=== PATIENT | female | born 2000 | race Caucasian/White ===

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

== ENCOUNTER 2019-01-04 12:44 | Outpatient (CLI) | payer OTHER, SELFPAY ==
[2019-01-07 12:48] LABS: HBs Antibody, Quant 6.9 mIU/mL; Hepatitis B Surface Ab Negative
[2019-01-07 13:07] LABS: Rubella IgG Ab (UVM) Positive; Varicella IgG Antibody Positive
[2019-01-07 13:16] LABS: Measles IgG Antibody Positive; Mumps Antibody IgG Positive (Negative)
[2019-01-07 13:45] LABS: TB Interpretation Negative (NEGAT)
== END 2019-01-04 13:04 ==
PROVIDERS: Nurse Practitioner Family; PCP Pediatrics; Visit Provider Pediatrics
DX: Z11.1 Encounter for screening for respiratory tuberculosis (principal); Z01.84 Encounter for antibody response examination
CPT/HCPCS: 36415; 86706; 86787; 86480; 86735; 86762; 86765

== ENCOUNTER 2020-03-13 11:09 | Outpatient (CLI) | payer OTHER, SELFPAY ==
[2020-03-13 12:13] LABS: HCG Quant, Pregnancy 548 mIU/mL (1-3)
== END 2020-03-13 11:29 ==
PROVIDERS: PCP Nurse Practitioner Family; Visit Provider Advanced Practice Midwife
DX: N91.2 Amenorrhea, unspecified (principal)
CPT/HCPCS: 36415; 84702

== ENCOUNTER 2020-03-16 02:37 | Outpatient (CLI) | payer OTHER, SELFPAY ==
[2020-03-16 14:01] LABS: HCG Quant, Pregnancy 1991 mIU/mL (1-3)
== END 2020-03-16 02:57 ==
PROVIDERS: PCP Nurse Practitioner Family; Visit Provider Advanced Practice Midwife
DX: N92.5 Other specified irregular menstruation (principal)
CPT/HCPCS: 36415; 84702

== ENCOUNTER 2020-11-11 16:02 | Outpatient (REF) | payer OTHER, SELFPAY ==
--- NOTE | 2020-11-11 11:45 | PAPFT_PTH ---
PATIENT: Stacy Hardy LOC: [facility]#:[id number] AGE/SX: 20/F ROOM: RE11/11/[address]: Whit Avelar : 2000 BED: DIS: 11/11/2020 SPEC #: [id number] RECD: 11/12/20 13:09 STATUS: RENEE RELara #: [id number] ASHLEY: 11/11/20 11:[address]: Whit Avelar DEPT: [facility] Cytology RECD BY: Luz Vasques Tissues: 1 - CX/ENDOCX FOR PAP SMEARS Procedures: PAP THIN PREP/UVM Screening Comments: [id number] (CHLAMYDIA/GC)
[2020-11-13 15:19] LABS: Chlamydia Result Negative (Negative); GC Result Negative (Negative)
== END 2020-11-11 16:03 | disposition home or self-care (01) ==
LOC: NCHCN 16:02
PROVIDERS: PCP Nurse Practitioner Family; Visit Provider Nurse Practitioner Family
DX: Z00.00 Encounter for general adult medical examination without abnormal findings (principal); Z11.3 Encounter for screening for infections with a predominantly sexual mode of transmission; Z12.4 Encounter for screening for malignant neoplasm of cervix; Z01.419 Encounter for gynecological examination (general) (routine) without abnormal findings
CPT/HCPCS: 87491; 87591; 88142

== ENCOUNTER 2020-12-04 13:44 | Outpatient (REF) | payer OTHER, SELFPAY ==
[2020-12-07 14:11] LABS: Chlamydia Result Negative (Negative); GC Result Negative (Negative)
== END 2020-12-04 13:45 | disposition home or self-care (01) ==
LOC: LBN 13:44
PROVIDERS: PCP Nurse Practitioner Family; Visit Provider Physician Assistant Medical
DX: N89.8 Other specified noninflammatory disorders of vagina (principal)
CPT/HCPCS: 87491; 87591; 87480; 87510; 87660

== ENCOUNTER 2021-04-21 09:25 | Outpatient (REF) | payer OTHER, SELFPAY ==
[2021-04-21 14:48] LABS: HCT 41.7 % (36.0-46.0); HGB 13.3 g/dL (11.2-15.7); MCH 27.9 pg (27.0-33.0); MCHC 31.9 % (32.0-36.0); MCV 87.6 fL (80-95); MPV 9.8 fL (8.0-11.0); Platelet Count 376 10^3/uL (130-400); RBC 4.76 10^6/uL (3.93-5.22); RDW 12.5 % (11.7-14.6); RDW-SD 40.3 fL; WBC 6.32 10^3/uL (4.4-10.8)
[2021-04-21 15:32] LABS: Anion Gap 9.9 mmol/L (3-11); BUN 9 mg/dL (7-18); CO2 26.1 mmol/L (21.0-32.0); CREATININE 0.6 mg/dL (0.55-1.02); Calcium 9.2 mg/dL (8.5-10.1); Chloride 103 mmol/L (98-107); Glucose 78 mg/dL (74-106); Potassium 4.1 mmol/L (3.5-5.1); Sodium 139 mmol/L (136-145)
[2021-04-21 15:34] LABS: Iron 113 ug/dL (50-170); Total Iron Binding Capacity 337 ug/dL (250-450); Transferrin Sat 34 % (15-50)
[2021-04-22 00:44] LABS: Vitamin D 25 Total 34.7 ng/mL (30-100)
== END 2021-04-21 09:26 | disposition home or self-care (01) ==
LOC: NCHCN 09:25
PROVIDERS: PCP Nurse Practitioner Family; Visit Provider Nurse Practitioner Family
DX: R53.83 Other fatigue (principal)
CPT/HCPCS: 80048; 82306; 85027; 83540; 83550; 84443

== ENCOUNTER 2021-08-30 18:18 | Outpatient (CLI) | payer OTHER, SELFPAY ==
[2021-08-30 14:06] LABS: Ferritin 87 ng/mL (8-252)
== END 2021-08-30 18:19 | disposition home or self-care (01) ==
LOC: LBO 18:19
PROVIDERS: PCP Nurse Practitioner Family; Visit Provider Nurse Practitioner
DX: G47.61 Periodic limb movement disorder (principal); M25.50 Pain in unspecified joint; M79.641 Pain in right hand; M79.642 Pain in left hand
CPT/HCPCS: 36415; 82728

== ENCOUNTER 2022-04-05 18:56 | Outpatient (REF) | payer OTHER, SELFPAY ==
[2022-04-05 15:34] LABS: Ferritin 204 ng/mL (8-252)
== END 2022-04-05 18:57 | disposition home or self-care (01) ==
LOC: NCHCN 18:56
PROVIDERS: PCP Nurse Practitioner Family; Visit Provider Nurse Practitioner Family
DX: R53.83 Other fatigue (principal); R40.0 Somnolence; L08.89 Other specified local infections of the skin and subcutaneous tissue
CPT/HCPCS: 82728

== ENCOUNTER 2024-02-09 01:47 | Outpatient (CLI) | payer OTHER, SELFPAY ==
--- OUTSIDE RECORDS SUMMARY | 2024-02-09 01:49 | XMS_ITS | Clinical Summary ---
Author Organization [facility] Address [address] [place] [id number] Care Team Providers Care Assistant Paralegal Name Role Phone Whit Avelar KARY Primary Care Provider [phone] Social History Tobacco Use Types Packs/Day Years Used Date Smoking Tobacco: Never Assessed Comments Unknown Sex and Gender Information Value Date Recorded Sex Assigned at Not on file Legal Sex Female 13:07 EDT Gender Identity Not on file Sexual Orientation Not on file Plan of Treatment Health Maintenance Due Date Last Done Comments Hepatitis C Screen 2000 Hepatitis B Vaccine (1 of 3 - 19+ 3-dose series) 04/11 COVID-19 Vaccine (2023- season) 2023 Insurance Care Teams Assistant Paralegal Relationship Specialty Start Date End Date Whit Avelar FNP [address] [place] [id number] PCP - General 05/25/22
--- OUTSIDE RECORDS SUMMARY | 2024-02-09 01:49 | XMS_ITS | Clinical Summary ---
Author Organization [facility] [place] [address] Care Team Providers Care Operations Label Clerk Name Role Phone Unknown Primary Care Provider Unavailabl e Allergies No known active allergies Medications No known medications Social History Tobacco Use Types Packs/Day Years Used Date Smoking Tobacco: Never Smokeless Tobacco: Never Sex and Gender Information Value Date Recorded Sex Assigned at Not on file Gender Identity Not on file Sexual Orientation Not on file Plan of Treatment Health Maintenance Due Date Last Done Comments Chlamydia Screening 2014 HPV vaccine (1 - 3-dose series) 2014 HIV screen 2017 Hepatitis C Screening 2017 Hepatitis B vaccine (0-59 yrs) (1) 2018 Tetanus/Diphtheria/Pertussis Vaccines (1 - Tdap) 04/11 PAP Smear 2020 Covid-19 Vaccine ( season) 2023 Influenza (Flu) vaccine (1 o f 1 - Influenza standard series) 11/26/2023 Advance Directives Documents on File Type Date Recorded Patient Corporate Counselor Expl anation Personal Corporate Counselor 01/15/2018 3:11 PM Linda Hardy Care Teams Operations Label Clerk Relationship Specialty Start Date End Date Unknown None PCP - General 08/10/21
--- OUTSIDE RECORDS SUMMARY | 2024-02-09 01:49 | XMS_ITS | Continuity of Care Document ---
Author Organization [facility] Address [address] [place] [id number] Care Team Providers Care Plasma Table Operator Name Role Phone MIQUEL SLIVERMAN Primary Care Physician Encounter LTTL_ME FIN NBR [id number] Date(s): 06/06/22 - 06/07/22 [facility] [address] [place] [address]- [place] Encounter Diagnosis Acute appendicitis(Discharge Diagnosis) - 06/07/22 Discharge Disposition: Home f/u Internal Provider Attending Physician: Gil Celestin MD Admitting Physician: Gil Celestin MD Allergies, Adverse Reactions, Alerts No Known Allergies Assessment and Plan Diagnostic Tests Pending * Pathology Request 06/07/22 Functional Status 06/07/22 Breakfast Percent 0 06/07/22 Living Environment No Living Environmen t Information Available Lives In Multilevel home Living Situation Home independently Home Barriers None 06/07/22 Anti-Embolism Device Activity: Patient r efused Family Member Travel History No recent t lamarel Recent Travel History No recent travel Other exposure to Infectious Disease Non e Medications oxyCODONE 5 mg oral tablet 5 mg = 1 tab, Oral, every 6 hr, PRN pain, breakthrough, X 3 days, # 5 tab, 0 Refill(s), 06/10/22 13:20:00 EDT, Pharmacy: [facility], [id number], cm, 06/07/22 4:14:00 EDT, Height/Length Dosing, 92.7, kg, 06/07/22 4:14:00 EDT, Weight Dosing Start Date: 06/07/22 Stop Date: 06/10/22 Status: Ordered Mental Status 06/07/22 Eye Opening Response Caroline Spontaneous ly Best Verbal Response Caroline Oriented Best Motor Response Bard Obeys comman ds Bard Coma Score 15 Problem List No Known Problems Procedures Procedure Date Related Diagnosis Body Site Status Appendectomy Laparoscopy 1 06/07/22 Completed 1auto-populated from documented surgical case Results Laboratory List Name Date SARS-CoV-2 (COVID-19)/Flu/RSV (GeneXpert ) 06/07/22 Urinalysis with Micro if Indicated and C ulture if Indicated 06/07/22 Automated Diff 06/07/22 CBC w/ Diff 06/07/22 Comprehensive Metabolic Panel (CMP) 06/07 Test Serum Qual 06/07/22 Most recent to oldest [Reference Range]: 1 WBC [4.8-10.8 K/mcL] 19.2 K/mcL *HI* (06/07/22 12:01 AM) RBC [4.20-5.40 Million/mcL] 4.81 Million /mcL (06/07/22 12:01 AM) Neutro Auto [42.2-75.2 %] 84.5 % *HI* (06/07/22 12:01 AM) Lymph Auto [20.5-51.1 %] 8.0 % *LOW* (06/07/22 12:01 AM) Foster Auto [1.7-9.3 %] 6.7 % (06/07/22 12:01 AM) Basophil Auto [0.0-0.8 %] 0.3 % (06/07/22 12:01 AM) BUN [8-26 mg/dL] 13 mg/dL (06/07/22 12:01 AM) UA Color [Yellow] Yellow (06/07/22 12:25 AM) Glucose Level [74-106 mg/dL] 132 mg/dL *HI* (06/07/22 12:01 AM) Potassium Level [3.5-5.1 mmol/L] 4.0 mmo l/L (06/07/22 12:01 AM) Baso Absolute [0.0-0.2 K/mcL] 0.1 K/mcL (06/07/22 12:01 AM) MCV [81.0-99.0 fL] 87.1 fL (06/07/22 12:01 AM) UA Urobilinogen [0.2] 0.2 (06/07/22 12:25 AM) UA Bili [Negative] Negative (06/07/22 12:25 AM) UA Ketones >=80 mg/dL *NA* (06/07/22 AM) AST [15-41 IntlUnit/L] 21 IntlUnit/L (06/07/22 12 AM) ALT [14-54 IntlUnit/L] 23 IntlUnit/L (06/07/22 AM) MCHC [32.0-36.0 g/dL] 32.7 g/dL (06/07/22 AM) Osmolality [275-295 mOsm/kg] 276 mOsm/kg (06/07/22 AM) Sodium Level [134-143 mmol/L] 137 mmol/L (06/07/22 AM) UA Leuk Est [Negative] Negative (06/07/22 AM) Lymph Absolute [1.2-3.4 K/mcL] 1.5 K/mcL (06/07/22 AM) UA Nitrite [Negative] Negative (06/07/22 AM) UA Glucose [Negative] Negative (06/07/22) Hct [37.0-47.0 %] 41.9 % (06/07/22 AM) Calcium Level [8.9-10.3 mg/dL] 9.3 mg/dL (06/07/22 AM) Foster Absolute [0.1-0.6 K/mcL] 1.3 K/mcL *HI* (06/07/22 AM) Albumin Level [3.5-5.0 g/dL] 4.4 g/dL (06/07/22 AM) Protein Total [6.5-8.1 g/dL] 7.3 g/dL (06/07/22 AM) UA Protein [Negative] Negative (06/07/22 AM) MCH [27.0-31.0 pg] 28.5 pg (06/07/22 AM) Neutro Absolute [1.4-6.5 K/mcL] 16.2 K/m cL *HI* (06/07/22 AM) Bilirubin Total [0.2-1.2 mg/dL] 0.8 mg/d L (06/07/22 AM) Hgb [12.0-16.0 g/dL] 13.7 g/dL (06/07/22 12: AM) Alk Phos [38-130 IntlUnit/L] 65 IntlUnit /L (06/07/22 12: AM) UA Blood [Negative] Negative (06/07/22 12: AM) MPV [7.4-10.4 fL] 9.5 fL (06/07/22 12: AM) UA Spec Grav 1.020 *NA* (06/07/22 AM) Platelets [130-400 K/mcL] 376 K/mcL (06/07/22 AM) CO2 [22-32 mmol/L] 23 mmol/L (06/07/22 AM) Eos Absolute [0.0-0.2 K/mcL] 0.0 K/mcL (06/07/22: AM) UA pH 7.00 *NA* (06/07/22 AM) UA Appear [Clear] Slightly Cloudy *ABN* (06/07/22: AM) Chloride Level [98-111 mmol/L] 104 mmol/ L (06/07/22 12: AM) RDW-CV [11.5-14.5 %] 12.4 % (06/07/22 12: AM) A/G Ratio 1.5 *NA* (06/07/22 12: AM) BUN/Creat Ratio [8.0-20.0] 23.6 *HI* (06/07/22 12: AM) Globulin 2.9 *NA* (06/07/22: AM) hCG Qual Serum [Negative] Negative (06/07/22 12: AM) Imm Gran Absolute 0.08 *NA* (06/07/22 12: AM) Imm Gran Auto [0.0-0.5 %] 0.4 % (06/07/22 12: AM) Urine Srce Clean Catch (06/07/22 12:25 AM) Creatinine Level [0.44-1.00 mg/dL] 0.55 mg/dL (06/07/22 12:01 AM) Employed in healthcare? No *NA* (06/07/22 2:10 AM) Symptomatic as defined by CDC? No *NA* (06/07/22 2:10 AM) Hospitalized due to COVID-19? No *NA* (06/07/22 2:10 AM) In ICU? No *NA* (06/07/22 2:10 AM) Group care resident? No *NA* (06/07/22 2:10 AM) status? Not *NA* (06/07/22 2:10 AM) SARS-CoV-2(Covid19)PCR(GXpert COVFLURSV) [Negative] Negative (06/07/22 2:10 AM) Flu A (GXpert COVFLURSV) [Negative] Nega tive (06/07/22 2:10 AM) RSV (GXpert COVFLURSV) [Negative] Negati ve (06/07/22 2:10 AM) Flu B (GXpert COVFLURSV) [Negative] Nega tive (06/07/22 2:10 AM) Anion Gap [3.0-12.0] 10.0 (06/07/22 12:01 AM) Eos, Auto [0.00-3.00 %] 0.10 % (06/07/22 12:01 AM) eGFR CKD-EPI [>=60 mL/min/1.73 m2] 132 m L/min/1.73 m2 (06/07/22 12:01 AM) Radiology Reports * Exam Date Time Procedure Performing Provider Status 06/07/22 12:[address] Abdomen and Pelvis w/ Contrast Dm James; Modified Notes: (CT Abdomen and Pelvis w/ Contrast) Reason For Exam: rlq pain CT Abdomen and Pelvis w/ Contrast ADDENDUM THIS REPORT CONTAINS FINDINGS THAT MAY BE CRITICAL TO PATIENT CARE. The findings were verbally communicated via telephone conference with Summer Jefferson at 1:52 AM EDT on 06/07/2022. The findings were acknowledged and understood. THIS DOCUMENT HAS BEEN ELECTRONICALLY SIGNED BY DM MCCORMACK MD on 06/07/2022 01:52 AM Final Signed by: Dm Mccormack MD Signed (Electronic Signature): 06/07/2022 1:[address] Abdomen and Pelvis w/ Contrast PROCEDURE INFORMATION: Exam: CT Abdomen And Pelvis With Contrast Exam date and time: 06/07/2022 12:48 AM Age: 22 years old Clinical indication: RLQ abdominal pain TECHNIQUE: Imaging protocol: Computed tomography of the abdomen and pelvis with contrast. Radiation optimization: All CT scans at this facility use at least one of these dose optimization techniques: automated exposure control; mA and/or kV adjustment per patient size (includes targeted exams where dose is matched to clinical indication); or iterative reconstruction. Contrast material: ISOVUE 300; Contrast volume: 100 ml; Contrast route: INTRAVENOUS (IV); REPORTING DATA: Count of CT and Cardiac NM exams in prior 12 months: This patient has received 0 known CTs and 0 known cardiac nuclear medicine studies in the 12 months prior to the current study. COMPARISON: No relevant prior studies available. FINDINGS: Lungs: No acute infiltrate in either lung base. Liver: Normal. No mass. Gallbladder and bile ducts: Normal. No calcified stones. No ductal dilation. Pancreas: Normal. No ductal dilation. Spleen: Normal. No splenomegaly. Adrenal glands: Normal. No mass. Kidneys and ureters: No hydronephrosis. No calcified renal or ureteral stones. No perinephric stranding or perinephric fluid. Stomach and bowel: Unremarkable. No obstruction. No mucosal thickening. Appendix: Fluid-filled dilated appendix measuring up to 9-10 mm in caliber with multiple small internal appendicoliths or debris. Trace periappendiceal stranding. No associated perforation or abscess. Intraperitoneal space: No intraperitoneal free air. Small amount of free fluid in the dependent portion of the pelvis. Vasculature: Unremarkable. No abdominal aortic aneurysm. Lymph nodes: No enlarged lymph nodes. Urinary bladder: Unremarkable as visualized. Reproductive: Unremarkable as visualized. Bones/joints: Unremarkable. No acute fracture. Soft tissues: Small fat-containing umbilical hernia. IMPRESSION: EARLY ACUTE APPENDICITIS: Fluid-filled dilated appendix measuring up to 9-10 mm in caliber with multiple small internal appendicoliths or debris. Trace periappendiceal stranding. No associated perforation or abscess. THIS DOCUMENT HAS BEEN ELECTRONICALLY SIGNED BY DM MCCORMACK MD on 06/07/2022 01:49 AM Final Signed by: Dm Mccormack MD Signed (Electronic Signature): 06/07/2022 1:49 am Vital Signs Most recent to oldest [Reference Range]: 1 2 3 Temperature Temporal Artery [36-38 Deg C] 36.5 Deg C (06/07/22 3:07 PM) 38.0 Deg C (06/07/22 2:41 PM) 37.8 Deg C (06/07/22 12:24 PM) Temperature Temporal Artery (DegF) [97.3-100 Deg F] 100.04 Deg F *HI* (06/07/22 12:24 PM) Peripheral Pulse Rate [60-100 bpm] 72 bpm (06/07/22 2:18 PM) 74 bpm (06/07/22 1:45 PM) 76 bpm (06/07/22 1:16 PM) Heart Rate Monitored [60-100 bpm] 88 bpm (06/07/22 5:38 PM) 84 bpm (06/07/22 4:00 PM) 80 bpm (06/07/22 3:30 PM) Respiratory Rate [12-24 br/min] 15 br/min (06/07/22 12:50 PM) 9 br/min *LOW* (06/07/22 12:33 PM) 18 br/min (06/07/22 7:28 AM) Blood Pressure [90-140/60-90 mmHg] 132/84mmHg (06/07/22 5:38 PM) 124/89mmHg (06/07/22 4:00 PM) 132/86mmHg (06/07/22 3:30 PM) Mean Arterial Pressure, Cuff [65-140 mmHg] 96 mmHg (06/07/22 12:50 PM) 97 mmHg (06/07/22 12:33 PM) 91 mmHg (06/07/22 12:24 PM) Mean Arterial Pressure Cuff 94 mmHg (06/07/22 12:50 PM) 95 mmHg (06/07/22 12:33 PM) 90 mmHg (06/07/22 12:24 PM) Blood Pressure Location Right arm (06/07/22 4:09 AM) Patient Position BP Supine (06/07/22 4:09 AM) Weight 92.700 kg (06/07/22 4:09 AM) 92.700 kg (06/07/22 4:08 AM) 91.63 kg (06/06/22 11:48 PM) Weight Dosing 92.700 kg (06/07/22 4:09 AM) 92.700 kg (06/07/22 4:08 AM) 91.63 kg (06/06/22 11:57 PM) Height 167.640 cm (06/07/22 4:09 AM) 167.640 cm (06/07/22 4:08 AM) 167.640 cm (06/06/22 11:48 PM) Height/Length Dosing 167.640 cm (06/07/22 4:09 AM) 167.640 cm (06/07/22 4:08 AM) 167.640 cm (06/06/22 11:57 PM) Body Mass Index 32.990 kg/m2 (06/07/22 4:09 AM) 32.990 kg/m2 (06/07/22 4:08 AM) 33.000 kg/m2 (06/06/22 11:48 PM) Social History Social History Type Response Tobacco Never tobacco user T obacco Use:. Sex Hospital Discharge Instructions Patient Education 06/07/2022 12:19:34 Laparoscopic Appendectomy, Adult, Care After Laparoscopic Appendectomy, Adult, Care After This sheet gives you information about how to care for yourself after your procedure. Your health care provider may also give you more specific instructions. If you have problems or questions, contact your health care provider. What can I expect after the procedure? After the procedure, it is common to have: ??? Little energy for normal activities. ??? Mild pain in the area where the incisions were made. ??? Difficulty passing stool (constipation). This can be caused by: ??? Pain medicine. ??? A decrease in your activity. Follow these instructions at home: Medicines ??? Take gzke-zpl-dlctyol and prescription medicines only as told by your health care provider. ??? If you were prescribed an antibiotic medicine, take it as told by your health care provider. Donot stop taking the antibiotic even if you start to feel better. ??? Do not drive or use heavy machinery while taking prescription pain medicine. ??? Ask your health care provider if the medicine prescribed to you can cause constipation. You mayneed to take steps to prevent or treat constipation, such as: ??? Drink enough fluid to keep your urine pale yellow. ??? Take spwr-imu-ewqpvuh or prescription medicines. ??? Eat foods that are high in fiber, such as beans, whole grains, and fresh fruits and vegetables. ??? Limit foods that are high in fat and processed sugars, such as fried or sweet foods. Incision care ??? Follow instructions from your health care provider about how to take care of your incisions. Make sure you: ??? Wash your hands with soap and water before and after you change your bandage (dressing). If soap and water are not available, use hand accounting support specialist. ??? Change your dressing as told by your health care provider. ??? Leave stitches (sutures), skin glue, or adhesive strips in place. These skin closures may need to stay in place for 2 weeks or longer. If adhesive strip edges start to loosen and curl up, you maytrim the loose edges. Do not remove adhesive strips completely unless your health care provider tells you to do that. ??? Check your incision areas every day for signs of infection. Check for: ??? Redness, swelling, or pain. ??? Fluid or blood. ??? Warmth. ??? Pus or a bad smell. Bathing ??? Keep your incisions clean and dry. Clean them as often as told by your health care provider. Todo this: 1. Gently wash the incisions with soap and water. 2. Rinse the incisions with water to remove all soap. 3. Pat the incisions dry with a clean towel. Do not rub the incisions. ??? Do not take baths, swim, or use a hot tub for 2 weeks, or until your health care provider approves. You may take showers after 48 hours. Activity ??? Do not drive for 24 hours if you were given a sedative during your procedure. ??? Rest after the procedure. Return to your normal activities as told by your health care provider. Ask your health care provider what activities are safe for you. ??? For 3 weeks, or for as long as told by your health care provider: ??? Do not lift anything that is heavier than 10 lb (4.5 kg), or the limit that you are told. ??? Do not play contact sports. General instructions ??? If you were sent home with a drain, follow instructions from your health care provider about how to care for it. ??? Take deep breaths. This helps to prevent your lungs from developing an infection (pneumonia). ??? Keep all follow-up visits as told by your health care provider. This is important. Contact a health care provider if: ??? You have redness, swelling, or pain around an incision. ??? You have fluid or blood coming from an incision. ??? Your incision feels warm to the touch. ??? You have pus or a bad smell coming from an incision or dressing. ??? Your incision edges break open after your sutures have been removed. ??? You have increasing pain in your shoulders. ??? You feel dizzy or you faint. ??? You develop shortness of breath. ??? You keep feeling nauseous or you are vomiting. ??? You have diarrhea or you cannot control your bowel functions. ??? You lose your appetite. ??? You develop swelling or pain in your legs. ??? You develop a rash. Get help right away if you have: ??? A fever. ??? Difficulty breathing. ??? Sharp pains in your chest. Summary ??? After a laparoscopic appendectomy, it is common to have little energy for normal activities, mild pain in the area of the incisions, and constipation. ??? Infection is the most common complication after this procedure. Follow your health care provider's instructions about caring for yourself after the procedure. ??? Rest after the procedure. Return to your normal activities as told by your health care provider. ??? Contact your health care provider if you notice signs of infection around your incisions or youdevelop shortness of breath. Get help right away if you have a fever, chest pain, or difficulty breathing. This information is not intended to replace advice given to you by your health care provider. Make sure you discuss any questions you have with your health care provider. Document Revised: 09/13/2018 Document Reviewed: 09/13/2018 [facility] [facility] Patient Education ?? 2021 [employer]. Follow Up Care 06/06/2022 23:48:18 With:Gil Celestin MD Address: [facility] [address] [address]- When:07/04/2022 08:00:00 Discharge instructions * [place]: PERFORM Event Display: Discharge Instructions Authored Date: [id number] STACY HUNTER :2000 Age:22 years Sex:Female Visit Date:06/06/2022 Primary Care Physician: MIQUEL SILVERMAN Hospital Discharge Instructions We would like to thank you for allowing us to assist you with your healthcare needs. The following includes patient education materials and information regarding your injury/illness. After you leave the hospital, you may get your health information including your test results, physician notes and discharge information by accessing your Patient Portal. Your Next Steps Instructions From Your Care Team Plan to rest and relax today after your procedure/operation. Even after minor surgery you may feel drowsy or tired for several hours. You may also have a sore throat and muscle aches.??DO NOT??drink alcohol after anesthesia or while taking pain medications. You should not drive any vehicle or operate machinery until your doctor says it???s safe.??DO NOT??make any major decisions, sign contracts, etc. for 24 hours. ?? Activity: ?Rest today, tomorrow resume your usual activity. ?Lift no more than 10 pounds until your follow up appointment. Diet: ?Advance to a regular diet. Medications: ?Continue your regular medications ?Prescription given to patient:??oxycodone 5 mg every 6 hours as needed for pain not controlled with Tylenol and ibuprofen ?Last dose of pain ??medication given at hospital: ?Over the counter medications: Tylenol and/or Ibuprofen every 6 hours when needed for pain ?Last dose of over the counter medication given at the hospital: Dressing: ?Your incisions are closed with glue (derma whitten) DO NOT pick or scrub at it. ?Apply ice pack over dressing site for 20 mins on/20 mins off for the first several days. Special Instructions: ?You may take a shower after 48 hours. ?No bathing, soaking or swimming for 2 weeks. ?You may drive after ALL pain medications are stopped. ?? YOU SHOULD CALL YOUR DOCTOR??AT ??FOR ANY OF THE FOLLOWING ?Fever of 101 or higher. ?Pain that does not lessen with the pain medication prescribed. ?Cloudy or foul smelling drainage from the incision. ?Redness, warmth and firmness around the incision. ?Increased numbness or tingling. ?Bleeding or continuous oozing that saturates the bandage and does not stop after applying pressure to incision for 20 minutes. ?Increased swelling of fingers or toes, or severe tightness of bandage not relieved with elevation of limb above the level of your heart. ?Pale blue or cold fingers/toes or nail beds as compared with the opposite side. ?? IF UNABLE TO REACH YOUR DOCTOR GO TO YOUR NEAREST EMERGENCY ROOM ?? Recommended Treatments for Opioid Induced Constipation ?? Dosage Schedule Drug Brand Names Dose Daily Senna-docusate 8.5-5mg per tablet Senokot 2 tablets by mouth 2 times per day (Hold for loose stool) As Needed Magnesium Hydroxide Milk of Magnesia 30mL by mouth 2 times per day as needed As Needed Polyethylene Glycol Miralax 17 grams dissolved in 8 ounces of water, juice or tea once daily as needed As Needed Bisacodyl?? Dulcolax 10mg by mouth once a day as needed for constipation As Needed Phosphate enema Fleet enema 120mL rectally once a day as needed for constipation As Needed Magnesium citrate ?? 150 to 300 mL (1.745g/30mL solution) by mouth once a day as needed for constipation ? Patient/Responsible libertarian signature:? Date/Time: ? RN signature: ? Date/Time: ?? This document was electronically generated via computerized provider telephone order clerk room service (CPOE) by the ordering physician,??Gil Celestin MD Discharge Orders Discharge Disposition, 06/07/22 13:20:00 EDT, Home Independently Follow Up Appointments Follow Up with??Gil Celestin MD When:??07/04/2022 09:00 AM EDT Where: [facility] [address] [place] [address]- Medications What How Much When Instructions Next Dose New oxyCODONE (oxyCODONE 5 mg oral tablet) 1 tab Oral (given by mouth) Every 6 hours as needed for pain, breakthrough Duration: 3 Days Pickup at [facility] Pharmacy Information [facility]: [address], [place] [phone] Your Summary Your Care Team Admitting Physician - Gil Celestin MD Attending Physician - Gil Celestin MD Primary Care Physician - MIQUEL SILVERMAN Your Diagnosis Acute appendicitis Procedures History ???Appendectomy Laparoscopy (06/07/2022) Tests Performed/Pending Automated Diff CBC w/ Diff CMP Pathology Request?-- Results Pending -- Test Serum Qual SARS-CoV-2 (COVID-19)/Flu/RSV (GeneXpert) Urinalysis with Micro if Indicated and Culture if Indicated CT Abdomen and Pelvis w/ Contrast Discharge Vitals Temperature??(Temporal Artery) 97.7 ??F (36.5 ??C) Heart Rate??(Monitored) 84 Respiratory Rate?? 15 Blood Pressure?? 127/81?? Height?? 66.00 in (167.640 cm) Weight?? 204.40 lb (92.700 kg) BMI?? 32.990 Allergies No Known Allergies Education Materials Laparoscopic Appendectomy, Adult, Care After This sheet gives you information about how to care for yourself after your procedure. Your health care provider may also give you more specific instructions. If you have problems or questions, contact your health care provider. What can I expect after the procedure? After the procedure, it is common to have: ? Little energy for normal activities. ? Mild pain in the area where the incisions were made. ? Difficulty passing stool (constipation). This can be caused by: ? Pain medicine. ? A decrease in your activity. Follow these instructions at home: Medicines ? Take eadz-gsn-snjwost and prescription medicines only as told by your health care provider. ? If you were prescribed an antibiotic medicine, take it as told by your health care provider. Do notstop taking the antibiotic even if you start to feel better. ? Do not drive or use heavy machinery while taking prescription pain medicine. ? Ask your health care provider if the medicine prescribed to you can cause constipation. You may need to take steps to prevent or treat constipation, such as: ? Drink enough fluid to keep your urine pale yellow. ? Take fnec-yqo-rcutsbh or prescription medicines. ? Eat foods that are high in fiber, such as beans, whole grains, and fresh fruits and vegetables. ? Limit foods that are high in fat and processed sugars, such as fried or sweet foods. Incision care ? Follow instructions from your health care provider about how to take care of your incisions. Make sure you: ? Wash your hands with soap and water before and after you change your bandage (dressing). If soap and water are not available, use hand accounting support specialist. ? Change your dressing as told by your health care provider. ? Leave stitches (sutures), skin glue, or adhesive strips in place. These skin closures may need to stay in place for 2 weeks or longer. If adhesive strip edges start to loosen and curl up, you may trim the loose edges. Do not remove adhesive strips completely unless your health care provider tells you to do that. ? Check your incision areas every day for signs of infection. Check for: ? Redness, swelling, or pain. ? Fluid or blood. ? Warmth. ? Pus or a bad smell. Bathing ? Keep your incisions clean and dry. Clean them as often as told by your health care provider. To do this: 1.?? Gently wash the incisions with soap and water. 2.?? Rinse the incisions with water to remove all soap. 3.?? Pat the incisions dry with a clean towel. Do not rub the incisions. ? Do not take baths, swim, or use a hot tub for 2 weeks, or until your health care provider approves.You may take showers after 48 hours. Activity ? Do not drive for 24 hours if you were given a sedative during your procedure. ? Rest after the procedure. Return to your normal activities as told by your health care provider. Ask your health care provider what activities are safe for you. ? For 3 weeks, or for as long as told by your health care provider: ? Do not lift anything that is heavier than 10 lb (4.5 kg), or the limit that you are told. ? Do not play contact sports. General instructions ? If you were sent home with a drain, follow instructions from your health care provider about how tocare for it. ? Take deep breaths. This helps to prevent your lungs from developing an infection (pneumonia). ? Keep all follow-up visits as told by your health care provider. This is important. Contact a health care provider if: ? You have redness, swelling, or pain around an incision. ? You have fluid or blood coming from an incision. ? Your incision feels warm to the touch. ? You have pus or a bad smell coming from an incision or dressing. ? Your incision edges break open after your sutures have been removed. ? You have increasing pain in your shoulders. ? You feel dizzy or you faint. ? You develop shortness of breath. ? You keep feeling nauseous or you are vomiting. ? You have diarrhea or you cannot control your bowel functions. ? You lose your appetite. ? You develop swelling or pain in your legs. ? You develop a rash. Get help right away if you have: ? A fever. ? Difficulty breathing. ? Sharp pains in your chest. Summary ? After a laparoscopic appendectomy, it is common to have little energy for normal activities, mild pain in the area of the incisions, and constipation. ? Infection is the most common complication after this procedure. Follow your health care provider's instructions about caring for yourself after the procedure. ? Rest after the procedure. Return to your normal activities as told by your health care provider. ? Contact your health care provider if you notice signs of infection around your incisions or you develop shortness of breath. Get help right away if you have a fever, chest pain, or difficulty breathing. This information is not intended to replace advice given to you by your health care provider. Make sure you discuss any questions you have with your health care provider. Document Revised: 09/13/2018 Document Reviewed: 09/13/2018 [employer] Patient Education ?? 2021 [employer] Patient Name:STACY HUNTER I have received this information and my questions have been answered. Patient/Brush Clearing Laborer Name: Patient/Brush Clearing Laborer Signature: Relationship to Patient: Witness Name/Signature: Date: Electronically Signed on: 06/07/2022 15:54 EDTSigned by:SRIRAM Celestin MD: PERFORM Event Display: Discharge Instructions Authored Date: [id number] DALE STACY :2000 Age:22 years Sex:Female Visit Date:06/06/2022 Primary Care Physician: MIQUEL SILVERMAN Hospital Discharge Instructions We would like to thank you for allowing us to assist you with your healthcare needs. The following includes patient education materials and information regarding your injury/illness. After you leave the hospital, you may get your health information including your test results, physician notes and discharge information by accessing your Patient Portal. Your Next Steps Instructions From Your Care Team Plan to rest and relax today after your procedure/operation. Even after minor surgery you may feel drowsy or tired for several hours. You may also have a sore throat and muscle aches.??DO NOT??drink alcohol after anesthesia or while taking pain medications. You should not drive any vehicle or operate machinery until your doctor says it???s safe.??DO NOT??make any major decisions, sign contracts, etc. for 24 hours. ?? Activity: ?Rest today, tomorrow resume your usual activity. ?Lift no more than 10 pounds until your follow up appointment. Diet: ?Advance to a regular diet. Medications: ?Continue your regular medications ?Prescription given to patient:??oxycodone 5 mg every 6 hours as needed for pain not controlled with Tylenol and ibuprofen ?Last dose of pain ??medication given at hospital: ?Over the counter medications: Tylenol and/or Ibuprofen every 6 hours when needed for pain ?Last dose of over the counter medication given at the hospital: Dressing: ?Your incisions are closed with glue (derma whitten) DO NOT pick or scrub at it. ?Apply ice pack over dressing site for 20 mins on/20 mins off for the first several days. Special Instructions: ?You may take a shower after 48 hours. ?No bathing, soaking or swimming for 2 weeks. ?You may drive after ALL pain medications are stopped. ?? YOU SHOULD CALL YOUR DOCTOR??AT ??FOR ANY OF THE FOLLOWING ?Fever of 101 or higher. ?Pain that does not lessen with the pain medication prescribed. ?Cloudy or foul smelling drainage from the incision. ?Redness, warmth and firmness around the incision. ?Increased numbness or tingling. ?Bleeding or continuous oozing that saturates the bandage and does not stop after applying pressure to incision for 20 minutes. ?Increased swelling of fingers or toes, or severe tightness of bandage not relieved with elevation of limb above the level of your heart. ?Pale blue or cold fingers/toes or nail beds as compared with the opposite side. ?? IF UNABLE TO REACH YOUR DOCTOR GO TO YOUR NEAREST EMERGENCY ROOM ?? Recommended Treatments for Opioid Induced Constipation ?? Dosage Schedule Drug Brand Names Dose Daily Senna-docusate 8.5-5mg per tablet Senokot 2 tablets by mouth 2 times per day (Hold for loose stool) As Needed Magnesium Hydroxide Milk of Magnesia 30mL by mouth 2 times per day as needed As Needed Polyethylene Glycol Miralax 17 grams dissolved in 8 ounces of water, juice or tea once daily as needed As Needed Bisacodyl?? Dulcolax 10mg by mouth once a day as needed for constipation As Needed Phosphate enema Fleet enema 120mL rectally once a day as needed for constipation As Needed Magnesium citrate ?? 150 to 300 mL (1.745g/30mL solution) by mouth once a day as needed for constipation ? Patient/Responsible libertarian signature:? Date/Time: ? RN signature: ? Date/Time: ?? This document was electronically generated via computerized provider telephone order clerk room service (CPOE) by the ordering physician,??Gil Celestin MD Discharge Orders Discharge Disposition, 06/07/22 13:20:00 EDT, Home Independently Discharge Patient Instructions, Lift restrictions of 10 pounds until follow-up appointment Discharge Patient Instructions, No bathing, soaking, or swimming for 10 days Discharge Patient Instructions, Apply ice pack for 20 minutes on and 20 minutes off for first several days Follow Up Appointments Follow Up with??Gil Celestin MD When:??07/04/2022 09:00 AM EDT Where: [facility] [address] [place] [id number]- Medications What How Much When Instructions Next Dose New oxyCODONE (oxyCODONE 5 mg oral tablet) 1 tab Oral (given by mouth) Every 6 hours as needed for pain, breakthrough Duration: 3 Days Pickup at [facility] Pharmacy Information [facility]: [address] [facility] [place] [phone] Your Summary Your Care Team Admitting Physician - Gil Celestin MD Attending Physician - Gil Celestin MD Primary Care Physician - MIQUEL SILVERMAN Your Diagnosis Acute appendicitis Procedures History ???Appendectomy Laparoscopy (06/07/2022) Tests Performed/Pending Automated Diff CBC w/ Diff CMP Test Serum Qual SARS-CoV-2 (COVID-19)/Flu/RSV (GeneXpert) Urinalysis with Micro if Indicated and Culture if Indicated CT Abdomen and Pelvis w/ Contrast Discharge Vitals Temperature??(Temporal Artery) 100.0 ??F (37.8 ??C) Heart Rate??(Peripheral) 76 Respiratory Rate?? 15 Blood Pressure?? 124/77?? Height?? 66.00 in (167.640 cm) Weight?? 204.40 lb (92.700 kg) BMI?? 32.990 Allergies No Known Allergies Education Materials Laparoscopic Appendectomy, Adult, Care After This sheet gives you information about how to care for yourself after your procedure. Your health care provider may also give you more specific instructions. If you have problems or questions, contact your health care provider. What can I expect after the procedure? After the procedure, it is common to have: ? Little energy for normal activities. ? Mild pain in the area where the incisions were made. ? Difficulty passing stool (constipation). This can be caused by: ? Pain medicine. ? A decrease in your activity. Follow these instructions at home: Medicines ? Take kuzy-kon-fsqhhel and prescription medicines only as told by your health care provider. ? If you were prescribed an antibiotic medicine, take it as told by your health care provider. Do notstop taking the antibiotic even if you start to feel better. ? Do not drive or use heavy machinery while taking prescription pain medicine. ? Ask your health care provider if the medicine prescribed to you can cause constipation. You may need to take steps to prevent or treat constipation, such as: ? Drink enough fluid to keep your urine pale yellow. ? Take rzgd-cbm-wrdgxoi or prescription medicines. ? Eat foods that are high in fiber, such as beans, whole grains, and fresh fruits and vegetables. ? Limit foods that are high in fat and processed sugars, such as fried or sweet foods. Incision care ? Follow instructions from your health care provider about how to take care of your incisions. Make sure you: ? Wash your hands with soap and water before and after you change your bandage (dressing). If soap and water are not available, use hand accounting support specialist. ? Change your dressing as told by your health care provider. ? Leave stitches (sutures), skin glue, or adhesive strips in place. These skin closures may need to stay in place for 2 weeks or longer. If adhesive strip edges start to loosen and curl up, you may trim the loose edges. Do not remove adhesive strips completely unless your health care provider tells you to do that. ? Check your incision areas every day for signs of infection. Check for: ? Redness, swelling, or pain. ? Fluid or blood. ? Warmth. ? Pus or a bad smell. Bathing ? Keep your incisions clean and dry. Clean them as often as told by your health care provider. To do this: 1.?? Gently wash the incisions with soap and water. 2.?? Rinse the incisions with water to remove all soap. 3.?? Pat the incisions dry with a clean towel. Do not rub the incisions. ? Do not take baths, swim, or use a hot tub for 2 weeks, or until your health care provider approves.You may take showers after 48 hours. Activity ? Do not drive for 24 hours if you were given a sedative during your procedure. ? Rest after the procedure. Return to your normal activities as told by your health care provider. Ask your health care provider what activities are safe for you. ? For 3 weeks, or for as long as told by your health care provider: ? Do not lift anything that is heavier than 10 lb (4.5 kg), or the limit that you are told. ? Do not play contact sports. General instructions ? If you were sent home with a drain, follow instructions from your health care provider about how tocare for it. ? Take deep breaths. This helps to prevent your lungs from developing an infection (pneumonia). ? Keep all follow-up visits as told by your health care provider. This is important. Contact a health care provider if: ? You have redness, swelling, or pain around an incision. ? You have fluid or blood coming from an incision. ? Your incision feels warm to the touch. ? You have pus or a bad smell coming from an incision or dressing. ? Your incision edges break open after your sutures have been removed. ? You have increasing pain in your shoulders. ? You feel dizzy or you faint. ? You develop shortness of breath. ? You keep feeling nauseous or you are vomiting. ? You have diarrhea or you cannot control your bowel functions. ? You lose your appetite. ? You develop swelling or pain in your legs. ? You develop a rash. Get help right away if you have: ? A fever. ? Difficulty breathing. ? Sharp pains in your chest. Summary ? After a laparoscopic appendectomy, it is common to have little energy for normal activities, mild pain in the area of the incisions, and constipation. ? Infection is the most common complication after this procedure. Follow your health care provider's instructions about caring for yourself after the procedure. ? Rest after the procedure. Return to your normal activities as told by your health care provider. ? Contact your health care provider if you notice signs of infection around your incisions or you develop shortness of breath. Get help right away if you have a fever, chest pain, or difficulty breathing. This information is not intended to replace advice given to you by your health care provider. Make sure you discuss any questions you have with your health care provider. Document Revised: 09/13/2018 Document Reviewed: 09/13/2018 [employer] Patient Education ?? 2021 [employer] Patient Name:STACY HUNTER I have received this information and my questions have been answered. Patient/Brush Clearing Laborer Name: Patient/Brush Clearing Laborer Signature: Relationship to Patient: Witness Name/Signature: Date: Electronically Signed on: 06/07/2022 13:26 EDTSigned by:U Physician Emergency department Note * Summer Jefferson MD: PERFORM Event Display: ED Note Physician Authored Date: [id number] STACY HUNTER :2000 Age:22 years Sex:Female Visit Date:06/06/2022 Primary Care Physician: MIQUEL SILVERMAN Basic Information Time Seen: Summer Jefferson MD / 06/06/2022 23:50 Chief Complaint RLQ pain, abd cramping x 1 day History Of Present Illness: This patient is a 22-year-old female presents today for evaluation of right lower quadrant pain.?? She states the pain started around noon today.?? She did have breakfast and lunch but only had a small snack after this.?? She states that she has not had any fever but has had some nausea vomiting.??No diarrhea.?? The patient has not had any fevers or chills associated with this.?? She describes it as being a cramping type pain which is primarily in the right lower quadrant but also somewhat diffuse over the abdomen.?? Her last menstrual period was May 22. Review of Systems: CONSTITUTIONAL:??No fevers or chills. EYES:??No change in vision. ENT:??No sore throat. ??No headache. ??No neck pain. CARDIOVASCULAR:??No chest pain, palpitations or passing out episodes. RESPIRATORY:??No cough, shortness of breath or hemoptysis. GI:??+abdominal pain. + nausea,+ vomiting no diarrhea. :??No change in urination. SKIN:??No rash. NEUROLOGIC:??No numbness or weakness. MUSCULOSKELETAL:??No swelling or pain. PSYCHIATRIC:??No depression. LYMPH:??No swelling. Review of systems otherwise as stated in HPI Physical Exam Vitals & Measurements T:??36.5?C ??(Temporal Artery)?? HR:??74??(Peripheral)?? RR:??17?? BP:??137/81?? SpO2:??100%?? HT:??167.640??cm?? WT:??91.63??kg?? BMI:??33.000?? Pain Score:??6?? O2 Therapy:??Room air?? General: ??AAOx3. ??GCS15. ??No acute distress, answering questions appropriately. Head: ??Atraumatic; Normocephalic Eye: ??PERRLA; EOMI; no scleral icterus / pallor ENT: moist mucous membranes; no epistaxis. No stridor. Neck: ??Active ROM intact; Trachea Midline. ??No JVD. ??No meningismus appreciated. Skin: Warm, dry Chest: ??Equal BS bilaterally. ??Clear to auscultation bilaterally. Heart: RRR; no murmur, rub, or gallop Abdomen: ??Soft, right lower quadrant tenderness to palpation with guarding, non-distended, no?? rebound, or rigidity. No Hepatosplenomegaly Musculoskeletal: ??ROM intact of all extremities/joints without discomfort. ??Sensation grossly intact throughout. ??No obvious deformity. ??Strength Intact 5/5 throughout. ?? Neuro: Alert and oriented. Answering questions appropriately with clear speech. Motor and sensory grossly normal in all extremities.?? Medical Decision Making: Patient is a 22-year-old female presents today for evaluation of right lower quadrant pain. ??On dam she is tender in the right lower quadrant with some guarding present.?? She arrived afebrile??withnormal vital signs.?? Patient had??lab work which showed an elevated white blood cell count 19 but the rest the CBC was unremarkable.?? CMP was unremarkable.?? test was negative and urinalysis shows no infection.?? CT scan shows early acute appendicitis.?? Patient received morphine for pain control.?? I then spoke with Dr Celestin??who??admit the patient for further management. Procedure No Qualifying Data Assessment/Plan 1.??Acute appendicitis??K35.80 Problem List/Past Medical History Ongoing No qualifying data Historical No qualifying data Medication Administration Given Sodium Chloride 0.9%, 1000 mL, Hydration Bolus morphine, 4 mg, IV Push morphine, 4 mg, IV Push ondansetron, 4 mg, IV Push Allergies No Known Allergies Social History Alcohol Current, Beer, Wine, Liquor, 1-2 times per month Electronic Cigarette/Vaping Electronic Cigarette Use: Never. Tobacco Never tobacco user Tobacco Use:. Diagnostic Results CT Abdomen and Pelvis w/ Contrast 06/07/2022 01:[address] Abdomen and Pelvis w/ Contrast ?? 06/07/22 00:48:07 PROCEDURE INFORMATION: Exam: CT Abdomen And Pelvis With Contrast Exam date and time: 06/07/2022 12:48 AM Age: 22 years old Clinical indication: RLQ abdominal pain ?? TECHNIQUE: Imaging protocol: Computed tomography of the abdomen and pelvis with contrast. Radiation optimization: All CT scans at this facility use at least one of these dose optimization techniques: automated exposure control; mA and/or kV adjustment per patient size (includes targeted exams where dose is matched to clinical indication); or iterative reconstruction. Contrast material: ISOVUE 300; Contrast volume: 100 ml; Contrast route: INTRAVENOUS (IV); ?? REPORTING DATA: Count of CT and Cardiac NM exams in prior 12 months: This patient has received 0 known CTs and 0 known cardiac nuclear medicine studies in the 12 months prior to the current study. ?? COMPARISON: No relevant prior studies available. ?? FINDINGS: Lungs: No acute infiltrate in either lung base. ?? Liver: Normal. No mass. Gallbladder and bile ducts: Normal. No calcified stones. No ductal dilation. Pancreas: Normal. No ductal dilation. Spleen: Normal. No splenomegaly. Adrenal glands: Normal. No mass. Kidneys and ureters: No hydronephrosis. No calcified renal or ureteral stones. No perinephric stranding or perinephric fluid. Stomach and bowel: Unremarkable. No obstruction. No mucosal thickening. Appendix: Fluid-filled dilated appendix measuring up to 9-10 mm in caliber with multiple small internal appendicoliths or debris. Trace periappendiceal stranding. No associated perforation or abscess. Intraperitoneal space: No intraperitoneal free air. Small amount of free fluid in the dependent portion of the pelvis. Vasculature: Unremarkable. No abdominal aortic aneurysm. Lymph nodes: No enlarged lymph nodes. Urinary bladder: Unremarkable as visualized. Reproductive: Unremarkable as visualized. Bones/joints: Unremarkable. No acute fracture. Soft tissues: Small fat-containing umbilical hernia. ?? IMPRESSION: EARLY ACUTE APPENDICITIS: Fluid-filled dilated appendix measuring up to 9-10 mm in caliber with multiple small internal appendicoliths or debris. Trace periappendiceal stranding. No associated perforation or abscess. ? THIS DOCUMENT HAS BEEN ELECTRONICALLY SIGNED BY DM MCCORMACK MD on 06/07/2022 01:49 AM ?? Signed By: Dm Mccormack MD ?? 06/07/22 00:48:07 ADDENDUM THIS REPORT CONTAINS FINDINGS THAT MAY BE CRITICAL TO PATIENT CARE. The findings were verbally communicated via telephone conference with Summer Jefferson at 1:52 AM EDT on 06/07/2022. The findings were acknowledged and understood. ? THIS DOCUMENT HAS BEEN ELECTRONICALLY SIGNED BY DM MCCORMACK MD on 06/07/2022 01:52 AM ?? Signed By: Dm Mccormack MD Lab Results CBC and Differential?? LATEST RESULTS?? WBC?? 06/07/22 00:01?? 19.2 ??High?? RBC?? 06/07/22 00:01?? 4.81?? Hgb?? 06/07/22 00:01?? 13.7?? Hct?? 06/07/22 00:01?? 41.9?? MCV?? 06/07/22 00:01?? 87.1?? MCH?? 06/07/22 00:01?? 28.5?? MCHC?? 06/07/22 00:01?? 32.7?? RDW-CV?? 06/07/22 00:01?? 12.4?? Platelets?? 06/07/22 00:01?? 376?? MPV?? 06/07/22 00:01?? 9.5?? Neutro Auto?? 06/07/22 00:01?? 84.5 ??High?? Lymph Auto?? 06/07/22 00:01?? 8.0 ??Low?? Foster Auto?? 06/07/22 00:01?? 6.7?? Eos, Auto?? 06/07/22 00:01?? 0.10?? Basophil Auto?? 06/07/22 00:01?? 0.3?? Imm Gran Auto?? 06/07/22 00:01?? 0.4?? Neutro Absolute?? 06/07/22 00:01?? 16.2 ??High?? Lymph Absolute?? 06/07/22 00:01?? 1.5?? Foster Absolute?? 06/07/22 00:01?? 1.3 ??High?? Eos Absolute?? 06/07/22 00:01?? 0.0?? Baso Absolute?? 06/07/22 00:01?? 0.1?? Imm Gran Absolute?? 06/07/22 00:01?? 0.08? Routine Chemistry?? LATEST RESULTS?? Sodium Level?? 06/07/22 00:01?? 137?? Potassium Level?? 06/07/22 00:01?? 4.0?? Chloride Level?? 06/07/22 00:01?? 104?? CO2?? 06/07/22 00:01?? 23?? Alk Phos?? 06/07/22 00:01?? 65?? AST?? 06/07/22 00:01?? 21?? ALT?? 06/07/22 00:01?? 23?? BUN?? 06/07/22 00:01?? 13?? Glucose Level?? 06/07/22 00:01?? 132 ??High?? Creatinine Level?? 06/07/22 00:01?? 0.55?? BUN/Creat Ratio?? 06/07/22 00:01?? 23.6 ??High?? Calcium Level?? 06/07/22 00:01?? 9.3?? Protein Total?? 06/07/22 00:01?? 7.3?? Albumin Level?? 06/07/22 00:01?? 4.4?? Globulin?? 06/07/22 00:01?? 2.9?? A/G Ratio?? 06/07/22 00:01?? 1.5?? Bilirubin Total?? 06/07/22 00:01?? 0.8?? Anion Gap?? 06/07/22 00:01?? 10.0?? Osmolality?? 06/07/22 00:01?? 276?? eGFR CKD-EPI?? 06/07/22 00:01?? 132? Testing?? LATEST RESULTS?? hCG Qual Serum?? 06/07/22 00:01?? Negative? UA Macroscopic?? LATEST RESULTS?? Urine Srce?? 06/07/22 00:25?? Clean Catch?? UA Color?? 06/07/22 00:25?? Yellow?? UA Appear?? 06/07/22 00:25?? Slightly Cloudy Abnormal?? UA Glucose?? 06/07/22 00:25?? Negative?? UA Bili?? 06/07/22 00:25?? Negative?? UA Ketones?? 06/07/22 00:25?? >=80?? UA Spec Grav?? 06/07/22 00:25?? 1.020?? UA Blood?? 06/07/22 00:25?? Negative?? UA pH?? 06/07/22 00:25?? 7.00?? UA Protein?? 06/07/22 00:25?? Negative?? UA Urobilinogen?? 06/07/22 00:25?? 0.2?? UA Nitrite?? 06/07/22 00:25?? Negative?? UA Leuk Est?? 06/07/22 00:25?? Negative? Electronically Signed on 06/07/22 08:30 AM Summer Jefferson MD History and physical note * Gil Celestin MD: PERFORM Event Display: History and Physical Authored Date: [id number] STACY HUNTER :2000 Age:22 years Sex:Female Visit Date:06/06/2022 Primary Care Physician: MIQUEL SILVERMAN Chief Complaint RLQ abd'l pain History of Present Illness Stacy Hunter is a 22-year-old woman who presented to the emergency department overnight with??right lower quadrant abdominal pain, nausea, and vomiting.?? Stacy reports that she was in her usual state of health prior to the onset of right lower quadrant abdominal pain??yesterday??around noon.?? She had associated nausea and vomiting. ??Her pain progressed over the course of the day. ??She presented to the emergency department that evening. ??She had??no fevers or chills. ??She denies constipation or diarrhea.?? She has not had pain like this before.?? In the ED, she was evaluated??and found to have leukocytosis and CT evidence of acute appendicitis ?? As described below. ??General surgery was consulted. ??She was admitted and started on antibiotics. ??This a.m., she reports??persistent7 out of 10 right lower quadrant abdominal pain. ??She denies nausea??or fevers.?? She has no personal or family history of inflammatory bowel disease.?? Her only prior??surgical intervention was wisdom teeth removal. ??She denies bleeding or anesthesia complications at the time of that operation. Review of Systems A 10 point review of systems was completed. ??Notable findings are documented above. Physical Exam Vitals & Measurements T:??37.0?C ??(Temporal Artery)?? TMIN:??36.5?C ??(Temporal Artery)?? TMAX:??37.0?C ??(Temporal Artery)?? HR:??102??(Peripheral)?? RR:??18?? BP:??122/73?? SpO2:??95%?? HT:??167.640??cm?? WT:??92.700??kg?? BMI:??32.990?? Pain Score:??3?? O2 Therapy:??Room air?? General: No acute distress, pleasant, conversant CV: RRR Pulmonary: Regular breathing rate and effort Abdomen: Soft, nondistended,??tender to palpation of the right lower quadrant??without rebound painor involuntary guarding Neuro: Grossly intact Skin: Warm, well-perfused,??no rash Extremities: No edema Assessment/Plan 1.??Acute appendicitis??K35.80 Stacy Hunter is a 22-year-old woman??who presents with ~1 day of??right lower quadrant abdominal pain, nausea, and vomiting. ??She has??leukocytosis and CT evidence of acute appendicitis. ??The nature of appendicitis??and the options for management including nonoperative and laparoscopic appendectomy??were reviewed. ??Recommend laparoscopic appendectomy. ??The risk, benefits, and alternatives tothis operation were discussed in detail. ??The expected postoperative recovery including activity restrictions, return to work, postoperative pain control were outlined.?? Stacy demonstrated good un derstanding and agreement. ??He also will be admitted for observation. ??Timing of??appendectomy will depend on or availability. ??We will treat her with antibiotics, pain control, bowel rest, and fluid resuscitation in the interim. Ordered: [facility]SO Place in Observation, Observation, Observation, Gil Celestin MD, 06/07/22 2:02:00 EDT, 06/07/22 2:02:00 EDT, 06/07/22 2:02:00 EDT, 1 midnight or less ?? Orders: acetaminophen, 1,000 mg = 100 mL, IV Piggyback, Injection, every 6 hr (mesha), PRN pain, mild, Administer over: 0.3 hr, First Dose: 06/07/22 2:07:00 EDT, Routine, 333.33 mL/hr HYDROmorphone, 0.5 mg = 0.25 mL, IV Push, Injection, every 2 hr, PRN pain, severe, First Dose: 06/07/22 2:07:00 EDT, Routine ketorolac, 15 mg = 1 mL, IV Push, Vial, every 6 hr, PRN other (see comment), First Dose: 06/07/22 2:07:00 EDT, Routine Lactated Ringers Injection 1,000 mL, Total Volume (mL): 1,000, 1,000 mL, Soln- IV, IV, 100 mL/hr, Start Date: 06/07/22 2:07:00 EDT, 91.63 kg, Populate Charting Weight From Order, 2.07, m2 naloxone, 0.1 mg = 0.25 mL, IV Push, Injection, every 5 min, PRN other (see comment), First Dose: 06/07/22 2:07:00 EDT, Routine ondansetron, 4 mg = 2 mL, IV Push, Vial, every 6 hr, PRN nausea/vomiting, First Dose: 06/07/22 2:07:00 EDT, Routine ondansetron, 4 mg = 1 tab, Oral, Tab-Dis, every 6 hr, PRN nausea/vomiting, First Dose: 06/07/22 2:07:00 EDT, Routine piperacillin-tazobactam, 3.375 g = 1 vials, IV Piggyback, Injection, every 6 hr, Antibiotic Indication Intraabdominal, Administer over: 30 minutes, First Dose: 06/07/22 3:00:00 EDT, Routine, 200 mL/hr prochlorperazine, 10 mg = 2 tab, Oral, Tab, every 6 hr, PRN nausea/vomiting, First Dose: 06/07/22 2:07:00 EDT, Routine prochlorperazine, 5 mg = 1 mL, IV Push, Vial, every 4 hr, PRN nausea/vomiting, First Dose: :07:00 EDT, Routine prochlorperazine, 25 mg = 1 supp, MI, Supp, every 12 hr, PRN nausea/vomiting, First Dose: 06/07/22 2:07:00 EDT, Routine Diet Order, 06/07/22 2:07:00 EDT, NPO Incentive Spirometry Nursing, 06/07/22 2:07:00 EDT Patient Condition, 06/07/22 2:07:00 EDT, Condition Good/ Stable Resuscitation Status, 06/07/22 2:07:00 EDT, Full Code Sequential Compression Devices (SCD's), 06/07/22 2:07:00 EDT, Constant Order Up ad Jimena, 06/07/22 2:07:00 EDT, Constant Order, at nurse's discretion Vital Signs, 06/07/22 2:07:00 EDT, every 4 hr (mesha) Problem List/Past Medical History Ongoing No qualifying data Historical No qualifying data Medications Inpatient acetaminophen, 1000 mg= 100 mL, IV Piggyback, every 6 hr (mesha), PRN HYDROmorphone, 0.5 mg= 0.25 mL, IV Push, every 2 hr, PRN ketorolac, 15 mg= 1 mL, IV Push, every 6 hr, PRN Lactated Ringers Injection 1,000 mL, 1000 mL, IV naloxone, 0.1 mg= 0.25 mL, IV Push, every 5 min, PRN ondansetron, 4 mg= 2 mL, IV Push, every 6 hr, PRN ondansetron, 4 mg= 1 tab, Oral, every 6 hr, PRN piperacillin-tazobactam prochlorperazine, 5 mg= 1 mL, IV Push, every 4 hr, PRN prochlorperazine, 10 mg= 2 tab, Oral, every 6 hr, PRN prochlorperazine, 25 mg= 1 supp, MI, every 12 hr, PRN Home No active home medications Allergies No Known Allergies Social History Alcohol Current, Beer, Wine, Liquor, 1-2 times per month Electronic Cigarette/Vaping Electronic Cigarette Use: Never. Tobacco Never tobacco user Tobacco Use:. Lab Results Last 24 Hours?? Chemistry ? Event Name?? Event Result?? Date/Time?? Sodium Level 137 mmol/L 06/07/22 00:01:00 Potassium Level 4 mmol/L 06/07/22 00:01:00 Chloride Level 104 mmol/L 06/07/22 00:01:00 CO2 23 mmol/L 06/07/22 00:01:00 Alk Phos 65 IntlUnit/L 06/07/22 00:01:00 AST 21 IntlUnit/L 06/07/22 00:01:00 ALT 23 IntlUnit/L 06/07/22 00:01:00 BUN 13 mg/dL 06/07/22 00:01:00 Glucose Level 132 mg/dL??High 06/07/22 00:01:00 Creatinine Level 0.55 mg/dL 06/07/22 00:01:00 BUN/Creat Ratio 23.6??High 06/07/22 00:01:00 Calcium Level 9.3 mg/dL 06/07/22 00:01:00 Protein Total 7.3 g/dL 06/07/22 00:01:00 Albumin Level 4.4 g/dL 06/07/22 00:01:00 Globulin 2.9 06/07/22 00:01:00 A/G Ratio 1.5 06/07/22 00:01:00 Bilirubin Total 0.8 mg/dL 06/07/22 00:01:00 Anion Gap 10 06/07/22 00:01:00 Osmolality 276 mOsm/kg 06/07/22 00:01:00 eGFR CKD-EPI 132 mL/min/1.73 m2 06/07/22 00:01:00 hCG Qual Serum Negative 06/07/22 00:01:00 ? Hematology ? Event Name?? Event Result?? Date/Time?? WBC 19.2 K/mcL??High 06/07/22 00:01:00 RBC 4.81 Million/mcL 06/07/22 00:01:00 Hgb 13.7 g/dL 06/07/22 00:01:00 Hct 41.9 % 06/07/22 00:01:00 MCV 87.1 fL 06/07/22 00:01:00 MCH 28.5 pg 06/07/22 00:01:00 MCHC 32.7 g/dL 06/07/22 00:01:00 RDW-CV 12.4 % 06/07/22 00:01:00 Platelets 376 K/mcL 06/07/22 00:01:00 MPV 9.5 fL 06/07/22 00:01:00 Neutro Auto 84.5 %??High 06/07/22 00:01:00 Lymph Auto 8 %??Low 06/07/22 00:01:00 Foster Auto 6.7 % 06/07/22 00:01:00 Eos, Auto 0.1 % 06/07/22 00:01:00 Basophil Auto 0.3 % 06/07/22 00:01:00 Imm Gran Auto 0.4 % 06/07/22 00:01:00 Neutro Absolute 16.2 K/mcL??High 06/07/22 00:01:00 Lymph Absolute 1.5 K/mcL 06/07/22 00:01:00 Foster Absolute 1.3 K/mcL??High 06/07/22 00:01:00 Eos Absolute 0 K/mcL 06/07/22 00:01:00 Baso Absolute 0.1 K/mcL 06/07/22 00:01:00 Imm Gran Absolute 0.08 06/07/22 00:01:00 ? Urinalysis ? Event Name?? Event Result?? Date/Time?? Urine Srce Clean Catch 06/07/22 00:25:00 UA Color YELLOW. 06/07/22 00:25:00 UA Appear SL CLOUDY Abnormal 06/07/22 00:25:00 UA Glucose NEGATIVE 06/07/22 00:25:00 UA Bili NEGATIVE 06/07/22 00:25:00 UA Ketones >=80 06/07/22 00:25:00 UA Spec Grav 1.02 06/07/22 00:25:00 UA Blood NEGATIVE 06/07/22 00:25:00 UA pH 7 06/07/22 00:25:00 UA Protein NEGATIVE 06/07/22 00:25:00 UA Urobilinogen 0.2 06/07/22 00:25:00 UA Nitrite NEGATIVE 06/07/22 00:25:00 UA Leuk Est NEGATIVE 06/07/22 00:25:00 ? All Other Results ? Event Name?? Event Result?? Date/Time?? Employed in healthcare? No 06/07/22 02:10:00 Symptomatic as defined by CDC? No 06/07/22 02:10:00 Hospitalized due to COVID-19? No 06/07/22 02:10:00 In ICU? No 06/07/22 02:10:00 Group care resident? No 06/07/22 02:10:00 status? Not 06/07/22 02:10:00 SARS-CoV-2(Covid19)PCR(GXpert COVFLURSV) Neg-GeneXPert 06/07/22 02:10:00 Flu A (GXpert COVFLURSV) Neg-GeneXPert 06/07/22 02:10:00 Flu B (GXpert COVFLURSV) Neg-GeneXPert 06/07/22 02:10:00 RSV (GXpert COVFLURSV) Neg-GeneXPert 06/07/22 02:10:00 ? Diagnostic Results ?? CT Abdomen and Pelvis w/ Contrast ?? 06/07/22 00:48:07 PROCEDURE INFORMATION: Exam: CT Abdomen And Pelvis With Contrast Exam date and time: 06/07/2022 12:48 AM Age: 22 years old Clinical indication: RLQ abdominal pain ?? TECHNIQUE: Imaging protocol: Computed tomography of the abdomen and pelvis with contrast. Radiation optimization: All CT scans at this facility use at least one of these dose optimization techniques: automated exposure control; mA and/or kV adjustment per patient size (includes targeted exams where dose is matched to clinical indication); or iterative reconstruction. Contrast material: ISOVUE 300; Contrast volume: 100 ml; Contrast route: INTRAVENOUS (IV); ?? REPORTING DATA: Count of CT and Cardiac NM exams in prior 12 months: This patient has received 0 known CTs and 0 known cardiac nuclear medicine studies in the 12 months prior to the current study. ?? COMPARISON: No relevant prior studies available. ?? FINDINGS: Lungs: No acute infiltrate in either lung base. ?? Liver: Normal. No mass. Gallbladder and bile ducts: Normal. No calcified stones. No ductal dilation. Pancreas: Normal. No ductal dilation. Spleen: Normal. No splenomegaly. Adrenal glands: Normal. No mass. Kidneys and ureters: No hydronephrosis. No calcified renal or ureteral stones. No perinephric stranding or perinephric fluid. Stomach and bowel: Unremarkable. No obstruction. No mucosal thickening. Appendix: Fluid-filled dilated appendix measuring up to 9-10 mm in caliber with multiple small internal appendicoliths or debris. Trace periappendiceal stranding. No associated perforation or abscess. Intraperitoneal space: No intraperitoneal free air. Small amount of free fluid in the dependent portion of the pelvis. Vasculature: Unremarkable. No abdominal aortic aneurysm. Lymph nodes: No enlarged lymph nodes. Urinary bladder: Unremarkable as visualized. Reproductive: Unremarkable as visualized. Bones/joints: Unremarkable. No acute fracture. Soft tissues: Small fat-containing umbilical hernia. ?? IMPRESSION: EARLY ACUTE APPENDICITIS: Fluid-filled dilated appendix measuring up to 9-10 mm in caliber with multiple small internal appendicoliths or debris. Trace periappendiceal stranding. No associated perforation or abscess. ? THIS DOCUMENT HAS BEEN ELECTRONICALLY SIGNED BY DM MCCORMACK MD on 06/07/2022 01:49 AM ?? Signed By: Dm Mccormack MD ?? 06/07/22 00:48:07 ADDENDUM THIS REPORT CONTAINS FINDINGS THAT MAY BE CRITICAL TO PATIENT CARE. The findings were verbally communicated via telephone conference with Summer Jefferson at 1:52 AM EDT on 06/07/2022. The findings were acknowledged and understood. ?? THIS DOCUMENT HAS BEEN ELECTRONICALLY SIGNED BY DM MCCORMACK MD on 06/07/2022 01:52 AM ?? Signed By: Dm Mccormack MD ? Electronically Signed on 06/07/22 07:35 AM Gil Celestin MD Discharge summary * Gil Celestin MD: PERFORM Event Display: Discharge Summary Authored Date: [id number] STACY HUNTER :2000 Age:22 years Sex:Female Visit Date:06/06/2022 Primary Care Physician: MIQUEL SILVERMAN Admission Information Stacy Hunter is a 22-year-old woman who presented to the emergency department overnight with??right lower quadrant abdominal pain, nausea, and vomiting.?? Stacy reports that she was in her usual state of health prior to the onset of right lower quadrant abdominal pain??yesterday??around noon.?? She had associated nausea and vomiting. ??Her pain progressed over the course of the day. ??She presented to the emergency department that evening. ??She had??no fevers or chills. ??She denies constipation or diarrhea.?? She has not had pain like this before.?? In the ED, she was evaluated??and found to have leukocytosis and CT evidence of acute appendicitis ?? As described below. ??General surgery was consulted. ??She was admitted and started on antibiotics. ??This a.m., she reports??persistent7 out of 10 right lower quadrant abdominal pain. ??She denies nausea??or fevers.?? She has no personal or family history of inflammatory bowel disease.?? Her only prior??surgical intervention was wisdom teeth removal. ??She denies bleeding or anesthesia complications at the time of that operation. [1] Hospital Course Stacy was admitted??to the med/surg floor for observation.?? She was treated with IV fluids, Zosyn, and pain medications. ??We discussed options for management of acute appendicitis.?? She elected proceed with laparoscopic appendectomy. ??She was taken to the operating room later that??a.m. for??an uncomplicated laparoscopic appendectomy.?? She did well postoperatively and was deemed appropriate for discharge to home. Significant Findings Inflamed appendix??without evidence of perforation or??necrosis Procedures and Treatment Provided Laparoscopic appendectomy??06/07/2022 Physical Exam Vitals & Measurements T:??37.8?C ??(Temporal Artery)?? TMIN:??36.5?C ??(Temporal Artery)?? TMAX:??37.8?C ??(Temporal Artery)?? HR:??76??(Peripheral)?? RR:??15?? BP:??124/77?? SpO2:??94%?? HT:??167.640??cm?? WT:??92.700??kg?? BMI:??32.990?? Pain Score:??4?? O2 Therapy:??Room air?? General: No acute distress, pleasant, conversant CV: RRR Pulmonary: Regular breathing rate and effort Abdomen: Soft, appropriately tender,??laparoscopic incisions C/D/I Medications Inpatient acetaminophen, 1000 mg= 100 mL, IV Piggyback, every 6 hr ([facility]), PRN fentaNYL, 25 mcg= 0.5 mL, IV Push, every 5 min, PRN HYDROmorphone, 0.5 mg= 0.25 mL, IV Push, every 2 hr, PRN HYDROmorphone, 0.25 mg= 0.13 mL, IV Push, every 5 min, PRN ketorolac, 15 mg= 1 mL, IV Push, every 6 hr, PRN Lactated Ringers Injection 1,000 mL, 1000 mL, IV naloxone, 0.1 mg= 0.25 mL, IV Push, every 5 min, PRN ondansetron, 4 mg= 2 mL, IV Push, every 6 hr, PRN ondansetron, 4 mg= 1 tab, Oral, every 6 hr, PRN ondansetron, 4 mg= 2 mL, IV Push, every 1 hr, PRN oxyCODONE 5 mg oral tablet, 5 mg= 1 tab, Oral, every 6 hr, PRN prochlorperazine, 5 mg= 1 mL, IV Push, every 4 hr, PRN prochlorperazine, 10 mg= 2 tab, Oral, every 6 hr, PRN prochlorperazine, 25 mg= 1 supp, MI, every 12 hr, PRN Home oxyCODONE 5 mg oral tablet, 5 mg= 1 tab, Oral, every 6 hr, PRN Procedure/Surgical History ???Appendectomy Laparoscopy (06/07/2022) Social History Alcohol Current, Beer, Wine, Liquor, 1-2 times per month Electronic Cigarette/Vaping Electronic Cigarette Use: Never. Tobacco Never tobacco user Tobacco Use:. Diagnostic Results X-Ray:?? Computed Tomography: ?? CT Abdomen and Pelvis w/ Contrast ?? 06/07/22 00:48:07 PROCEDURE INFORMATION: Exam: CT Abdomen And Pelvis With Contrast Exam date and time: 06/07/2022 12:48 AM Age: 22 years old Clinical indication: RLQ abdominal pain ?? TECHNIQUE: Imaging protocol: Computed tomography of the abdomen and pelvis with contrast. Radiation optimization: All CT scans at this facility use at least one of these dose optimization techniques: automated exposure control; mA and/or kV adjustment per patient size (includes targeted exams where dose is matched to clinical indication); or iterative reconstruction. Contrast material: ISOVUE 300; Contrast volume: 100 ml; Contrast route: INTRAVENOUS (IV); ?? REPORTING DATA: Count of CT and Cardiac NM exams in prior 12 months: This patient has received 0 known CTs and 0 known cardiac nuclear medicine studies in the 12 months prior to the current study. ?? COMPARISON: No relevant prior studies available. ?? FINDINGS: Lungs: No acute infiltrate in either lung base. ?? Liver: Normal. No mass. Gallbladder and bile ducts: Normal. No calcified stones. No ductal dilation. Pancreas: Normal. No ductal dilation. Spleen: Normal. No splenomegaly. Adrenal glands: Normal. No mass. Kidneys and ureters: No hydronephrosis. No calcified renal or ureteral stones. No perinephric stranding or perinephric fluid. Stomach and bowel: Unremarkable. No obstruction. No mucosal thickening. Appendix: Fluid-filled dilated appendix measuring up to 9-10 mm in caliber with multiple small internal appendicoliths or debris. Trace periappendiceal stranding. No associated perforation or abscess. Intraperitoneal space: No intraperitoneal free air. Small amount of free fluid in the dependent portion of the pelvis. Vasculature: Unremarkable. No abdominal aortic aneurysm. Lymph nodes: No enlarged lymph nodes. Urinary bladder: Unremarkable as visualized. Reproductive: Unremarkable as visualized. Bones/joints: Unremarkable. No acute fracture. Soft tissues: Small fat-containing umbilical hernia. ?? IMPRESSION: EARLY ACUTE APPENDICITIS: Fluid-filled dilated appendix measuring up to 9-10 mm in caliber with multiple small internal appendicoliths or debris. Trace periappendiceal stranding. No associated perforation or abscess. ? THIS DOCUMENT HAS BEEN ELECTRONICALLY SIGNED BY DM MCCORMACK MD on 06/07/2022 01:49 AM ?? Signed By: Dm Mccormack MD ?? 06/07/22 00:48:07 ADDENDUM THIS REPORT CONTAINS FINDINGS THAT MAY BE CRITICAL TO PATIENT CARE. The findings were verbally communicated via telephone conference with Summer Jefferson at 1:52 AM EDT on 06/07/2022. The findings were acknowledged and understood. ? THIS DOCUMENT HAS BEEN ELECTRONICALLY SIGNED BY DM MCCORMACK MD on 06/07/2022 01:52 AM ?? Signed By: Dm Mccormack MD ? Discharge Plan Discharged home with self-care. ??Follow-up in 4 weeks with??general surgery. 1.??Acute appendicitis??K35.80 Stacy Hunter is a 22-year-old woman??who presented with 24 hours of right upper quadrant abdominalpain, nausea, and vomiting. ??She was found to have??acute appendicitis??on CT abdomen/pelvis. ??She was taken to the operating room??on the morning of??hospital day #1.?? Following an uncomplicated laparoscopic appendectomy she was deemed appropriate for discharge to home. Ordered: PSO Place in Observation, Observation, Observation, Gil Celestin MD, 06/07/22 2:02:00 EDT, 06/07/22 2:02:00 EDT, 06/07/22 2:02:00 EDT, 1 midnight or less ?? Orders: acetaminophen, 1,000 mg = 100 mL, IV Piggyback, Injection, every 6 hr (mesha), PRN pain, mild, Administer over: 0.3 hr, First Dose: 06/07/22 2:07:00 EDT, Routine, 333.33 mL/hr HYDROmorphone, 0.5 mg = 0.25 mL, IV Push, Injection, every 2 hr, PRN pain, severe, First Dose: 06/07/22 2:07:00 EDT, Routine ketorolac, 15 mg = 1 mL, IV Push, Vial, every 6 hr, PRN other (see comment), First Dose: 06/07/22 2:07:00 EDT, Routine Lactated Ringers Injection 1,000 mL, Total Volume (mL): 1,000, 1,000 mL, Soln- IV, IV, 100 mL/hr, Start Date: 06/07/22 2:07:00 EDT, 91.63 kg, Populate Charting Weight From Order, 2.07, m2 naloxone, 0.1 mg = 0.25 mL, IV Push, Injection, every 5 min, PRN other (see comment), First Dose: 06/07/22 2:07:00 EDT, Routine ondansetron, 4 mg = 2 mL, IV Push, Vial, every 6 hr, PRN nausea/vomiting, First Dose: 06/07/22 2:07:00 EDT, Routine ondansetron, 4 mg = 1 tab, Oral, Tab-Dis, every 6 hr, PRN nausea/vomiting, First Dose: 06/07/22 2:07:00 EDT, Routine oxyCODONE 5 mg oral tablet, 5 mg = 1 tab, Oral, Tab, every 6 hr, PRN pain, First Dose: 06/07/22 12:29:00 EDT, Routine oxyCODONE 5 mg oral tablet, 5 mg = 1 tab, Oral, every 6 hr, PRN pain, breakthrough, X 3 days, # 5 tab, 0 Refill(s), 06/10/22 13:20:00 EDT, Pharmacy: [facility], 167.64, cm, 06/07/22 4:14:00 EDT, Height/Length Dosing, 92.7, kg, 06/07/22 4:14:00 EDT, Weight Dosing prochlorperazine, 10 mg = 2 tab, Oral, Tab, every 6 hr, PRN nausea/vomiting, First Dose: 06/07/22 2:07:00 EDT, Routine prochlorperazine, 5 mg = 1 mL, IV Push, Vial, every 4 hr, PRN nausea/vomiting, First Dose: :07:00 EDT, Routine prochlorperazine, 25 mg = 1 supp, MI, Supp, every 12 hr, PRN nausea/vomiting, First Dose: 06/07/22 2:07:00 EDT, Routine Activity as Tolerated, 06/07/22 12:31:00 EDT, Constant Order Diet Order, 06/07/22 12:28:00 EDT, Regular, Advance as tolerated Discharge Disposition, 06/07/22 13:20:00 EDT, Home Independently Discharge Patient, 06/07/22 13:20:00 EDT Discharge Patient Instructions, Lift restrictions of 10 pounds until follow-up appointment Discharge Patient Instructions, Apply ice pack for 20 minutes on and 20 minutes off for first several days Discharge Patient Instructions, No bathing, soaking, or swimming for 10 days Incentive Spirometry Nursing, 06/07/22 2:07:00 EDT Patient Condition, 06/07/22 2:07:00 EDT, Condition Good/ Stable Peripheral IV Discontinue, 06/07/22 12:31:00 EDT, With good oral intake Resuscitation Status, 06/07/22 2:07:00 EDT, Full Code Sequential Compression Devices (SCD's), 06/07/22 2:07:00 EDT, Constant Order Up ad Jimena, 06/07/22 2:07:00 EDT, Constant Order, at nurse's discretion Vital Signs, 06/07/22 2:07:00 EDT, every 4 hr (mesha) Vital Signs, 06/07/22 12:31:00 EDT, Stop date 06/07/22 12:31:00 EDT, per postprocedure PACU level of care All Diagnoses This Visit Acute appendicitis Patient Discharge Condition Stable Discharge Disposition Home independently Patient Instructions Plan to rest and relax today after your procedure/operation. Even after minor surgery you may feel drowsy or tired for several hours. You may also have a sore throat and muscle aches.??DO NOT??drink alcohol after anesthesia or while taking pain medications. You should not drive any vehicle or operate machinery until your doctor says it???s safe.??DO NOT??make any major decisions, sign contracts, etc. for 24 hours. ?? Activity: ?Rest today, tomorrow resume your usual activity. ?Lift no more than 10 pounds until your follow up appointment. Diet: ?Advance to a regular diet. Medications: ?Continue your regular medications ?Prescription given to patient:??oxycodone 5 mg every 6 hours as needed for pain not controlled with Tylenol and ibuprofen ?Last dose of pain ??medication given at hospital: ?Over the counter medications: Tylenol and/or Ibuprofen every 6 hours when needed for pain ?Last dose of over the counter medication given at the hospital: Dressing: ?Your incisions are closed with glue (derma whitten) DO NOT pick or scrub at it. ?Apply ice pack over dressing site for 20 mins on/20 mins off for the first several days. Special Instructions: ?You may take a shower after 48 hours. ?No bathing, soaking or swimming for 2 weeks. ?You may drive after ALL pain medications are stopped. ?? YOU SHOULD CALL YOUR DOCTOR??AT ??FOR ANY OF THE FOLLOWING ?Fever of 101 or higher. ?Pain that does not lessen with the pain medication prescribed. ?Cloudy or foul smelling drainage from the incision. ?Redness, warmth and firmness around the incision. ?Increased numbness or tingling. ?Bleeding or continuous oozing that saturates the bandage and does not stop after applying pressure to incision for 20 minutes. ?Increased swelling of fingers or toes, or severe tightness of bandage not relieved with elevation of limb above the level of your heart. ?Pale blue or cold fingers/toes or nail beds as compared with the opposite side. ?? IF UNABLE TO REACH YOUR DOCTOR GO TO YOUR NEAREST EMERGENCY ROOM ?? Recommended Treatments for Opioid Induced Constipation ?? Dosage Schedule Drug Brand Names Dose Daily Senna-docusate 8.5-5mg per tablet Senokot 2 tablets by mouth 2 times per day (Hold for loose stool) As Needed Magnesium Hydroxide Milk of Magnesia 30mL by mouth 2 times per day as needed As Needed Polyethylene Glycol Miralax 17 grams dissolved in 8 ounces of water, juice or tea once daily as needed As Needed Bisacodyl?? Dulcolax 10mg by mouth once a day as needed for constipation As Needed Phosphate enema Fleet enema 120mL rectally once a day as needed for constipation As Needed Magnesium citrate ?? 150 to 300 mL (1.745g/30mL solution) by mouth once a day as needed for constipation ? Patient/Responsible libertarian signature:? Date/Time: ? RN signature: ? Date/Time: ?? This document was electronically generated via computerized provider telephone order clerk room service (CPOE) by the ordering physician,??Gil Celestin MD Patient Education Laparoscopic Appendectomy, Adult, Care After Follow Up With When Contact Information Gil Celestin MD 07/04/2022 09:00 AM EDT [facility] [address] [place], [place] [id number]- Additional Instructions: Medication Reconciliation New Prescription oxyCODONE (oxyCODONE 5 mg oral tablet)1 tab Oral (given by mouth) every 6 hours as needed pain, breakthrough for 3 Days. Refills: 0. [1]??H & P; Gil Celestin MD 06/07/2022 07:35 EDT Electronically Signed on 06/07/22 01:26 PM Gil Celestin MD CT Abdomen and Pelvis W contrast IV * Dm Mccormack MD: VERIFY, MODIFY Event Display: Addendum ADDENDUM THIS REPORT CONTAINS FINDINGS THAT MAY BE CRITICAL TO PATIENT CARE. The findings were verbally communicated via telephone conference with Summer Jefferson at 1:52 AM EDT on 06/07/2022. The findings were acknowledged and understood. THIS DOCUMENT HAS BEEN ELECTRONICALLY SIGNED BY DM MCCORMACK MD on 06/07/2022 01:52 AM Final Signed by: Dm Mccormack MD Signed (Electronic Signature): 06/07/2022 1:52 am Note * Dm Mccormack MD: VERIFY, VERIFY Event Display: Report PROCEDURE INFORMATION: Exam: CT Abdomen And Pelvis With Contrast Exam date and time: 06/07/2022 12:48 AM Age: 22 years old Clinical indication: RLQ abdominal pain TECHNIQUE: Imaging protocol: Computed tomography of the abdomen and pelvis with contrast. Radiation optimization: All CT scans at this facility use at least one of these dose optimization techniques: automated exposure control; mA and/or kV adjustment per patient size (includes targeted exams where dose is matched to clinical indication); or iterative reconstruction. Contrast material: ISOVUE 300; Contrast volume: 100 ml; Contrast route: INTRAVENOUS (IV); REPORTING DATA: Count of CT and Cardiac NM exams in prior 12 months: This patient has received 0 known CTs and 0 known cardiac nuclear medicine studies in the 12 months prior to the current study. COMPARISON: No relevant prior studies available. FINDINGS: Lungs: No acute infiltrate in either lung base. Liver: Normal. No mass. Gallbladder and bile ducts: Normal. No calcified stones. No ductal dilation. Pancreas: Normal. No ductal dilation. Spleen: Normal. No splenomegaly. Adrenal glands: Normal. No mass. Kidneys and ureters: No hydronephrosis. No calcified renal or ureteral stones. No perinephric stranding or perinephric fluid. Stomach and bowel: Unremarkable. No obstruction. No mucosal thickening. Appendix: Fluid-filled dilated appendix measuring up to 9-10 mm in caliber with multiple small internal appendicoliths or debris. Trace periappendiceal stranding. No associated perforation or abscess. Intraperitoneal space: No intraperitoneal free air. Small amount of free fluid in the dependent portion of the pelvis. Vasculature: Unremarkable. No abdominal aortic aneurysm. Lymph nodes: No enlarged lymph nodes. Urinary bladder: Unremarkable as visualized. Reproductive: Unremarkable as visualized. Bones/joints: Unremarkable. No acute fracture. Soft tissues: Small fat-containing umbilical hernia. IMPRESSION: EARLY ACUTE APPENDICITIS: Fluid-filled dilated appendix measuring up to 9-10 mm in caliber with multiple small internal appendicoliths or debris. Trace periappendiceal stranding. No associated perforation or abscess. THIS DOCUMENT HAS BEEN ELECTRONICALLY SIGNED BY DM MCCORMACK MD on 06/07/2022 01:49 AM Final Signed by: Dm Mccormack MD Signed (Electronic Signature): 06/07/2022 1:49 am Patient Care team information Care Team Personnel Name: MIQUEL SILVERMAN Position: No Access Member Role: Primary Care Physician Address: Address: [address] [address]- Name: Summer Jefferson MD Position: Physician Member Role: ED Physician Address: Address: [address] [place] [address]- Name: Mariah Valiente Position: Nurse Member Role: ED Nurse
--- OUTSIDE RECORDS SUMMARY | 2024-02-09 01:49 | XMS_ITS | Continuity of Care Document ---
Author Organization [facility] Amb[facility] Address [address] [place] [address] Care Team Providers Care Senior Examiner Name Role Phone MIQUEL SILVERMAN Primary Care Physician Encounter [facility] NBR [id number] Date(s): 04/08/23 - 04/08/23 [facility] [address] [place] [address] us Encounter Diagnosis Otalgia of left ear(Discharge Diagnosis) - 04/08/23 Discharge Disposition: Home or Self Care Attending Physician: CRISTINA Dhaliwal Admitting Physician: CRISTINA Dhaliwal Allergies, Adverse Reactions, Alerts No Known Allergies Medications No Known Medications Problem List No Known Problems Procedures Procedure Date Related Diagnosis Body Site Status Appendectomy Laparoscopy 1 06/07/22 Completed 1auto-populated from documented surgical case Vital Signs Most recent to oldest [Reference Range]: 1 Temperature Tympanic [36.6-38.1 Deg C] 3 6.6 Deg C (04/08/23 9:37 AM) Peripheral Pulse Rate [60-100 bpm] 77 bp m (04/08/23 9:37 AM) Respiratory Rate [12-24 br/min] 17 br/mi n (04/08/23 9:37 AM) Blood Pressure [90-140/60-90 mmHg] 147/8 0mmHg *HI* (04/08/23 9:37 AM) Mean Arterial Pressure, Cuff [70-110 mmH g] 102 mmHg (04/08/23 9:37 AM) Social History Social History Type Response Tobacco Never tobacco user T obacco Use:. Sex Physician Outpatient Note * CRISTINA Dhaliwal: PERFORM Event Display: Office Clinic Note Physician Authored Date: [id number] MATILDE HUNTER :2000 Age:22 years Sex:Female Visit Date:04/08/2023 Primary Care Physician: MIQUEL SILVERMAN Chief Complaint left ear pain x1 week ago History of Present Illness Complaining of 1 week intermittent??left ear discomfort which she has been more consistent over thepast several days. ??Denies any preceding URI or respiratory complaints. ??Did have exposure to strep but denies any sore throat, difficulty swallowing.?? Denies any swelling. ??No external ear discomfort.?? No history of similar. ??No ear drainage. ??Denies headache, vertigo, vision changes. ??Othe rwise well. Physical Exam Vitals & Measurements T:??36.6?C ??(Tympanic)?? HR:??77??(Peripheral)?? RR:??17?? BP:??147/80?? SpO2:??100%?? Pain Score:??5?? Well-appearing no acute distress head normocephalic atraumatic. ??Ears canals clear TMs normal pearly peacock without redness or bulging. ??No pain on ear range of motion. ??No??canal swelling or redness. ??No lymphadenopathy or mastoid tenderness. ??Throat is clear no erythema exudate or lesions. ??Uvula is midline.?? Neck without any lymphadenopathy. Assessment/Plan 1.??Otalgia of left ear??H92.02 Suspect possible mild fluid left ear causing her discomfort. ??Recommend symptomatic care wytrydnqhexzm-lsf-vrjnyrn decongestants, ibuprofen/Tylenol recheck if worse or not improving over the next several days. Patient Instructions Verbal instructions per patient request Problem List/Past Medical History Ongoing No chronic problems Historical No qualifying data Procedure/Surgical History ???Appendectomy Laparoscopy (06/07/2022) Medications No active medications Allergies No Known Allergies Social History Alcohol Current, Beer, Wine, Liquor, 1-2 times per month Electronic Cigarette/Vaping Electronic Cigarette Use: Never. Substance Use Never Tobacco Never tobacco user Tobacco Use:. Electronically Signed on 04/08/23 09:47 AM Jarret Sherburne, PA Patient Care team information Care Team Personnel Name: MIQUEL SILVERMAN Position: No Access Member Role: Primary Care Physician Address: Address: [address] [address]- Care Team Related Persons Name: JERRI HUNTER Address: Home [address] [place] [address] [place]
--- OUTSIDE RECORDS SUMMARY | 2024-02-09 01:49 | XMS_ITS | Encounter Summary ---
Author Organization [facility] Address [address] [place] [address] Care Team Providers Care Edge Cutting Machine Operator Name Role Phone Whit Avelar Primary Care Provider Encounter Details Date Type Department Care Team (Latest Contact Info) Description 11/12/[address] [facility] Pathology & Laboratory Medicine - [address] [address] Whit Avelar FNP [address] [facility] [address] [place] [phone] Encounter for general adult medical examination without abnormal findings; Encounter for screening for malignant neoplasm of cervix; Encounter for gynecological examination (general) (routine) without abnormal findings Social History Tobacco Use Types Packs/Day Years Used Date Smoking Tobacco: Never Assessed Comments Unknown Sex and Gender Information Value Date Recorded Sex Assigned at Not on file Legal Sex Female 13:07 EDT Gender Identity Not on file Sexual Orientation Not on file documented as of this encounter Plan of Treatment Not on file documented as of this encounter Procedures Procedure Name Priority Date/Time Associated Diagnosis Comments PAP TEST Today 11/11/2020 11:45 EDT Encounter for general adult medical examination without abnormal findings Encounter for screening for malignant neoplasm of cervix Encounter for gynecological examination (general) (routine) without abnormal findings CHLAMYDIA/N. GONORRHOEAE AMPLIFIED NUCLEIC ACID, THINPREP Today 11/11/2020 11:45 EDT documented in this encounter Results * PAP TEST (11/11/2020 11:45 EDT) Specimens A. Cervix and/or Endocervix , ThinPrep Imaging System with Manual Evaluation 11/25/2020 12:22 EDT [facility] Specimen Adequacy Satisfactory for Evaluation - transformation zone component present 11/25/2020 12:22 EDT [facility] General Categorization Negative for intraepithelial lesion or malignancy 11/25/2020 12:22 EDT [facility] Attestation . 11/25/2020 12:22 EDT [facility] at 1222 Clinical History See below 11/26/19 12:22 EDT [facility] Performing Lab [facility] 11/25/2020 12:22 T [facility] Scanned Images 11/25/2020 12:22 EDT [facility] Papanicolaou smear specimen (specimen) CERVIX UTERI STRUCTURE / Unknown 11/11/2020 11:45 EDT 11/13/2020 13:58 EDT us Whit [facility] ORDERABLES Final Resul t Performing Organization Address City/[facility]/ZIP Co de Phone Number [facility] [address] [place] [address] * CHLAMYDIA/N. GONORRHOEAE AMPLIFIED RNA, THINPREP (11/11/2020 11:45 EDT) Neisseria gonorrhoeae Result Negative Negative 11/13/2020 15:15 EDT [facility] Chlamydia trachomatis Result Negative Negative 11/13/2020 15:15 EDT [facility] Papanicolaou smear specimen (specimen) CERVIX UTERI STRUCTURE / Unknown 11/11/2020 11:45 EDT 11/13/2020 7:48 EDT us Whit [facility]CRO[facility] - GENERAL ORDERABLE S Final Result Performing Organization Address City/[facility]/ZIP Co de Phone Number [facility] [address] [place] [address] documented in this encounter Visit Diagnoses Diagnosis Encounter for general adult medical examination without abnormal findings Unspecified general medical examination Encounter for screening for malignant neoplasm of cervix Screening for malignant neoplasm of the cervix Encounter for gynecological examination (general) (routine) without abnormal findings documented in this encounter Care Teams Edge Cutting Machine Operator Relationship Specialty Start Date End Date Whit Avelar FNP [address] [facility] [address] [place] [phone] PCP - General 05/25/22 documented as of this encounter
--- OUTSIDE RECORDS SUMMARY | 2024-02-09 01:49 | XMS_ITS | Referral Summary ---
Author Organization [facility] Address [address] [place] [address] Care Team Providers Care Senior Backup Administrator Name Role Phone Whit Avelar KARY Primary Care Provider [phone] Social History Tobacco Use Types Packs/Day Years Used Date Smoking Tobacco: Never Assessed Comments Unknown Sex and Gender Information Value Date Recorded Sex Assigned at Not on file Legal Sex Female 13:07 EDT Gender Identity Not on file Sexual Orientation Not on file Plan of Treatment Not on file Insurance [facility] Care Teams Senior Backup Administrator Relationship Specialty Start Date End Date Whit Avelar FNP [address] [place] [address] [address] [place] [address] PCP - General 05/25/22
--- OUTSIDE RECORDS SUMMARY | 2024-02-09 01:49 | XMS_ITS | Clinical Summary ---
Author Organization [facility] Address [address] [place] [address] Care Team Providers Care Regional Training Manager Name Role Phone Unavailable Primary Care Provider Unavailabl e Allergies No known active allergies Social History Tobacco Use Types Packs/Day Years Used Date Smoking Tobacco: Never Assessed Comments Unknown Sex and Gender Information Value Date Recorded Sex Assigned at Not on file Legal Sex Female 5:03 PM EDT Gender Identity Not on file Sexual Orientation Not on file Last Filed Vital Signs Vital Sign Reading Time Taken Comments Blood Pressure 134/93 12/18/2018 5:08 PM EDT Pulse 79 12/18/2018 5:08 PM EDT Temperature 37.9 ??C (100.2 ??F) 12/18/2018 5:08 PM E DT Respiratory Rate 18 12/18/2018 5:08 PM EDT Oxygen Saturation 100% 12/18/2018 5:08 PM EDT Inhaled Oxygen Concentration 100% 12/18/2018 5 :08 PM EDT Weight - - Height - - Body Mass Index - - Plan of Treatment Not on file Insurance OTHER COMMERCIAL
--- OUTSIDE RECORDS SUMMARY | 2024-02-09 01:49 | XMS_ITS | Continuity of Care Document ---
Author Organization [facility] Address [address] [place] [phone] Care Team Providers Care Barley Steeper Name Role Phone MIQUEL SILVERMAN Primary Care Physician Encounter [facility] NBR [id number] Date(s): 10/22/23 - 10/22/[address] [address]- Discharge Disposition: Home or Self Care Attending Physician: Rima Rosario PA-C Admitting Physician: Rima Rosairo PA-C Allergies, Adverse Reactions, Alerts No Known Allergies Medications doxycycline hyclate 100 mg oral capsule 100 mg = 1 cap, Oral, BID, # 14 cap, 0 Refill(s), Pharmacy: [id number], 167.64, cm, 10/22/23 13:16:00 EDT, Height, 90.72, kg, 10/22/23 13:19:00 EDT, Weight Dosing Start Date: 10/22/23 Stop Date: 10/29/23 Status: Ordered Tessalon Perles 100 mg oral capsule 100 mg = 1 cap, Oral, TID, PRN as needed for cough, # 21 cap, 0 Refill(s), Pharmacy: [id number], 167.64, cm, 10/22/23 13:16:00 EDT, Height, 90.72, kg, 10/22/23 13:19:00 EDT, Weight Dosing Start Date: 10/22/23 Stop Date: 10/29/23 Status: Ordered Problem List No Known Problems Procedures Procedure Date Related Diagnosis Body Site Status Appendectomy Laparoscopy 1 06/07/22 Completed 1auto-populated from documented surgical case Results Radiology Reports * Exam Date Time Procedure Performing Provider Status 10/22/23 1:42 PM XR Chest 2 Views Gia Brooks; Madyson ( Verified) Notes: (XR Chest 2 Views) Reason For Exam: cough, r/o pna XR Chest 2 Views PROCEDURE INFORMATION: Exam: XR Chest Exam date and time: 10/22/2023 1:52 PM Age: 23 years old Clinical indication: Cough, unspecified; Cough, unspecified; Additional info: Cough, R/O pna TECHNIQUE: Imaging protocol: Radiologic exam of the chest. Views: 2 views. COMPARISON: CT ABD/PELVIS W CONTRAST 06/07/2022 12:48 AM FINDINGS: Lungs: The lungs are symmetric, well expanded and clear. Pleural spaces: There are no pleural effusions. There is no pneumothorax. Heart/Mediastinum: The heart size is normal as are the mediastinal and hilar contours. The pulmonary vessels are normal. Bones/joints: No acute osseous pathology is identified. IMPRESSION: Normal chest x-ray. No radiographic evidence for pneumonia. THIS DOCUMENT HAS BEEN ELECTRONICALLY SIGNED BY SUSAN URBINA MD on 10/22/2023 02:22 PM Final Signed by: Susan Urbina MD Signed (Electronic Signature): 10/22/2023 2:22 pm Social History Social History Type Response Tobacco Never tobacco user T obacco Use:. Sex Patient Care team information Care Team Personnel Name: MIQUEL SILVERMAN Position: No Access Member Role: Primary Care Physician Address: Address: [address] [address]- [place] Care Team Related Persons Name: JERRI HUNTER Address: Home [address] [place] [phone] [facility] Name: JERRI HUNTER Address: Home [address] [place] [phone] [facility]
--- OUTSIDE RECORDS SUMMARY | 2024-02-09 01:49 | XMS_ITS | Encounter Summary ---
Author Organization [facility] Address [address] [place] [address] Care Team Providers Care Property Preservation Specialist Name Role Phone Whit Avelar KARY Primary Care Provider [phone] Encounter Details Date Type Department Care Team (Late st Contact Info) Description 12/05/2020 Lab Requisition [facility] Pathology & Laboratory Medicine - [address] [address] Outr Resulting Lab, Provider Social History Tobacco Use Types Packs/Day Years [...] Procedure Name Priority Date/Time Associated Diagnosis Comments CHLAMYDIA/N. GONORRHOEAE AMPLIFIED NUCLEIC ACID Routine 12/04/2020 13:30 EDT documented in this encounter Results * CHLAMYDIA/N. GONORRHOEAE AMPLIFIED RNA (12/04/2020 13:30 EDT) Neisseria gonorrhoeae Result Negative Negative 12/07/2020 14:06 EDT [facility] Chlamydia trachomatis Result Negative Negative 12/07/2020 14:06 EDT [facility] Swab ENTIRE VAGINA / Unknown 12/04/2020 13:30 EDT 12/06/2020 16:18 EDT us Provider Outr Resulting Lab MICROBIOLOGY - GENER AL ORDERABLES Final Result [facility] [address] [place] [address] documented in this encounter Visit Diagnoses Not on filedocumented in this encounter Care Teams Property Preservation Specialist Relationship Specialty Start Date End Date Whit Avelar FNP [address] [facility] [address] [place] [phone] PCP - General 05/25/22 documented as of this encounter
--- OUTSIDE RECORDS SUMMARY | 2024-02-09 01:49 | XMS_ITS | Continuity of Care Document ---
Author Organization [facility] Ambulatory [facility] Address [address] [place] [address] Care Team Providers Care Packing Checker Name Role Phone MIQUEL SILVERMAN Primary Care Physician [phone] Encounter [facility]BR [id number] Date(s): 07/04/22 - 07/04/22 [facility] Amb[facility] [address] [place] [address] us Encounter Diagnosis S/P laparoscopic appendectomy(Discharge Diagnosis) - 07/04/22 Discharge Disposition: Home or Self Care Attending Physician: Gil eClestin MD Allergies, Adverse Reactions, Alerts No Known Allergies Problem List No Known Problems Procedures Procedure Date Related Diagnosis Body Site Status Appendectomy Laparoscopy 1 06/07/22 Completed 1auto-populated from documented surgical case Social History Social History Type Response Tobacco Never tobacco user T obacco Use:. Sex Physician Outpatient Note * Gil Celestin MD: PERFORM Event Display: Office Clinic Note Physician Authored Date: [id number] STACY HUNTER :2000 Age:22 years Sex:Female Visit Date:07/04/2022 Primary Care Physician: MIQUEL SILVERMAN History of Present Illness Stacy??presents in follow-up approximately 4 weeks s/p??laparoscopic appendectomy for acute appendicitis.?? Stacy reports no ongoing pain. ??She has had no redness or drainage from her incisions.??She denies fevers, chills, nausea, vomiting,??diarrhea, or constipation. ??She has been avoiding heavy lifting as instructed. ??She has had no other changes in her health. Physical Exam General: No acute distress, pleasant, conversant CV: RRR no pulmonary: Regular breathing rate and effort Abdomen:??Nontender Assessment/Plan S/P laparoscopic appendectomy??Z90.49 Stacy Hunter is a 22-year-old woman 4 weeks s/p laparoscopic appendectomy for acute appendicitis. ??She has recovered well postoperatively.?? We reviewed the results of her pathology which demonstrated significant findings consistent with acute appendicitis.?? She may now resume her usual activities without restriction.?? She can call my office anytime with any further questions or concerns. Problem List/Past Medical History Ongoing No chronic problems Historical No qualifying data Procedure/Surgical History ???Appendectomy Laparoscopy (06/07/2022) Medications No active medications Allergies No Known Allergies Social History Alcohol Current, Beer, Wine, Liquor, 1-2 times per month Electronic Cigarette/Vaping Electronic Cigarette Use: Never. Substance Use Never Tobacco Never tobacco user Tobacco Use:. Electronically Signed on 07/04/22 03:05 PM Gil Celestin MD Patient Care team information Care Team Personnel Name: MIQUEL SILVERMAN Position: No Access Member Role: Primary Care Physician Address: Address: [address] [address]- [place]
--- OUTSIDE RECORDS SUMMARY | 2024-02-09 01:49 | XMS_ITS | Continuity of Care Document ---
Author Organization [facility] Address [address] [place] [address] Care Team Providers Care Maintenance And Repair Worker Name Role Phone MIQUEL SILVERMAN Primary Care Physician Encounter [facility] NBR [id number] Date(s): 10/22/23 - 10/22/23 [facility] [address] [place], [place] [address] Encounter Diagnosis Lower respiratory infection(Discharge Diagnosis) - 10/22/23 Cough(Discharge Diagnosis) - 10/22/23 Discharge Disposition: Home or Self Care Attending Physician: Rima Rosario PA-C Allergies, Adverse Reactions, Alerts No Known Allergies Assessment and Plan Extracted from: Title:Office Visit Note Author:CRISTINA Modi Date:10/22/23 1.??Lower respiratory infect ion??J22 ??On physical exam patient is noted to have crackles in the left lower lobe, her x-ray is negative for any obvious pneumonia but given clinical picture and??exam findings I do??feel it is necessary to cover patient for a lower respiratory infection. ??She will be started on doxycycline. ??Encouraged rest, plenty of fluids.?? I sent a prescription for Tessalon Perles that she can utilize at bedtime for cough.?? Encouraged recheck for any worsening cough, shortness of breath, or other symptoms of concern. Ordered: Tessalon Perles 100 mg oral capsule, 100 mg = 1 cap, Oral, TID, PRN as needed for cough, # 21 cap, 0 Refill(s), Pharmacy: [facility] #[facility], 167.64, cm, 10/22/23 13:16:00 EDT, Height, 90.72, kg, 10/22/23 13:19:00 EDT, Weight Dosing doxycycline hyclate 100 mg oral capsule, 100 mg = 1 cap, Oral, BID, # 14 cap, 0 Refill(s), Pharmacy: [facility], 167.64, cm, 10/22/23 13:16:00 EDT, Height, 90.72, kg, 10/22/23 13:19:00 EDT, Weight Dosing Office serv/reg krissy/wkend/holiday [id number], 10/22/23 13:13:00 EDT, Lower respiratory infection Cough ?? 2.??Cough??R05.9 Ordered: Tessalon Perles 100 mg oral capsule, 100 mg = 1 cap, Oral, TID, PRN as needed for cough, # 21 cap, 0 Refill(s), Pharmacy: [facility], 167.64, cm, 10/22/23 13:16:00 EDT, Height, 90.72, kg, 10/22/23 13:19:00 EDT, Weight Dosing doxycycline hyclate 100 mg oral capsule, 100 mg = 1 cap, Oral, BID, # 14 cap, 0 Refill(s), Pharmacy: [facility], 167.64, cm, 10/22/23 13:16:00 EDT, Height, 90.72, kg, 10/22/23 13:19:00 EDT, Weight Dosing Office serv/reg krissy/wkend/holiday [id number], 10/22/23 13:13:00 EDT, Lower respiratory infection Cough ?? Medications doxycycline hyclate 100 mg oral capsule 100 mg = 1 cap, Oral, BID, # 14 cap, 0 Refill(s), Pharmacy: [facility], 167.64, cm, 10/22/23 13:16:00 EDT, Height, 90.72, kg, 10/22/23 13:19:00 EDT, Weight Dosing Start Date: 10/22/23 Stop Date: 10/29/23 Status: Ordered Tessalon Perles 100 mg oral capsule 100 mg = 1 cap, Oral, TID, PRN as needed for cough, # 21 cap, 0 Refill(s), Pharmacy: [facility], 167.64, cm, 10/22/23 13:16:00 EDT, Height, 90.72, kg, 10/22/23 13:19:00 EDT, Weight Dosing Start Date: 10/22/23 Stop Date: 10/29/23 Status: Ordered Problem List No Known Problems Procedures Procedure Date Related Diagnosis Body Site Status Appendectomy Laparoscopy 1 06/07/22 Completed 1auto-populated from documented surgical case Vital Signs Most recent to oldest [Reference Range]: 1 Temperature Tympanic [36.6-38.1 Deg C] 3 6.1 Deg C *LOW* (10/22/23 1:16 PM) Peripheral Pulse Rate [60-100 bpm] 79 bp m (10/22/23 1:16 PM) Blood Pressure [90-140/60-90 mmHg] 140/8 1mmHg (10/22/23 1:16 PM) Mean Arterial Pressure, Cuff [65-140 mmH g] 101 mmHg (10/22/23 1:16 PM) Weight 90.72 kg (10/22/23 1:16 PM) Weight Measured (lbs) 200.003 lb (10/22/23 1:16 PM) Weight Dosing 90.720 kg (10/22/23 1:16 PM) Height 167.64 cm (10/22/23 1:16 PM) Height/Length Measured (inches) 66 inch (10/22/23 1:16 PM) BSA Measured 2.06 m2 (10/22/23 1:16 PM) Body Mass Index 32.28 kg/m2 (10/22/23 1:16 PM) Social History Social History Type Response Tobacco Never tobacco user T obacco Use:. Sex Physician Outpatient Note * Rima Rosario PA-C: PERFORM Event Display: Office Clinic Note Physician Authored Date: [id number] MATILDE HUNTER :2000 Age:23 years Sex:Female Visit Date:10/22/2023 Primary Care Physician: MIQUEL SILVERMAN Chief Complaint pt reports cough x 1 week, having pain with cough. ??Worse with laying down and walking. History of Present Illness This is a 23-year-old female who presents for evaluation of cough.?? Patient reports that she has had an intractable, wet cough for the past 5 days. ??She has had some shortness of breath with exertion.?? Her chest does feel tight. ??She has not had wheezing. ??No underlying history of asthma. ??Nochest pain.?? Her energy has been very low. ??She??believes she may have had a fever yesterday as she felt extremely chilled all day. ??She has not taken her temperature. ??She has not had any headache, body aches.?? No sinus congestion or sore throat.?? She is unable to sleep due to the cough. ??Laying down is very difficult Physical Exam Vitals & Measurements T:??36.1?C ??(Tympanic)?? HR:??79??(Peripheral)?? BP:??140/81?? SpO2:??99%?? HT:??167.64??cm?? WT:??90.72??kg?? BMI:??32.28?? BSA:??2.06?? General: A&O x 3, well-built and hydrated, no acute distress Eyes: PERRLA, no redness or drainage Ears: auditory canals non-tender bilaterally, bilateral TMs translucent and pearly alatorre Nose: nares moist and patent Mouth: moist mucous membranes without lesions Throat: oropharynx and tonsils without erythema or exudate Neck:?? supple, no lymphadenopathy Chest: symmetric rise,??no retractions Heart: normal S1S2, no murmurs, rubs, gallops Lungs: equal and symmetric respiratory effort,??crackles left lower lobe, no wheezing or rales Assessment/Plan 1.??Lower respiratory infection??J22 ??On physical exam patient is noted to have crackles in the left lower lobe, her x-ray is negative for any obvious pneumonia but given clinical picture and??exam findings I do??feel it is necessary to cover patient for a lower respiratory infection. ??She will be started on doxycycline. ??Encouraged rest, plenty of fluids.?? I sent a prescription for Tessalon Perles that she can utilize at bedtime for cough.?? Encouraged recheck for any worsening cough, shortness of breath, or other symptoms ofconcern. Ordered: Tessalon Perles 100 mg oral capsule, 100 mg = 1 cap, Oral, TID, PRN as needed for cough, # 21 cap, 0 Refill(s), Pharmacy: [facility], 167.64, cm, 10/22/23 13:16:00 EDT, Height, 90.72, kg, 10/22/23 13:19:00 EDT, Weight Dosing doxycycline hyclate 100 mg oral capsule, 100 mg = 1 cap, Oral, BID, # 14 cap, 0 Refill(s), Pharmacy: [facility], 167.64, cm, 10/22/23 13:16:00 EDT, Height, 90.72, kg, 10/22/23 13:19:00 EDT, Weight Dosing Office serv/reg krissy/wkend/holiday [id number], 10/22/23 13:13:00 EDT, Lower respiratory infection Cough ?? 2.??Cough??R05.9 Ordered: Tessalon Perles 100 mg oral capsule, 100 mg = 1 cap, Oral, TID, PRN as needed for cough, # 21 cap, 0 Refill(s), Pharmacy: [facility], 167.64, cm, 10/22/23 13:16:00 EDT, Height, 90.72, kg, 10/22/23 13:19:00 EDT, Weight Dosing doxycycline hyclate 100 mg oral capsule, 100 mg = 1 cap, Oral, BID, # 14 cap, 0 Refill(s), Pharmacy: [facility] #[facility], 167.64, cm, 10/22/23 13:16:00 EDT, Height, 90.72, kg, 10/22/23 13:19:00 EDT, Weight Dosing Office serv/reg krissy/wkend/holiday [id number], 10/22/23 13:13:00 EDT, Lower respiratory infection Cough ?? Problem List/Past Medical History Ongoing No chronic problems Historical No qualifying data Procedure/Surgical History ???Appendectomy Laparoscopy (06/07/2022) Medications doxycycline hyclate 100 mg oral capsule, 100 mg= 1 cap, Oral, BID Tessalon Perles 100 mg oral capsule, 100 mg= 1 cap, Oral, TID, PRN Allergies No Known Allergies Social History Alcohol Current, Beer, Wine, Liquor, 1-2 times per month Electronic Cigarette/Vaping Electronic Cigarette Use: Never. Substance Use Never Tobacco Never tobacco user Tobacco Use:. Electronically Signed on 10/22/2023 15:26 EDT Rima Rosaroi PA-C Patient Care team information Care Team Personnel Name: MIQUEL SILVERMAN Position: No Access Member Role: Primary Care Physician Address: Address: [address] Care Team Related Persons Name: JERRI HUNTER Address: Home [address] [place] [id number] [facility] Name: JERRI HUNTER Address: Home [address] [place] [phone] [facility]
--- OUTSIDE RECORDS SUMMARY | 2024-02-09 01:49 | XMS_ITS | Referral Summary ---
Author Organization [facility] Address [address] [place] [address] Care Team Providers Care Manager Environmental Health Name Role Phone Unavailable Primary Care Provider [...]
--- OUTSIDE RECORDS SUMMARY | 2024-02-09 01:49 | XMS_ITS | Encounter Summary ---
Author Organization [facility] [place] [address] Care Team Providers Care Gas Generator Operator Name Role Phone Unknown Primary Care Provider Unavailabl e Encounter Details Date Type Department Care Team (Late st Contact Info) Description 12/07/2022 4:00 PM EDT Office Visit Dermatology at [facility] [address] [place] [address] Hal Edge MD [facility] [address] [address] Multiple nevi Social History Tobacco Use Types Packs/Day Years Used Date Smoking Tobacco: Never Smokeless Tobacco: Never Sex and Gender Information Value Date Recorded Sex Assigned at Not on file Gender Identity Not on file Sexual Orientation Not on file documented as of this encounter Progress Notes * Hal Edge MD - 12/07/2022 4:00 PM EDT Images from the original note were not included. DEPARTMENT OF DERMATOLOGY Medical Dermatology Clinic Provider: Hal Edge MD Patient's preferred name Stacy Preferred contact method for results [x]Phone []myD-H []Letter Detailed phone message OK? Yes Are there any other people with whom we may discuss your care? No Past Medical History Date, location, treatment Melanoma No Dysplastic nevi No SCC No BCC No AKs No UV Exposure & Protection No Other relevant past medical history No Family History Details Melanoma Yes - Mother NMSC No Other relevant family history No Social History Occupation: Hobbies: Other: PRE-PROCEDURE SCREENING Details Allergy to lidocaine, epinephrine, Dermabond, chlorhexidine, or adhesives Bleeding disorder or blood thinners Pacemaker, defibrillator, deep brain stimulator, cochlear implant History of Present Illness: Stacy Hardy is a 22 y.o. Patient is new and self-referred to the clinic for reevaluation of a spot of concern located on the right posterior shoulder. She brady any new change but states he mom recently got diagnosed with Melanoma and would like reassurance. Medications: Reviewed in eD-H Allergies: Reviewed in eD-H Skin Examination: Focused skin examination of the right posterior shoulder was normal with the exception of the findings below. Assessment/Plan #. Benign Appearing Nevus - Right posterior shoulder: 0.5 cm evenly pigmented, medium-brown, fleshypapule with globular pattern on dermoscopy. (Figure 1-2) - Reassured of benign appearance and discussed etiology. - Patient will call with any changes. Figure 1 Figure 2 Photo(s) taken and charted with patient's verbal consent. Other: N/A RTC: PRN Scribe attestation: Antnoette Valenzuela [facility] has performed the documentation for this encounter in the presence of and acting as a scribe for Hal Edge MD. I performed the above scribed service and agree with the accuracy of the documentation in this encounter. Reviewed and signed by: Hal Edge MD Dermatology [facility] Patient seen and evaluated with staff fiberglass quality technician: Brady Zaman MD Dermatology [facility] * Brady Zaman MD - 12/07/2022 4:00 PM EDT I was the supervising physician working with dermatology resident Dr. Edge in the dermatology clinic during this patient visit. The level of resident supervision for this patient visit was indirect supervision with direct supervision immediately available. (definition: [facility] GME Policy Statement on Graduate Medical Education, Supervision of Graduate Medical Trainees) I was immediately available to Dr. Edge for questions and discussion regarding this visit. I have reviewed the encounter note details and level of service. BRADY ZAMAN MD Staff Physician documented in this encounter Plan of Treatment Not on file documented as of this encounter Visit Diagnoses Diagnosis Multiple nevi Benign neoplasm of skin, site unspecified documented in this encounter Care Teams Gas Generator Operator Relationship Specialty Start Date End Date Unknown None PCP - General 08/10/21 documented as of this encounter
--- OUTSIDE RECORDS SUMMARY | 2024-02-09 01:49 | XMS_ITS | Encounter Summary ---
Author Organization [facility] Address [address] [place] [address] Care Team Providers Care Melt Down Furnace Operator Name Role Phone Whit Avelar KARY Primary Care Provider [phone] Encounter Details Date Type Department Care Team (Late st Contact Info) Description 06/08/2022 Lab Requisition [facility] Pathology & Laboratory Medicine - [address] [address] Gil Celestin MD [address] [place] [address] Unspecified acute appendicitis Social History Tobacco Use Types Packs/Day Years [...] Procedure Name Priority Date/Time Associated Diagnosis Comments SURGICAL PATHOLOGY Today 06/07/2022 12 :15 EDT Unspecified acute appendicitis documented in this encounter Results * SURGICAL PATHOLOGY (06/07/2022 12:15 EDT) Note to Patient The following pathology results have been interpreted by your pathologist and may be available to you before your health provider has had the opportunity to review them. Please allow time for your provider to receive these results and explore management options, if applicable. 06/10/2022 9:34 EDT [facility] Final Diagnosis A. APPENDIX, APPENDECTOMY: - Acute suppurative appendicitis and periappendicitis. 06/10/2022 9:34 EDT [facility] Attestation There was significant resident/fellow involvement in the diagnostic evaluation of this case. By the signature below, the attending physician certifies that they have personally conducted a gross and/or microscopic examination of the described specimens and rendered or confirmed the above diagnosis. 06/10/2022 9:34 [facility] at 0934 Clinical History Acute appendicitis; clinical diagnosis code: K35.80 06/10/2022 9:34 [facility] Gross Description A. The specimen is initially received unlabeled. In accordance with the Laboratory Specimen Rejection Policy and Laboratory Accountability policy, ELAINA Fairchild spoke with Leticia, Band And Cuff Cutter, at [facility], who was involved with the collection of the specimen. She has verified that the specimen was actually collected from [facility], and has taken full responsibility for identifying and labelling the specimen with the correct patient name and specimen type. Received in formalin labelled with proper patient identification (initials B, A) and appendix is an appendix (8.7 cm in length x 1.0 cm in diameter), with a minimal amount of attached mesoappendix. The proximal margin is stapled. The serosa is dusky mccann-peacock with scattered adherent peacock fibrous exudate. The cut surface is dusky mccann-peacock. The average wall thickness is 0.2 cm. A perforation site is not grossly identified. The lumen ranges from 0.3 cm to 0.8 cm in diameter. A fecalith is not identified. The proximal margin is inked. The section adjacent to the stapled proximal margin, 1 employment program representative cross sections and one half of the longitudinally bisected distal tip are submitted in A1. RCISTINA YODER(ASCP) 06/08/2022 10:40 06/10/2022 9:34 [facility] Resident/Trevon w: Ranjan Carr MD 06/10/2022 9:34 [facility] Performing Lab [facility] 06/10/2022 9:34 [facility] Scanned Images 06/10/2022 9:34 [facility] Tissue ENTIRE APPENDIX / Unknown 06/07/2022 12:15 EDT 06/08/2022 9:59 EDT us Gil Celestin MD PATHOLOGY ORDERABLES F inal Result [facility] [address] [place] [address] documented in this encounter Visit Diagnoses Diagnosis Unspecified acute appendicitis documented in this encounter Care Teams Melt Down Furnace Operator Relationship Specialty Start Date End Date Whit Avelar FNP [address] [facility] [address] [place] [id number] PCP - General 05/25/22 documented as of this encounter
--- OUTSIDE RECORDS SUMMARY | 2024-02-09 01:49 | XMS_ITS | Encounter Summary ---
Author Organization [facility] Address [address] [place] [address] Care Team Providers Care Stained Glass Painter Name Role Phone Satish Gallegos MD Primary Care Provider Unavailab le Reason for Visit * Reason Comments Abdominal Pain Encounter Details Date Type Department Care Team (Late st Contact Info) Description 12/18/2018 6:51 PM EDT - 12/18/2018 9:57 PM EDT Emergency [facility] Emergency Department [address] [place] [id number] Swetha Meza MD [address] [place] [id number] Discharge Disposition: Left Before Exam Complete Social History Tobacco Use Types Packs/Day Years Used Date Smoking Tobacco: Never Assessed Comments Unknown Sex and Gender Information Value Date Recorded Sex Assigned at Not on file Legal Sex Female 5:03 PM EDT Gender Identity Not on file Sexual Orientation Not on file documented as of this encounter Last Filed Vital Signs Vital Sign Reading [...] - - Body Mass Index - - documented in this encounter ED Notes * James Scott MD - 12/18/2018 5:06 PM EDT 18 yo F w abrupt onset RLQ pain. Started earlier today. Radiates to R flank. No fever or urinary symptoms. No nausea, vomiting, or fever. No prior pain like this. ?ovarian vs UTI vs stone. Plan UA, UCG, eval in main ED. * Little Torre RN - 12/18/2018 5:05 PM EDT Pt. Arrives by self to ER with RLQ abd pain since last night, worsening throughout today. Pt. Describes it as being tight then with a sharp pain. No nausea, no vomiting no fever. +lack of appetite. Denies urinary symptoms. Unknown LMP, unknown status, taking OCPs and skipping weeks. No PMH, no daily medications other than control. documented in this encounter Plan of Treatment Not on file documented as of this encounter Procedures Procedure Name Priority Date/Time Associated Diagnosis Comments HCG QUALITATIVE, URINE (URINE ) STAT 12/18/2018 5:23 PM EDT URINALYSIS SCREEN STAT 12/18/2018 5:2 3 PM EDT documented in this encounter Results * HCG UR QL (12/18/2018 5:23 PM EDT) HCG Qualitative, Urine (Urine ) NEGATIVE NEGATIVE [facility] Comment:LOD: 20 mIU/mL Urine specimen (specimen) 12/18/2018 5:23 PM EDT 12/18/2018 5:28 PM EDT us James Scott MD URINE ORDERABLES Final Resu lt [facility] [address] [address] Commercial Real Estate Agent: Jeremiah Schaeffer MD [phone] * (ABNORMAL) Urinalysis Screen Reflex Sediment (12/18/2018 5:23 PM EDT) Color Ur PALE YELLOW [facility] Appearance UR CLEAR [facility] Specific [place] UR 1.008 1.005 - 1.030 [facility] Leukocyte Esterase Ur 500(A) NEGATIVE [facility] Nitrite Ur NEGATIVE NEGATIVE [facility] pH Ur 5.0 5.0 - 8.0 [facility] Protein UR 75(A) NEGATIVE mg/dL [facility] Glucose UR QL NEGATIVE NEGATIVE mg/dL [facility] Ketones Ur Ql NEGATIVE NEGATIVE [facility] Urobilinogen Ur NORMAL NORMAL mg/dL [facility] Hemoglobin, UR 250(A) NEGATIVE [place]/uL [facility] Urine Sediment PERFORMED [facility] Erythrocytes, Ur Sediment 3-10 /HPF [facility] Leukocytes Ur Sediment >100 /HPF [facility] Epithelial Cells UR Sediment NONE SEEN /HPF [facility] Renal Epithel, UA NONE SEEN /HPF [facility] Bacteria Ur Sediment 2+ /HPF [facility] Clumping Leukocytes, UA PRESENT /HPF [facility] Urine specimen (specimen) 12/18/2018 5:23 PM EDT 12/18/2018 5:28 PM EDT James Scott MD URINALYSIS ORDERABLES Final Result Performing Organization Address City/State/[facility] Co de Phone Number [facility] [address] [place] [address] Commercial Real Estate Agent: Jeremiah Schaeffer MD [phone] documented in this encounter Visit Diagnoses Not on filedocumented in this encounter Administered Medications Inactive Administered Medications - up to 3 most recent administrations Medication Order MAR Action Action Date Dose Rate Site ibuprofen tablet 400 mg 400 mg, Oral, Once, On Mon12/18/18 at 1715, For 1 dose, 1) Take with food. 2) Max recommended daily dose = 3200mg. Possible side effects: nausea, rash, stomach upset Given 12/18/2018 6:25 PM EDT 400 mg documented in this encounter Active and Recently Administered Medications Times are shown in EDT. Scheduled Medication Order 12/16/2018 12/17/2018 12/18/2018 ibuprofen tablet 400 mg (COMPLETED) 400 mg, Oral, Once, On Mon12/18/18 at 1715, For 1 dose, 1) Take with food. 2) Max recommended daily dose = 3200mg. Possible side effects: nausea, rash, stomach upset 1824 (Given - Provid er: Valdemar Fam RN) documented in this encounter Care Teams Stained Glass Painter Relationship Specialty Start Date End Date Satish Gallegos MD PCP - General Pediatrics 12/18/18 03/23/22 documented as of this encounter
--- OUTSIDE RECORDS SUMMARY | 2024-02-09 01:49 | XMS_ITS | Encounter Summary ---
Author Organization [facility] Address [facility] [place] [address] Care Team Providers Care Certified Midwife Name Role Phone Satish Gallegos MD Primary Care Provider [phone] Reason for Visit * Reason Comments Skin Lesion Back * Consultation (Routine) - Closed Specialty Diagnoses / Procedures Referred By Nelia portillo Referred To Contact Dermatology Diagnoses Atypical Mole Jemima King, VITICULTURIST [address] [place] [address] [facility] Dermatology [address] [place] [address] Referral ID Status Reason Start Date Expiration Date V isits Requested Visits Authorized [id number] Closed Consult, Test & Treat Connection Center 11/06/2017 11/06/2018 1 1 Encounter Details Date Type Department Care Team (Late st Contact Info) Description 01/01/2018 3:45 PM EDT Office Visit Dermatology at [facility] [address] [place] [id number] Catrina Zaman MD [facility] [place] [address] Congenital nevus Social History Tobacco Use Types Packs/Day Years Used Date Smoking Tobacco: Never Smokeless Tobacco: Never Sex and Gender Information Value Date Recorded Sex Assigned at Not on file Gender Identity Not on file Sexual Orientation Not on file documented as of this encounter Progress Notes * Catrina Zaman MD - 01/01/2018 3:45 PM EDT Images from the original note were not included. DERMATOLOGY CONSULT NOTE Date of service: 01/01/2018 Stacy Hardy : 2000 Provider: Catrina Zaman MD Chief Complaint Patient presents with ??? Skin Lesion Back The patient is seen at the request of Satish Gallegos MD, who instructed the patient to be seen for evaluation of the above. SKIN HX: Skin cancer: None Skin disease: None Dysplastic nevus: None Blistering sunburns: Localized, none general Tanning bed use: No Family Skin History: Skin cancer: None Skin disease: None Social History: Occupation: Student at [employer]; studying nursing Marital status: Single Wears sunscreen SPF 30+: Yes Patient Preferences: Preferred name: Ally Preferred contact method with results: Cell phone Detailed message including biopsy results okay?: Yes Are there any other people with whom we may discuss your care?: Mom HPI Stacy Hardy is a 17 y.o. female, new patient, referred here today for evaluation of a nevus on her right posterior shoulder. Patient says her PCP was concerned about atypia. 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 Patient denies symptoms or recent change, though patient's mom says she thinks it has grown slightly over time with her. ADR: Review of patient's allergies indicates no known allergies. MEDS: No current outpatient prescriptions on file. No current facility-administered medications for this visit. ROS General: feeling well Skin: denies other skin complaints EXAM General: NAD, pleasant, cooperative Skin: A focused exam of the back was performed. Significant skin findings: A. Right posterior shoulder: 0.5 cm evenly pigmented, medium-brown, fleshy papule with globular pattern on dermoscopy. Photo(s) taken and charted with patient's verbal consent. ASSESSMENT/PLAN: A. Benign appearing nevus - Long-standing and unchanged. - Discussed benign nature of lesion and provided reassurance. No treatment necessary at this time. - Discussed changes (bleeding, pain, color or shape) that should prompt re- evaluation.??Explained that patient may get new nevi until early 30s. FOLLOW UP: PRN. Instructed patient to call with questions or concerns. I am documenting this encounter acting as the scribe for and in the presence of Dr. Zaman: Tamar Adkins [facility] I performed the above scribed service and agree with the accuracy of the documentation in this encounter. Catrina Zaman MD Section of Dermatology [facility] cc: Satish Gallegos MD documented in this encounter Plan of Treatment Not on file documented as of this encounter Visit Diagnoses Diagnosis Congenital nevus Benign neoplasm of skin, site unspecified documented in this encounter Care Teams Certified Midwife Relationship Specialty Start Date End Date Satish Gallegos MD [address] [place] [address] PCP - General Pediatrics 01/01/18 08/09/21 documented as of this encounter
[2024-02-09 15:35] LABS: Panorama Kit Sent via Fed Ex
[2024-02-09 15:40] LABS: Abs Immature Grans 0.05 10^3/uL (0.0-0.06); Absolute Basophil Count 0.05 10^3/uL (0.0-0.2); Absolute Eosinophil Count 0.04 10^3/uL (0.0-0.7); Absolute Lymphocyte Count 2.93 10^3/uL (1.2-3.4); Absolute Monocyte Count 0.68 10^3/uL (0.1-0.8); Absolute Neutrophil Count 8.86 10^3/uL (1.2-6.7); Basophils % 0.4 %; Eosinophils % 0.3 %; HCT 37.8 % (36.0-46.0); HGB 12.6 g/dL (11.2-15.7); Immature Grans % 0.4 %; Lymphocytes % 23.2 %; MCH 27.9 pg (27.0-33.0); MCHC 33.3 % (32.0-36.0); MCV 84 fL (80-95); Monocytes % 5.4 %; Neutrophils % 70.3 %; Platelet Count 338 10^3/uL (130-400); RBC 4.51 10^6/uL (3.93-5.22); RDW 12.9 % (11.7-14.6); RDW-SD 38.8 fL; WBC 12.61 10^3/uL (4.4-10.8)
[2024-02-09 16:49] LABS: TSH (W/Ref FT4) 1.77 uIU/mL (0.36-3.74)
[2024-02-10 10:00] LABS: HIV-1/2 Ag & Ab Screen Negative (Negative)
[2024-02-12 11:38] LABS: Varicella IgG Antibody Positive (See Note)
[2024-02-12 11:40] LABS: Rubella IgG Ab (UVM) Positive (See Note)
[2024-02-12 13:33] LABS: Hepatitis C Ab w Rflx HCV PCR Negative (Negative)
[2024-02-12 16:47] LABS: Hepatitis B Surface Ag Negative (Negative)
[2024-02-13 13:20] LABS: Syphilis IgG w/Reflex Nonreactive (Nonreactive)
[2024-02-21 11:26] LABS: Specimen WB Whole Blood
[2024-02-27 14:44] LABS: Result Summary NEGATIVE; Specimen WB Whole Blood
== END 2024-02-09 01:48 | disposition home or self-care (01) ==
LOC: LBO 01:48
PROVIDERS: PCP Nurse Practitioner Family; Visit Provider Advanced Practice Midwife
DX: Z34.91 Encounter for supervision of normal pregnancy, unspecified, first trimester (principal)
CPT/HCPCS: 36415; 81220; 81222; 81329; 86787; 86803; 86850; 86900; 86901; 87340; 87389; 84443; 85025; 86762; 86780

== ENCOUNTER 2024-02-09 14:18 | Outpatient (REF) | payer OTHER, SELFPAY ==
--- NOTE | 2024-02-09 14:00 | PAPFT_PTH ---
PATIENT: Stacy Hardy LOC: [facility] U#:[id number] AGE/SX: 23/F ROOM: RE02/09/[address]: Jemima Henriquez CNM : 2000 BED: DIS: 02/09/2024 SPEC #: [id number] RECD: 02/09/24 18:11 STATUS: RENEE REQ #: [id number] ASHLEY: 02/09/24 14:[address]: Jemima Henriquez DEPT: [facility] Cytology RECD BY: Luz Vasques ENTERED: 02/09/24 18:12 SP TYPE: PAPFT OTHR DR: Whit Avelar Tissues: 1 - CX/ENDOCX FOR PAP SMEARS Procedures: PAP THIN PREP/UVM Screening Comments: [id number] (CHLAMYDIA/GC)
[2024-02-12 12:59] LABS: Chlamydia Result Negative (Negative); GC Result Negative (Negative)
== END 2024-02-09 14:19 | disposition home or self-care (01) ==
LOC: LBN 14:18
PROVIDERS: PCP Nurse Practitioner Family; Visit Provider Advanced Practice Midwife
DX: Z34.91 Encounter for supervision of normal pregnancy, unspecified, first trimester (principal)
CPT/HCPCS: 87491; 87591; 88142; 87086

== ENCOUNTER 2024-02-12 03:13 | Outpatient (CLI) | payer OTHER, SELFPAY ==
[2024-02-12 14:33] LABS: Glucose,1 Hr (Glucola) 140 mg/dL (80-140)
== END 2024-02-12 03:14 | disposition home or self-care (01) ==
LOC: LBO 03:13
PROVIDERS: PCP Nurse Practitioner Family; Visit Provider Advanced Practice Midwife
DX: Z34.91 Encounter for supervision of normal pregnancy, unspecified, first trimester (principal)
CPT/HCPCS: 36415; 82950

== ENCOUNTER 2024-02-21 03:07 | Outpatient (CLI) | payer OTHER, SELFPAY ==
[2024-02-21 09:01] LABS: Glucose 1 Hour 132 mg/dL
[2024-02-21 11:00] LABS: Glucose 3 Hour 101 mg/dL
== END 2024-02-21 03:08 | disposition home or self-care (01) ==
LOC: LBO 03:07
PROVIDERS: PCP Nurse Practitioner Family; Visit Provider Advanced Practice Midwife
DX: R73.09 Other abnormal glucose (principal)
CPT/HCPCS: 36415; 82951

== ENCOUNTER 2024-05-22 07:35 | Outpatient (CLI) | payer BC, SELFPAY ==
[2024-05-22 09:49] LABS: Glucose 1 Hour 158 mg/dL
[2024-05-22 11:39] LABS: Glucose 3 Hour 139 mg/dL
== END 2024-05-22 07:36 | disposition home or self-care (01) ==
LOC: LBO 07:35
PROVIDERS: PCP Nurse Practitioner Family; Visit Provider Obstetrics & Gynecology Gynecology
DX: Z34.92 Encounter for supervision of normal pregnancy, unspecified, second trimester (principal); R73.09 Other abnormal glucose
CPT/HCPCS: 36415; 82951

== ENCOUNTER 2024-06-14 00:25 | Outpatient (CLI) | payer BC, SELFPAY ==
--- NOTE | 2024-06-14 09:32 | W.NUTRFU ---
Date of service: 06/14/24 Time of Service: 09:00 Nutrition Note NOTE: Bindu comes to nutrition visit today due to abnormal glucose at 3H GTT - states was high at the 1 or 2 hour kita but normal at 3 hours. Bindu states no need to check glucose at this time but will follow up with provider. Would like diet recommendations for her eating goals. I reviewed some recommendations for macros and some diet constituents like fiber and added sugar and saturated fat and showed her a resource where she can adjust menus to her preferences within those macro targets. We discussed glycemic index of food/carbs changing due to processing and also important to combine carbs with fat/protein to lower glycemic load of the meal/snack. Encouraged activity/exercise with emphasis on resistance exercises with resitance bands or whatever might be a safe option during . She will work on some menu planning with batch prepping for some meal ideas she liked today. I had an extra dexcom CGM (stelo otc version) and let her take home to wear for some ideas of her glucose trends but informed her it is not a diagnostic or lab device as far as accuaracy goes and to let me know if she has any questions or concerns with it. - would be good to see in real time what walking after meals does and high sugar snacks do to glucose levels.... Has my contact info should she like follow up or has any questions/need for resources Time Spent in Nutritional Counseling and Treatment: 25minutes
== END 2024-06-14 00:26 | disposition home or self-care (01) ==
LOC: DS 00:26
PROVIDERS: PCP Nurse Practitioner Family; Visit Provider Dietitian, Registered
DX: R73.09 Other abnormal glucose (principal)
CPT/HCPCS: 00123; 97802

== ENCOUNTER 2024-07-04 08:42 | Outpatient (REF) | payer BC, SELFPAY ==
[2024-07-04 09:01] LABS: Bilirubin Negative (Negative); Blood Negative (Negative); Clarity Sl Cloudy (Clear); Glucose 250 mg/dL (Negative); Ketones Trace mg/dL (Negative); Leukocyte Esterase Negative (Negative); Nitrite Negative (Negative); Specific Gravity 1.015 (1.005-1.025); Urobilinogen 0.2 mg/dL (Up to 0.2)
== END 2024-07-04 08:43 | disposition home or self-care (01) ==
LOC: LBN 08:42
PROVIDERS: PCP Nurse Practitioner Family; Visit Provider Advanced Practice Midwife
DX: Z34.93 Encounter for supervision of normal pregnancy, unspecified, third trimester (principal); R30.0 Dysuria
CPT/HCPCS: 81003

== ENCOUNTER 2024-07-05 11:06 | Outpatient (CLI) | payer BC, SELFPAY ==
[2024-07-05 11:10] VITALS: BP 132/78; PULSE 93; TEMP 36.8
[2024-07-05 11:32] VITALS: BP 132/78; PULSE 93
[2024-07-05 11:52] LABS: HCT 39.4 % (36.0-46.0); HGB 13.1 g/dL (11.2-15.7); MCH 28.1 pg (27.0-33.0); MCHC 33.2 % (32.0-36.0); MCV 84 fL (80-95); MPV 10.1 fL (8.0-11.0); Platelet Count 294 10^3/uL (130-400); RBC 4.67 10^6/uL (3.93-5.22); RDW 13.9 % (11.7-14.6); RDW-SD 42.6 fL; WBC 8.57 10^3/uL (4.4-10.8)
--- NOTE | 2024-07-05 11:54 | W.OBNST ---
Date of service: 07/05/24 Time of Service: 11:54 NST Evaluation Reason for NST Reasons for Nonstress Test: GESTATIONAL HYPERTENSION Gestational Age Gestational Age in Weeks and Days: 32 Weeks and 4Days Test and Monitor Explained Test/Monitor Explained: Test Explained, Monitor Explained and Patient Verbalized Understanding Vital Signs Blood Pressure: 132/78 Pulse: 93 Temperature: 98.2 F NST Information Date on Monitor: 07/05/24 Time on Monitor: 11:14 Date off Monitor: 07/05/24 Time off Monitor: 11:46 Total Time on Monitor: 32 NST Interventions: PO Hydration Contraction Frequency: none Comments: right sided lower abdominal cramping NST Evaluation Patient States Movement: Present FHR Baseline: 145 Variability: Moderate 6-25 bpm Accelerations: 15x15 Decelerations: None NST Results: Reactive Note Ultrasound Done: N/A. NST Note Note: at 32w4d presents for NST secondary to first elevated BP in this of 137/98, repeat at is 132/78. No RUQ pain, vision changes, headache or significant edema. CMP and Protein:Creatine ratio drawn in addition to HgbA1c due to glucosuria yesterday. Discussed dx criteria of gHTN and Preeclampsia in addition to management of these conditions. Discharge to home pending normal labs, FU for schedule PNV in 2 weeks. NST Reviewed and Verified by: Rolanda Schmid
[2024-07-05 11:56] VITALS: BP 132/78; PULSE 93; TEMP 36.8
[2024-07-05 12:02] LABS: Hemoglobin A1C 5.4 % (<5.7)
[2024-07-05 12:15] LABS: ALT 30 U/L (14-59); AST 19 U/L (15-37); Albumin 2.4 g/dL (3.4-5.0); Alkaline Phosphatase 118 U/L (46-116); Anion Gap 10.2 mmol/L (3-11); BUN 6 mg/dL (7-18); Bilirubin, Total 0.2 mg/dL (0.2-1.0); CO2 21.8 mmol/L (21.0-32.0); CREATININE 0.5 mg/dL (0.55-1.02); Calcium 9.1 mg/dL (8.5-10.1); Chloride 106 mmol/L (98-107); Glucose 164 mg/dL (74-106); Potassium 3.8 mmol/L (3.5-5.1); Sodium 138 mmol/L (136-145); Total Protein 6.6 g/dL (6.4-8.2)
[2024-07-05 12:22] LABS: COMMENT (LAB VIEW ONLY) 73.31 mg/dL; PROTEIN 9.7 mg/dL; Prot/Crea Ur Ratio 0.13
== END 2024-07-05 12:20 | disposition other institution (70) ==
LOC: BCD 11:06 → OBS 11:09
PROVIDERS: Advanced Practice Midwife; PCP Nurse Practitioner Family; Visit Provider Advanced Practice Midwife
DX: O13.3 Gestational [pregnancy-induced] hypertension without significant proteinuria, third trimester (principal); Z3A.32 32 weeks gestation of pregnancy
CPT/HCPCS: 36415; 80053; 85027; 59025; 82565; 83036; 84156

== ENCOUNTER 2024-07-13 15:42 | Outpatient (CLI) | payer BC, SELFPAY ==
[2024-07-13 16:10] VITALS: BP 130/83; PULSE 81; TEMP 37
[2024-07-13 16:17] VITALS: BP 130/83; PULSE 81
[2024-07-13 16:38] VITALS: BP 135/85; PULSE 83
--- NOTE | 2024-07-13 21:28 | W.OBNST ---
Date of service: 07/13/24 Time of Service: 22:07 NST Evaluation Reason for NST Reasons for Nonstress Test: DECREASED MOVEMENT Gestational Age Gestational Age in Weeks and Days: 33 Weeks and 5Days Test and Monitor Explained Test/Monitor Explained: Test Explained, Monitor Explained and Patient Verbalized Understanding Vital Signs Blood Pressure: 130/83 Pulse: 81 Temperature: 98.6 F Urine Results Urine Protein: Negative Urine Ketones: Positive Urine Glucose: Negative Urine Blood: Positive NST Information Time on Monitor: 16:17 Date off Monitor: 07/13/24 Time off Monitor: 16:53 NST Interventions: PO Hydration, Reposition Patient and Other NST Evaluation Patient States Movement: Decreased FHR Baseline: 145 Variability: Moderate 6-25 bpm Accelerations: 15x15 Decelerations: None NST Results: Reactive Note Ultrasound Done: N/A. NST Note Note: Stacy had her baby shower today and she reports that she is not feeling well with low back pain. She reports flank pain and decreased movement. She took her BP at home and it was higher than normal at 140/90. Reactive NST. urine dip shows hematuria and trace ketones noted. flank pain. Will plan renal US on 07/15 to rule out pyelonephritis or kidney stone. Comfort measures and adequate fluids recommended. She was encouraged to call if symptoms worsen. NST Reviewed and Verified by: Naomi Silva
[2024-07-13 22:10] VITALS: BP 130/83; PULSE 81; TEMP 37
[2024-07-14 20:28] VITALS: BP 130/80; PULSE 89
== END 2024-07-13 17:05 ==
LOC: BCD 15:43 → OBS 15:46
PROVIDERS: PCP Nurse Practitioner Family; Visit Provider Advanced Practice Midwife
DX: O36.8131 Decreased fetal movements, third trimester, fetus 1 (principal); Z3A.33 33 weeks gestation of pregnancy
CPT/HCPCS: 59025

== ENCOUNTER 2024-07-14 13:19 | Observation (INO) | payer BC, SELFPAY ==
[2024-07-14] VITALS (10 sets, daily range): BP systolic 119–141; BP diastolic 68–85; PULSE 68–82; RESP 16; TEMP 36.5–36.7; O2SAT 69–100
--- NOTE | 2024-07-14 | DI.US_ITS ---
Exam(s) US RENAL EXAM: US RENAL CLINICAL HISTORY: right flank pain, hematuria, 33 weeks gest TECHNIQUE: Ultrasound of both kidneys performed using standard protocol. COMPARISON: US US OB 2-3 TRIMESTER from 04/12/2024 FINDINGS: Patient has apparently 33 weeks with right flank pain RIGHT KIDNEY: Measures 13.5 cm in length. No cysts evident. Normal cortical thickness and corticomedullary differen tiation .No solid masses There are echogenic calculi seen within the right kidney measuring up to 9 mm and there is mild-moder ate unilateral right-sided hydronephrosis of the right kidney. The partially visualize uppermost rig ht ureter is also dilated. LEFT KIDNEY: Measures 13.3 cm in length. No cysts evident. Normal cortical thickness and corticomedullary differe ntiaion. No solids masses. Calculi are also seen in the left kidney largest measuring 10 mm in the i nferior pole. There is no hydronephrosis on the left side. URINARY BLADDER: Prevoid volume is 259 cc Postvoid volume is 0 cc No evidence of bladder mass nor diverticuli. Ureterovesical jets: Both not visualized. IMPRESSION: 1. There is bilateral nephrolithiasis. 2. There is unilateral mild-moderate hydronephrosis of the right kidney. Given the nephrolithiasis, unilateral right-sided hydronephrosis, and 33 weeks , possibility of a calculus in the right ureter is a significant consideration vs right-sided hydronephrosis of pre gnancy vs combination of both. DATA REPOSITORY:
--- NOTE | 2024-07-14 13:38 | HPE_ITS ---
Date of service: 07/14/24 Time of Service: 13:38 Assessment and Plan Assessment and plan (1) Hematuria: Status: Acute Assessment and plan: Admit to the center to observation. UA with reflex, (2) Right flank pain: Status: Acute Assessment and plan: IV fluid bolus, CBC and CMP, IV pain relief and zofran IV PRN. Bedrest with BRP. TYLENOL PO OR DILAUDID IV for pain relief. NST. Dr Cadena was consulted via telephone and agrees with this plan. (3) Kidney stones: Assessment and plan: renal US ordered for tomorrow morning OB-HPI Labor/Delivery History of Present Illness Reason for Visit: Right flank pain Chief Complaint: Other (suspected kidney stone. ). SENDY Calculator Estimated Delivery Date Method Current WG Current Estimate 08/26/24 LMP (Certain) 33w 6d Other Estimates 08/27/24 Ultrasound #1 33w 5d Comments: Stacy presented to the center yesterday with report of right side flank pain. hematuria noted on urine dip. Pain was managed with tylenol overnight and she reported that she slept well. This morning the pain returned. She took tylenol at 1000 and vomited soon after. She took a repeat dose of tylenol at 1130. She vomited upon arrival at 1330. She is admitted for hydration, anti- emetic therapy and pain control for suspected kidney stone. History of Present Expected Delivery Route/Plan - CNM FOB - Morgan Riff (first child) BG- Petey Morgan for labor support. Specific Issues/Plan 1. BMI 39, early glucola 140; 3 hr GTT- 89, 132, 120, 101, repeat 3-hr GTT at 28 weeks 2hr reading 157, RD consult accepted 2. cfDNA - low risk, CF neg, SMA- neg, normal 20wk U/S, ant placenta 3. 5p screen negative, PHQ9 score is 0 4. Low dose ASA for nulliparity and elevated BMI 5. left hip pain- sciatica, used heat and ice. 04/22: improved 6. Discomfort with urination - urinalysis neg and glucosuria noted - Hgb A1C 5.4 7. 07/05/24 elevated BP without dx HTN, labs WNL p:C 0.13. rNST PFSH All Active Problems (Updated 07/14/24 @ 14:18 by Naomi Silva CNM) Hematuria (Acute) Right flank pain (Acute) Glucosuria (Acute) Dysuria (Acute) Elevated glucose (Acute) Obesity (BMI 35.0-39.9 without comorbidity) (Acute) (Acute) Medical History (Updated 07/14/24 @ 14:18 by Naomi Silva CNM) Kidney stones 2019 [facility] Ed Date of last menstrual period (LMP) unknown Missed menses Surgical History (Updated 12/25/23 @ 15:01 by Naomi Silva CNM) S/P appendectomy Tooth extraction extractions Family History (Updated 12/25/23 @ 15:02 by Naomi Silva CNM) Mother Essential hypertension Brother Asthma Brother Asthma outgrown Maternal Grandfather Diabetes Heart disease Social History Smoking/Tobacco Use Status: Never Smoking risk assessment performed?: Yes Alcohol Intake: never Drug use: Never Substance use type: does not use Do you feel safe at home: Yes Do you feel safe in your relationship?: Yes History History 2 Para 0 Hx # Term Pregnancies 0 Multiple births 0 Hx # Pregnancies 0 Ectopic pregnancies 0 AB induced 1 Hx Number of Living Children 0 AB spontaneous 0 Meds Allergies and Home Medications Allergies Allergy/AdvReac Type Severity Reaction Status Date / Time No Known Allergies Allergy Verified 06/21/24 08:22 Home Medications ?Medication ?Instructions ?Recorded ?Confirmed ?Type vits no.126-ferrous fum 1 tab PO DAILY 12/25/23 07/05/24 History 28 mg iron-folic acid 800 mcg tablet (Classic ) aspirin 81 mg tablet,delayed 81 mg PO DAILY #90 tabs 02/09/24 07/05/24 Rx release pantoprazole 40 mg tablet,delayed 40 mg PO DAILY #30 tabs 03/25/24 07/05/24 Rx release (Protonix) Exam Physical Exam Vital Signs Reviewed: Yes Narrative: BP 141/85. Chart review indicated right renal stone visualized on CT scan 2019 at [facility] ED. Constitutional Constitutional: moderate distress Detailed Labor and Delivery Exam Gupta Score: Cervical Points Exam 0 1 2 3 Dilation Closed 1-2cm 3-4 cm 5-6cm Effacement 0-30% 40-50% 60-70% 80% Consistency Firm Medium Soft Station -3 -2 -1,0 +1,+2 Position Posterior Mid Anterior Amniotic Membrane Status: Intact Monitor Mode: External Contraction Frequency(min): none Fetus A Heart Rate Baseline: 130 Monitor Accelerations: 15 X 15 Monitor Decelerations: None Variability: Moderate (6-25 BPM) Presentation: Cephalic Categories: Category I HEENT Exam HEENT Exam: Normal Respiratory Exam Respiratory Exam: Normal Cardiovascular Exam Cardiovascular Exam: Normal Abdominal Exam Abdominal Exam: Normal Exam Exam: Normal Skin Exam Skin Exam: Normal Psychiatric Exam Psychiatric Exam: Normal Risk Assessment Risk for Shoulder Dystocia Historical/Initial OB: POSITIVE FOR: Pre- BMI>30; NEGATIVE FOR: Pelvic Abnormality, Previous Shoulder Dystocia or Previous Macrosomia Risk for Pre-Eclampsia Daily Dose ASA Indicated: Yes Date Initiated/Initials: to start at 12 wks JK Yes, if one or more: NEGATIVE FOR: Hx Pre-E/Gest HTN, Chronic HTN, Multiple Gestation, Pre-gestational DM, Renal Disease, Systemic Lupus or APA Syndrome Yes, if 2 or more: POSITIVE FOR: Nulliparity and BMI>30; NEGATIVE FOR: Age>= 35 yrs, >10yr btwn pregnancies, ethinicty, Mother/Sister w/ Pre-E or Previous IUGR Risk for Post- Hemorrhage Initial: NEGATIVE FOR: Multiple Gestation, Previous PPH, Known Clotting Deficiency, Grand Multiparity or Anticoagulation Risks Reviewed Risks Reviewed Upon Admission: Yes
[2024-07-14] MEDS: Normal Saline Flush 10 ML SYR IVP ×3 (13:45→16:34)
[2024-07-14 13:49] LABS: HCT 41.6 % (36.0-46.0); HGB 13.8 g/dL (11.2-15.7); MCHC 33.2 % (32.0-36.0); MCV 84 fL (80-95); MPV 9.9 fL (8.0-11.0); Platelet Count 258 10^3/uL (130-400); RBC 4.93 10^6/uL (3.93-5.22); RDW 13.8 % (11.7-14.6); RDW-SD 42.4 fL; WBC 10.89 10^3/uL (4.4-10.8)
[2024-07-14 13:50] LABS: Bilirubin Negative (Negative); Blood Trace-intact (Negative); Clarity Clear (Clear); Glucose Negative (Negative); Ketones Negative (Negative); Leukocyte Esterase Negative (Negative); Nitrite Negative (Negative); Urobilinogen 0.2 mg/dL (Up to 0.2)
[2024-07-14] MEDS: Lactated Ringers 1,000 ML 125 ML IV ×2 (13:55→18:37)
[2024-07-14 14:02] LABS: ALT 27 U/L (14-59); AST 20 U/L (15-37); Albumin 2.6 g/dL (3.4-5.0); Alkaline Phosphatase 137 U/L (46-116); Anion Gap 10.8 mmol/L (3-11); BUN 6 mg/dL (7-18); Bilirubin, Total 0.2 mg/dL (0.2-1.0); CO2 23.2 mmol/L (21.0-32.0); CREATININE 0.8 mg/dL (0.55-1.02); Calcium 9.4 mg/dL (8.5-10.1); Chloride 105 mmol/L (98-107); Glucose 90 mg/dL (74-106); Potassium 3.8 mmol/L (3.5-5.1); Sodium 139 mmol/L (136-145); Total Protein 7.1 g/dL (6.4-8.2)
[2024-07-14 14:06] LABS: Bacteria Rare HPF (Negative); C & S Indicated? No; Casts Negative LPF (Negative); Crystals Few Amorphous HPF (Negative); Epithelial Cells Moderate HPF (Negative); Mucus Negative (Negative)
[2024-07-14] MEDS: Ondansetron 4 MG/2 ML VIAL IVP (14:26)
[2024-07-14] MEDS: HYDROmorphone 2 MG/ML SYR 1 MG IVP (14:47)
--- NOTE | 2024-07-14 19:03 | PGE_ITS ---
Date of Service Date of service: 07/14/24 Time of Service: 19:03 Assessment and Plan Assessment and plan (1) Hydronephrosis of right kidney: Status: Acute Assessment and plan: I discussed the anticipated course of hydronephrosis being unpredictable but does not pose a risk to her or her baby at this time. I reviewed her status with Dr Cadena by phone. (2) Right flank pain: Status: Acute Assessment and plan: I discussed pain management with hydronephrosis and kidney stones and procedures available during and after for treating kidney stones including renal stints and lithotripsy. I gave Bindu the option of returning home at this time with extra strength tylenol or staying the night for pain relief if needed. Due to the inavailability of outpatient pharmacy at this time of day, she may have to return if the pain recurs. She is thinking it over and will let me know. (3) Hematuria: Status: Acute Subjective Subjective Patient reports: pain is less Interval history since last seen: Satcy has eaten dinner and is tolerating PO fluids well. She reports that her pain is 3-4 and tolerable. She received one dose of IV dilaudid and has declined PO tylenol for pain. Hearing Screen Coordinator at [facility] available on the weekend and did perform renal US which showed bilateral stones and mild to mod right hydronephrosis. Objective Last Vital Signs Temp 97.9 F 07/14/24 16:30 Pulse 71 07/14/24 16:30 Resp 16 07/14/24 16:30 BP 122/71 07/14/24 16:30 Pulse Ox 69 L 07/14/24 16:30 Laboratory Results - last 24 hr 07/14/24 07/14/24 13:25 13:35 WBC 10.89 H RBC 4.93 Hgb 13.8 Hct 41.6 MCV 84 MCH 28.0 MCHC 33.2 RDW 13.8 Plt Count 258 MPV 9.9 Sodium 139 Potassium 3.8 Chloride 105 Carbon Dioxide 23.2 Anion Gap 10.8 BUN 6 L Creatinine 0.8 Est GFR (CKD-EPI 2020) 104.80 Glucose 90 Calcium 9.4 Total Bilirubin 0.2 AST 20 ALT 27 Alkaline Phosphatase 137 H Total Protein 7.1 Albumin 2.6 L Urine Color Yellow Urine Clarity Clear Urine pH 7.0 Ur Specific [place] 1.020 Urine Protein Negative Urine Ketones Negative Urine Blood Trace-intact H Urine Nitrite Negative Urine Bilirubin Negative Urine Urobilinogen 0.2 Ur Leukocyte Esterase Negative Urine RBC 5-10 H Urine WBC 3-5 Ur Epithelial Cells Moderate Urine Crystals Few Amorphous Urine Bacteria Rare Urine Casts Negative Urine Mucus Negative Ur Culture Indicated? No Urine Glucose Negative ABO/Rh O Positive Antibody Screen NEGATIVE Time Spent with Patient Time Spent with Patient: <25 minutes Time was spent: preparing to see the patient(eg.review tests), obtaining and/or reviewing separately otained hiistory, referring, communicating with other health pharmacist critical care, indepentently interpreting results, counseling the patient and care coordination
--- NOTE | 2024-07-14 21:22 | W.OBNST ---
Date of service: 07/14/24 Time of Service: 19:00 NST Evaluation Reason for NST Reasons for Nonstress Test: OTHER, SEE COMMENT Reason for NST Other: right flank pain Gestational Age Gestational Age in Weeks and Days: 33 Weeks and 6Days Test and Monitor Explained Test/Monitor Explained: Test Explained and Monitor Explained Vital Signs Blood Pressure: 141/85 Pulse: 75 Temperature: 97.9 F NST Information Date on Monitor: 07/14/24 Time on Monitor: 13:08 Date off Monitor: 07/14/24 Time off Monitor: 14:42 Total Time on Monitor: 94 NST Interventions: PO Hydration and IV Fluids NST Evaluation Patient States Movement: Present FHR Baseline: 135 Variability: Moderate 6-25 bpm Decelerations: None Note Ultrasound Done: N/A. NST Note Note: Ally presents with right flank pain associated with vomiting which began yesterday and worsened this morning. Reactive NST., Admitted for IV hydration and pain management. NST Reviewed and Verified by: Naomi Silva
[2024-07-15 05:55] VITALS: BP 122/74; PULSE 70; RESP 16; TEMP 36.7
[2024-07-15 08:45] VITALS: BP 126/81; PULSE 85; PULSE 86; RESP 16; TEMP 36.9; O2SAT 96
[2024-07-15 08:49] VITALS: BP 126/81; PULSE 85; TEMP 36.9
--- NOTE | 2024-07-15 09:30 | PGE_ITS ---
Date of Service Date of service: 07/15/24 Time of Service: 09:30 Assessment and Plan Assessment and plan (1) Bilateral nephrolithiasis: Status: Acute Assessment and plan: A: Hematuria has resolved, pain and nausea/vomiting also resolved Kidney stones seen bilaterally yesterday, may or may not have passed NST reactive today P: Discharge to home today, consult with Dr. Cadena completed Pt to continue straining urine and pushing increased PO fluid intake Call for recurrence of symptoms or is finds she has passed a stone in the strainer Zofran 4 mg ODT q6 hrs prn Rx'ed Keep appt scheduled for the end of the week (2) Hydronephrosis of right kidney: Status: Acute (3) 34 weeks gestation of : Status: Acute Subjective Subjective Interval history since last seen: Pt feels well this morning, no pain or nausea, desires discharge to home Exam Const General: cooperative, healthy appearing, comfortable, no acute distress and well developed Nutritional Appearance: average body habitus and well nourished Orientation: alert, awake and oriented x3 Resp Effort & Inspection: normal respiratory effort and able to speak in complete sentences Cardio Rate: regular rate Rhythm: regular rhythm General: bladder normal to palpation Bimanual Exam- Vagina & Uterus: bladder normal to palpation Back/Spine/Pelvis Back: no CVA tenderness Other: flank pain resolved Skin General skin exam: no rashes or lesions noted and elasticity normal Extrem General: normal to inspection, full ROM and normal gait Psych Mood: congruent mood Affect: normal affect Attitude: cooperative Thought Process: normal Objective Last Vital Signs Temp 98.4 F 07/15/24 08:45 Pulse 85 07/15/24 08:45 Resp 16 07/15/24 08:45 BP 126/81 07/15/24 08:45 Pulse Ox 96 07/15/24 08:45 Laboratory Results - last 24 hr 07/14/24 07/14/24 13:25 13:35 WBC 10.89 H RBC 4.93 Hgb 13.8 Hct 41.6 MCV 84 MCH 28.0 MCHC 33.2 RDW 13.8 Plt Count 258 MPV 9.9 Sodium 139 Potassium 3.8 Chloride 105 Carbon Dioxide 23.2 Anion Gap 10.8 BUN 6 L Creatinine 0.8 Est GFR (CKD-EPI 2020) 104.80 Glucose 90 Calcium 9.4 Total Bilirubin 0.2 AST 20 ALT 27 Alkaline Phosphatase 137 H Total Protein 7.1 Albumin 2.6 L Urine Color Yellow Urine Clarity Clear Urine pH 7.0 Ur Specific [place] 1.020 Urine Protein Negative Urine Ketones Negative Urine Blood Trace-intact H Urine Nitrite Negative Urine Bilirubin Negative Urine Urobilinogen 0.2 Ur Leukocyte Esterase Negative Urine RBC 5-10 H Urine WBC 3-5 Ur Epithelial Cells Moderate Urine Crystals Few Amorphous Urine Bacteria Rare Urine Casts Negative Urine Mucus Negative Ur Culture Indicated? No Urine Glucose Negative ABO/Rh O Positive Antibody Screen NEGATIVE Time Spent with Patient Time Spent with Patient: 25-34 minutes Time was spent: preparing to see the patient(eg.review tests), obtaining and/or reviewing separately otained hiistory, referring, communicating with other health field care coordinator and counseling the patient
[2024-07-15 09:39] VITALS: BP 126/81; PULSE 85; TEMP 36.9
--- NOTE | 2024-07-15 09:39 | W.OBNST ---
Date of service: 07/15/24 Time of Service: 09:39 NST Evaluation Reason for NST Reasons for Nonstress Test: OTHER, SEE COMMENT Reason for NST Other: Kidney Stones Gestational Age Gestational Age in Weeks and Days: 34 Weeks and 0Days Test and Monitor Explained Test/Monitor Explained: Test Explained, Monitor Explained and Patient Verbalized Understanding Vital Signs Blood Pressure: 126/81 Pulse: 85 Temperature: 98.4 F Urine Results Urine Protein: Negative Urine Ketones: Negative Urine Glucose: Negative Urine Blood: Negative NST Information Date on Monitor: 07/15/24 Time on Monitor: 08:45 Date off Monitor: 07/15/24 Time off Monitor: 09:17 Total Time on Monitor: 32 NST Interventions: PO Hydration Contraction Frequency: None NST Evaluation Patient States Movement: Present FHR Baseline: 135 Variability: Moderate 6-25 bpm Accelerations: 15x15 Decelerations: None NST Results: Reactive Note Ultrasound Done: N/A. NST Note NST Reviewed and Verified by: Jemima Henriquez
== END 2024-07-15 09:35 | disposition home or self-care (01) ==
LOC: OBS 13:29
PROVIDERS: Admitting Provider Advanced Practice Midwife; PCP Nurse Practitioner Family; Visit Provider Advanced Practice Midwife
DX: O99.891 Other specified diseases and conditions complicating pregnancy (principal); N13.2 Hydronephrosis with renal and ureteral calculous obstruction; Z3A.34 34 weeks gestation of pregnancy; R31.9 Hematuria, unspecified; R11.2 Nausea with vomiting, unspecified; O99.213 Obesity complicating pregnancy, third trimester; E66.9 Obesity, unspecified
CPT/HCPCS: 59025; 36415; 76770; 80053; 85027; 86850; 86900; 86901; 96360; 96361; 96374; 96375; 81003; 81015; G0378; J1171; J2405

== ENCOUNTER 2024-07-29 15:43 | Outpatient (CLI) | payer BC, SELFPAY ==
[2024-07-29 16:00] VITALS: BP 137/85; PULSE 75
[2024-07-29 16:06] VITALS: BP 137/85; PULSE 75; TEMP 208.6; TEMP 98.1
[2024-07-29 16:23] VITALS: BP 134/94; PULSE 78
[2024-07-29 16:38] VITALS: BP 132/89; PULSE 84
[2024-07-29 16:40] LABS: HCT 39.5 % (36.0-46.0); HGB 13.2 g/dL (11.2-15.7); MCH 27.9 pg (27.0-33.0); MCHC 33.4 % (32.0-36.0); MCV 84 fL (80-95); MPV 10.7 fL (8.0-11.0); Platelet Count 274 10^3/uL (130-400); RBC 4.73 10^6/uL (3.93-5.22); RDW 13.6 % (11.7-14.6); RDW-SD 41.6 fL; WBC 7.77 10^3/uL (4.4-10.8)
--- NOTE | 2024-07-29 16:51 | W.OBNST ---
Date of service: 07/29/24 Time of Service: 16:51 NST Evaluation Reason for NST Reasons for Nonstress Test: GESTATIONAL HYPERTENSION Gestational Age Gestational Age in Weeks and Days: 34 Weeks and 1Days Test and Monitor Explained Test/Monitor Explained: Test Explained, Monitor Explained and Patient Verbalized Understanding Vital Signs Blood Pressure: 137/85 Pulse: 75 Temperature: 208.6 F NST Information Date on Monitor: 07/29/24 Time on Monitor: 15:46 Date off Monitor: 07/29/24 Time off Monitor: 16:44 Total Time on Monitor: 58 NST Interventions: None Contraction Frequency: irritability NST Evaluation Patient States Movement: Present FHR Baseline: 145 Variability: Moderate 6-25 bpm Accelerations: 15x15 Decelerations: None NST Results: Reactive Note Ultrasound Done: N/A. NST Note Note: New dx gHTN, PE normal, no clonus or hyper-reflexivity. PIH labs pending, 36wk growth scan ordered. Discussed future POC and delivery timing with dx gHTN including monitoring and IOL 37-38w6d. BC aware of NST schedule. RTC 08/01 for NST NST Reviewed and Verified by: Rolanda Schmid
[2024-07-29 16:54] VITALS: BP 137/85; PULSE 75; TEMP 208.6; TEMP 98.1
[2024-07-29 16:57] LABS: ALT 24 U/L (14-59); AST 17 U/L (15-37); Albumin 2.4 g/dL (3.4-5.0); Alkaline Phosphatase 142 U/L (46-116); BUN 8 mg/dL (7-18); Bilirubin, Total 0.2 mg/dL (0.2-1.0); CREATININE 0.6 mg/dL (0.55-1.02); Calcium 9.3 mg/dL (8.5-10.1); Chloride 104 mmol/L (98-107); Estimated GFR 127.67 (mL/min/1.73m2); Glucose 82 mg/dL (74-106); Potassium 3.9 mmol/L (3.5-5.1); Sodium 136 mmol/L (136-145); Total Protein 6.6 g/dL (6.4-8.2)
[2024-07-29 18:00] LABS: COMMENT (LAB VIEW ONLY) 55.64 mg/dL; PROTEIN 19.6 mg/dL; Prot/Crea Ur Ratio 0.35
== END 2024-07-29 16:46 ==
LOC: BCD 15:43 → OBS 15:59
PROVIDERS: Advanced Practice Midwife; PCP Nurse Practitioner Family; Visit Provider Family Medicine
DX: Z3A.34 34 weeks gestation of pregnancy (principal); O13.3 Gestational [pregnancy-induced] hypertension without significant proteinuria, third trimester
CPT/HCPCS: 80053; 85027; 59025; 82565; 84156

== ENCOUNTER 2024-07-29 15:45 | Outpatient (REF) | payer BC, SELFPAY | END 2024-07-29 15:46 | disposition home or self-care (01) | LOC: LBN 15:45 | PROVIDERS: PCP Nurse Practitioner Family; Visit Provider Advanced Practice Midwife | DX: Z34.93 Encounter for supervision of normal pregnancy, unspecified, third trimester (principal); Z3A.36 36 weeks gestation of pregnancy | CPT/HCPCS: 87081 ==

== ENCOUNTER 2024-07-31 00:35 | Outpatient (CLI) | payer BC, SELFPAY ==
--- NOTE | 2024-07-31 07:30 | DI.US_ITS ---
Exam(s) US OB BIOPHYSICAL PROFILE US OB QING WEIGHT EXAM: US OB QING WEIGHT CLINICAL HISTORY: EFW+BPP,gest hypertension,O13.9. TECHNIQUE: Transabdominal obstetrical ultrasound performed. COMPARISON: US US OB 2-3 TRIMESTER from 04/12/2024 US US RENAL from 07/14/2024 US US OB BIOPHYSICAL PROFILE from 07/31/2024 FINDINGS:: Number of fetuses: 1 position: CEPHALIC, spine anterior. Placental location: ANTERIOR, grade 1-2 no evidence of previa. BIOMETRIC DATA: BPD: 9.4cm, 38weeks 2days HC: 33.28cm, 38weeks AC: 32.47cm, 36weeks 3days FL: 7.14cm, 36weeks 4days EFW: 3,040.72g, 6lb 11.35oz, 67.5% Composite Age: 37weeks 2days SENDY: 08/19/2024 Heart Rate: 149bpm Amniotic fluid index: 11.05cm. Lower range of normal. Largest pocket 5 cm Biophysical profile: QING-2/2 Respiration-2/2 Body flexion and extension-2/2 Extremity flexion and extension 2/2 Total score 8/8 IMPRESSION: size and weight are within the expected range. QING is low at the lower lower range of normal. Normal biophysical profile score 8 of 8. DATA REPOSITORY:
== END 2024-07-31 00:55 ==
LOC: DI 00:37
PROVIDERS: PCP Nurse Practitioner Family; Visit Provider Advanced Practice Midwife
DX: O13.3 Gestational [pregnancy-induced] hypertension without significant proteinuria, third trimester (principal); Z3A.38 38 weeks gestation of pregnancy
CPT/HCPCS: 76815; 76816; 76819

== ENCOUNTER 2024-08-01 07:43 | Outpatient (REF) | payer BC, SELFPAY ==
[2024-08-01 09:43] LABS: PROTEIN 11.4 mg/dL (0.0-11.9)
[2024-08-01 09:44] LABS: Total Volume 2105 ml
== END 2024-08-01 07:44 | disposition home or self-care (01) ==
LOC: LBN 07:43
PROVIDERS: PCP Nurse Practitioner Family; Visit Provider Advanced Practice Midwife
DX: O13.9 Gestational [pregnancy-induced] hypertension without significant proteinuria, unspecified trimester (principal)
CPT/HCPCS: 81050; 84155

== ENCOUNTER 2024-08-01 08:10 | Outpatient (CLI) | payer BC, SELFPAY ==
[2024-08-01] VITALS (8 sets, daily range): BP systolic 127–151; BP diastolic 75–101; PULSE 78–84; TEMP 36.5
[2024-08-01 15:11] LABS: HCT 36.7 % (36.0-46.0); HGB 12.5 g/dL (11.2-15.7); MCHC 34.1 % (32.0-36.0); MCV 82 fL (80-95); MPV 10.8 fL (8.0-11.0); Platelet Count 228 10^3/uL (130-400); RBC 4.47 10^6/uL (3.93-5.22); RDW 13.8 % (11.7-14.6); RDW-SD 40.8 fL; WBC 9.29 10^3/uL (4.4-10.8)
[2024-08-01 15:33] LABS: ALT 21 U/L (14-59); AST 17 U/L (15-37); Albumin 2.4 g/dL (3.4-5.0); Alkaline Phosphatase 146 U/L (46-116); Anion Gap 9.6 mmol/L (3-11); BUN 7 mg/dL (7-18); Bilirubin, Total 0.2 mg/dL (0.2-1.0); CO2 23.4 mmol/L (21.0-32.0); CREATININE 0.6 mg/dL (0.55-1.02); Calcium 9.5 mg/dL (8.5-10.1); Chloride 106 mmol/L (98-107); Estimated GFR 127.67 (mL/min/1.73m2); Glucose 115 mg/dL (74-106); Potassium 3.7 mmol/L (3.5-5.1); Sodium 139 mmol/L (136-145); Total Protein 6.3 g/dL (6.4-8.2)
[2024-08-01] MEDS: Labetalol 100 MG TAB 200 MG PO (16:00)
--- NOTE | 2024-08-01 16:57 | W.OBNST ---
Date of service: 08/01/24 Time of Service: 16:57 NST Evaluation Reason for NST Reasons for Nonstress Test: GESTATIONAL HYPERTENSION Gestational Age Gestational Age in Weeks and Days: 36 Weeks and 3Days Test and Monitor Explained Test/Monitor Explained: Test Explained and Monitor Explained Vital Signs Blood Pressure: 138/89 Pulse: 78 Temperature: 97.7 F Urine Results Urine Protein: Negative Urine Ketones: Negative Urine Glucose: Negative Urine Blood: Negative NST Information Date on Monitor: 08/01/24 Time on Monitor: 14:49 Date off Monitor: 08/01/24 Time off Monitor: 15:48 Total Time on Monitor: 59 NST Interventions: PO Hydration NST Evaluation Patient States Movement: Present FHR Baseline: 135 Variability: Moderate 6-25 bpm Accelerations: 15x15 Decelerations: None NST Results: Reactive Note Ultrasound Done: N/A. NST Note Note: Started on labetalol 200 mg PO BID, will return in 2 days for BP check IOL scheduled for 08/05, (@ 37 wks) NST Reviewed and Verified by: Jemima Henriquez
== END 2024-08-01 16:42 ==
LOC: BCD 08:12 → OBS 14:43
PROVIDERS: PCP Nurse Practitioner Family; Visit Provider Advanced Practice Midwife
DX: O13.3 Gestational [pregnancy-induced] hypertension without significant proteinuria, third trimester (principal); Z3A.36 36 weeks gestation of pregnancy
CPT/HCPCS: 36415; 80053; 85027; 59025

== ENCOUNTER 2024-08-03 07:15 | Outpatient (CLI) | payer BC, SELFPAY ==
[2024-08-03 08:51] VITALS: BP 134/88; PULSE 99; TEMP 36.6
[2024-08-03 09:00] VITALS: BP 134/88; PULSE 99; TEMP 36.6
--- NOTE | 2024-08-03 11:19 | W.OBNST ---
Date of service: 08/03/24 Time of Service: 11:19 NST Evaluation Reason for NST Reasons for Nonstress Test: GESTATIONAL HYPERTENSION Gestational Age Gestational Age in Weeks and Days: 36 Weeks and 5Days Test and Monitor Explained Test/Monitor Explained: Test Explained, Monitor Explained and Patient Verbalized Understanding Vital Signs Blood Pressure: 134/88 Pulse: 99 Temperature: 97.9 F Urine Results Urine Protein: Positive Urine Ketones: Negative Urine Glucose: Negative Urine Blood: Negative NST Information Date on Monitor: 08/03/24 Time on Monitor: 08:55 Date off Monitor: 08/03/24 Time off Monitor: 09:23 Total Time on Monitor: 28 NST Interventions: PO Hydration and Notify Provider NST Evaluation Patient States Movement: Present FHR Baseline: 140 Variability: Moderate 6-25 bpm Accelerations: 15x15 Decelerations: None NST Results: Reactive Note Ultrasound Done: N/A. NST Note Note: IOL scheduled 08/05 for preeclampsia. SVE 2/-3, membrane sweep done. Disussed IOL methods and timeline. NST Reviewed and Verified by: Rolanda Schmid
[2024-08-03 11:20] VITALS: BP 134/88; PULSE 99; TEMP 36.6
== END 2024-08-03 09:54 ==
LOC: BCD 07:35 → OBS 08:52
PROVIDERS: PCP Nurse Practitioner Family; Visit Provider Advanced Practice Midwife
DX: O13.3 Gestational [pregnancy-induced] hypertension without significant proteinuria, third trimester (principal); Z3A.36 36 weeks gestation of pregnancy
CPT/HCPCS: 59025

== ENCOUNTER 2024-08-05 07:45 | Inpatient (IN) | payer BC, SELFPAY ==
[2024-08-05] VITALS (92 sets, daily range): BP systolic 117–192; BP diastolic 64–102; PULSE 66–152; RESP 16–20; TEMP 36.5–37; O2SAT 88–100; BMI 41.1
[2024-08-05] MEDS: miSOPROStol 25 MCG TAB PO ×2 (09:05→13:34)
[2024-08-05 09:41] LABS: HCT 36.6 % (36.0-46.0); HGB 12.5 g/dL (11.2-15.7); MCH 28.3 pg (27.0-33.0); MCHC 34.2 % (32.0-36.0); MCV 83 fL (80-95); MPV 10.9 fL (8.0-11.0); Platelet Count 232 10^3/uL (130-400); RBC 4.42 10^6/uL (3.93-5.22); RDW-SD 42.1 fL; WBC 7.44 10^3/uL (4.4-10.8)
[2024-08-05 10:12] LABS: ALT 28 U/L (14-59); AST 23 U/L (15-37); Albumin 2.4 g/dL (3.4-5.0); Alkaline Phosphatase 151 U/L (46-116); Anion Gap 7.9 mmol/L (3-11); BUN 8 mg/dL (7-18); Bilirubin, Total 0.2 mg/dL (0.2-1.0); CO2 22.1 mmol/L (21.0-32.0); CREATININE 0.6 mg/dL (0.55-1.02); Calcium 9.1 mg/dL (8.5-10.1); Chloride 104 mmol/L (98-107); Estimated GFR 127.67 (mL/min/1.73m2); Glucose 120 mg/dL (74-106); Potassium 3.9 mmol/L (3.5-5.1); Sodium 134 mmol/L (136-145); Total Protein 6.4 g/dL (6.4-8.2)
--- NOTE | 2024-08-05 11:39 | W.PM.OBHPL1 ---
Date of service: 08/05/24 Time of Service: 08:00 Assessment and Plan Assessment and plan (1) GBS (group B Streptococcus carrier), +RV culture, currently : Status: Acute (2) Pre-eclampsia affecting , antepartum: Status: Acute OB-HPI Labor/Delivery History of Present Illness Reason for Visit: Pre-eclampsia Chief Complaint: Scheduled Induction of Labor Indication for Induction: PreEclampsia. SENDY Calculator Estimated Delivery Date Method Current WG Current Estimate 08/26/24 LMP (Certain) 37w 0d Other Estimates 08/27/24 Ultrasound #1 36w 6d Comments: Stacy is a 24-year-old at 37+0 confirmed by 1st trimester ultrasound here for induction of labor secondary to pre-eclampsia. She is feeling well, denies LOF, VB and endorses movement. She denies headache, visual disturbance and RUQ pain. She took her a.m. dose of 200 mg PO Labetalol prior to her arrival to L&D this morning. History of Present Expected Delivery Route/Plan - CNM FOB - Morgan Riff (first child) BG- Petey Mora for labor support. GBS POSITIVE, plan PCN prophylaxis in labor IOL for gHTN 08/05/24 Specific Issues/Plan 1. BMI 39, early glucola 140; 3 hr GTT- 89, 132, 120, 101, repeat 3-hr GTT at 28 weeks 2hr reading 157, RD consult accepted 2. cfDNA - low risk, CF neg, SMA- neg, normal 20wk U/S, ant placenta 4. Low dose ASA for nulliparity and elevated BMI 5. left hip pain- sciatica, used heat and ice. 04/22: improved 6. Discomfort with urination - urinalysis neg and glucosuria noted - Hgb A1C 5.4 7. 07/05/24 elevated BP without dx HTN, labs WNL p:C 0.13. rNST 8. History of right kidney stone 2018 - Admitted to center with right flank pain and hematuria 07/14, renal US shows right mild-mod hydronephrosis. Bilateral kidney stones. 9. Preeclampsia @ 36+0. P:C 0.35; 24 hr urine total [id number] 9a. At 36 wks: EFW in 67th percentile, QING=11, cephalic presentation, Bi-weekly NST IOL 37 (5/12 AM) Informed Consent Informed Consent: Induction of Labor and Risk,Benefits,Alternatives Discussed Review of Systems All systems reviewed & are unremarkable except as noted in HPI and below Constitutional Constitutional: Reports as per HPI Cardiovascular Cardiovascular: Reports as per HPI Respiratory Respiratory: Reports as per HPI Gastrointestinal Gastrointestinal: Reports as per HPI Genitourinary Genitourinary: Reports as per HPI Musculoskeletal Musculoskeletal: Reports as per HPI Psychiatric Psychiatric: Reports as per HPI PFSH All Active Problems (Updated 08/05/24 @ 11:53 by Ghazala Rodgers CNM) Pre-eclampsia affecting , antepartum (Acute) GBS (group B Streptococcus carrier), +RV culture, currently (Acute) Gestational hypertension (Acute) Bilateral nephrolithiasis (Acute) Hydronephrosis of right kidney (Acute) Obesity (BMI 35.0-39.9 without comorbidity) (Acute) (Acute) Medical History (Updated 08/05/24 @ 11:53 by Ghazala Rodgers CNM) Elevated glucose Dysuria Glucosuria Right flank pain Hematuria Kidney stones 2018 [facility] Ed Date of last menstrual period (LMP) unknown Missed menses Surgical History (Updated 12/25/23 @ 15:01 by Naomi Silva CNM) S/P appendectomy Tooth extraction extractions Family History (Updated 12/25/23 @ 15:02 by Naomi Silva CNM) Mother Essential hypertension Brother Asthma Brother Asthma outgrown Maternal Grandfather Diabetes Heart disease Social History Smoking/Tobacco Use Status: Never Smoking risk assessment performed?: Yes Alcohol Intake: never Drug use: Never Substance use type: does not use Housing: house Do you feel safe at home: Yes Do you feel safe in your relationship?: Yes History History 2 Para 0 Hx # Term Pregnancies 0 Multiple births 0 Hx # Pregnancies 0 Ectopic pregnancies 0 AB induced 1 Hx Number of Living Children 0 AB spontaneous 0 Meds Allergies and Home Medications Allergies Allergy/AdvReac Type Severity Reaction Status Date / Time No Known Allergies Allergy Verified 07/29/24 14:55 Home Medications ?Medication ?Instructions ?Recorded ?Confirmed ?Type vits no.126-ferrous fum 1 tab PO DAILY 12/25/23 08/01/24 History 28 mg iron-folic acid 800 mcg tablet (Classic ) aspirin 81 mg tablet,delayed 81 mg PO DAILY #90 tabs 02/09/24 08/01/24 Rx release pantoprazole 40 mg tablet,delayed 40 mg PO DAILY #30 tabs 03/25/24 08/01/24 Rx release (Protonix) labetalol 200 mg tablet 200 mg PO BID #30 tabs 08/01/24 08/01/24 Rx Exam Physical Exam Vital signs: Temp Pulse Resp BP Pulse Ox 98.1 F 84 18 129/81 97 08/05/24 11:24 08/05/24 11:24 08/05/24 11:24 08/05/24 11:24 08/05/24 11:24 Constitutional Constitutional: no acute distress Detailed Labor and Delivery Exam Dilation: 2 Effacement (%): 70 station: -2 Cervix position: mid Consistency: medium Gupta Score: Cervical Points Exam 0 1 2 3 Dilation Closed 1-2cm 3-4 cm 5-6cm Effacement 0-30% 40-50% 60-70% 80% Consistency Firm Medium Soft Station -3 -2 -1,0 +1,+2 Position Posterior Mid Anterior Amniotic Membrane Status: Intact Fetus A Heart Rate Baseline: 140 Monitor Accelerations: Present Monitor Decelerations: None Variability: Moderate (6-25 BPM) Presentation: Cephalic Categories: Category I Est. Weight: 8 lb Respiratory Exam Respiratory Exam: Normal (Unlabored breathing on room air.) Cardiovascular Exam Cardiovascular Exam: Normal Detail Cardiovascular Exam Comments: Regular Rate. Abdominal Exam Abdominal Exam: Normal (Appropriately gravid. Non-Tender. EFW 8 lbs.) Exam Exam: Normal Extremities Exam Extremities Exam: Abnormal (1+ Edema bilaterally.) Results Results Group Beta Strep: Positive Blood Type: O+ Rubella Status: Immune Varicella Immunity: Immune Abnormal Lab Findings: Abnormal Labs 08/05/24 09:28 Sodium 134 L Glucose 120 H Alkaline Phosphatase 151 H Albumin 2.4 L Risk Assessment Risk for Shoulder Dystocia Historical/Initial OB: POSITIVE FOR: Pre- BMI>30; NEGATIVE FOR: Pelvic Abnormality, Previous Shoulder Dystocia or Previous Macrosomia Risk for Pre-Eclampsia Date Initiated/Initials: to start at 12 wks JK Yes, if one or more: NEGATIVE FOR: Hx Pre-E/Gest HTN, Chronic HTN, Multiple Gestation, Pre-gestational DM, Renal Disease, Systemic Lupus or APA Syndrome Yes, if 2 or more: POSITIVE FOR: Nulliparity and BMI>30; NEGATIVE FOR: Age>= 35 yrs, >10yr btwn pregnancies, ethinicty, Mother/Sister w/ Pre-E or Previous IUGR Risk for Post- Hemorrhage Initial: NEGATIVE FOR: Multiple Gestation, Previous PPH, Known Clotting Deficiency, Grand Multiparity or Anticoagulation
[2024-08-05] MEDS: Penicillin G POT. 5,000,000 UNITS in Normal Saline 100 ML 200 UNITS IVPB (13:16)
[2024-08-05] MEDS: Lactated Ringers 1,000 ML 125 ML IV (13:16)
[2024-08-05] MEDS: Oxytocin/Normal Saline 30 UNITS/500 ML BAG IV (13:30)
[2024-08-05] MEDS: Normal Saline 100 ML 200 ML (13:33)
--- NOTE | 2024-08-05 13:41 | ANES.PREOP_ITS ---
General Info Date of Service Date Performed: 08/05/24 Height: 5 ft 5 in Weight: 112.037 kg Body Mass Index (BMI): 41.1 Meds Allergies and Home Medications Allergies Allergy/AdvReac Type Severity Reaction Status Date / Time No Known Allergies Allergy Verified 07/29/24 14:55 Home Medication ?Medication ?Instructions ?Recorded vits no.126-ferrous fum 1 tab PO DAILY 12/25/23 28 mg iron-folic acid 800 mcg tablet (Classic ) aspirin 81 mg tablet,delayed 81 mg PO DAILY #90 tabs 02/09/24 release pantoprazole 40 mg tablet,delayed 40 mg PO DAILY #30 tabs 03/25/24 release (Protonix) labetalol 200 mg tablet 200 mg PO BID #30 tabs 08/01/24 Current Visit Medications: Current Medications Generic Name Dose Route Start Last Admin Trade Name Freq PRN Reason Stop Dose Admin Hydralazine HCl 0 mg 08/05/24 09:00 Hydralazine 20 Mg/Ml Vial IVP DIRECTED [facility] Penicillin G Potassium 3,000, 50 mls @ 100 mls/hr 08/05/24 13:00 000 units/ Sodium Chloride IVPB Q4H KLEBER Ringer's Solution 1,000 mls @ 125 mls/hr 08/06/24 06:00 IV INFUSION KLEBER Ringer's Solution 1,000 mls @ 125 mls/hr 08/05/24 09:00 08/05/24 13:16 IV 125 mls/hr INFUSION KLEBER Administration IV Miscellaneous Supplies 1 each 08/05/24 08:45 Iv Access IV DIRECTED [facility] Labetalol HCl 200 mg 08/05/24 08:30 08/05/24 10:35 Labetalol 100 Mg Tab PO Not Given BID [facility] Labetalol HCl 0 mg 08/05/24 09:00 Labetalol 100 Mg/20 Ml Vial IVP DIRECTED [facility] Misoprostol 25 mcg 08/05/24 09:05 08/05/24 09:05 Misoprostol 25 Mcg Tab PO 25 mcg Q4H PRN PRN Administration Nifedipine 0 mg 08/05/24 09:00 Nifedipine 10 Mg Cap PO DIRECTED [facility] Pantoprazole Sodium 40 mg 08/05/24 07:30 08/05/24 10:35 Pantoprazole 40 Mg Tabcr PO Not Given DAILY@0730 [facility] Multivitamins 1 tab 08/05/24 20:00 Multivitamin W/Ca,Fe Tab PO QPM KLEBER Sodium Chloride 0 ml 08/05/24 08:42 Normal Saline Flush 10 Ml Syr IVP PRN PRN Sodium Chloride 0 ml 08/05/24 20:00 Normal Saline Flush 10 Ml Syr IVP BID KLEBER Sodium Chloride 0 ml 08/05/24 08:42 Normal Saline 10 Ml Vial IJ DIRECTED PRN Terbutaline Sulfate 0.25 mg 08/05/24 08:42 Terbutaline 1 Mg/Ml Vial SC PRN PRN Zolpidem Tartrate 10 mg 08/05/24 21:00 Zolpidem 5 Mg Tab PO 08/06/24 06:00 2100 KLEBER PFSH Active Problems Active Problems: Problem Status Onset Code Pre-eclampsia affecting , antepartum Acute O14.90 GBS (group B Streptococcus carrier), +RV culture, currently Acute O99.820 Gestational hypertension Acute O13.9 Bilateral nephrolithiasis Acute N20.0 Hydronephrosis of right kidney Acute N13.30 Obesity (BMI 35.0-39.9 without comorbidity) Acute E66.9 Acute Z34.90 Medical History Medical History (Updated 08/05/24 @ 11:53 by Ghazala Rodgers CNM) Elevated glucose Dysuria Glucosuria Right flank pain Hematuria Kidney stones 2018 [facility] Ed Date of last menstrual period (LMP) unknown Missed menses Surgical History Surgical History (Updated 12/25/23 @ 15:01 by Naomi Silva CNM) S/P appendectomy Tooth extraction extractions Tobacco Smoking/Tobacco Use Status: Never Alcohol Alcohol Intake: never Substance Use Substance use: Never Substance use type: does not use Prental History History 2 2 Para 0 Hx # Term Pregnancies 0 Multiple births 0 Hx # Pregnancies 0 Ectopic pregnancies 0 AB induced 1 Hx Number of Living Children 0 AB spontaneous 0 Vital Signs and Lab Results Vital Signs Most Recent Vital Signs in EMR: Most Recent Vital Signs Temp Pulse Resp BP Pulse Ox 36.7 C 84 18 129/81 97 08/05/24 11:24 08/05/24 11:24 08/05/24 11:24 08/05/24 11:24 08/05/24 11:24 Lab Results 08/05/24 09:28 08/05/24 09:28 Blood Type / Crossmatch: 2 Antibody Screen NEGATIVE 08/05/24 Complete Blood Count: 2 White Blood Count 7.44 10^3/uL (4.4-10.8) 08/05/24 09: Red Blood Count 4.42 10^6/uL (3.93-5.22) 08/05/24 09: Hemoglobin 12.5 g/dL (11.2-15.7) 08/05/24 09: Hematocrit 36.6 % (36.0-46.0) 08/05/24 09: Platelet Count 232 10^3/uL (130-400) 08/05/24 09: Complete Metabolic Panel: 2 Sodium 134 mmol/L (136-145) L 08/05/24 09: Potassium 3.9 mmol/L (3.5-5.1) 08/05/24 09: Chloride 104 mmol/L (98-107) 08/05/24 09: Carbon Dioxide 22.1 mmol/L (21.0-32.0) 08/05/24 09: BUN 8 mg/dL (7-18) 08/05/24 09: Creatinine 0.6 mg/dL (0.55-1.02) 08/05/24 09: Est GFR (CKD-EPI 2020) 127.67 (mL/min/1.73m2) 08/05/24 09: Calcium 9.1 mg/dL (8.5-10.1) 08/05/24 09: Albumin 2.4 g/dL (3.4-5.0) L 08/05/24: Glucose 120 mg/dL (74-106) H 08/05/24 09:28 Liver Function Panel: 2 Alanine Aminotransferase (ALT/SGPT) 28 U/L (14-59) 08/05/24 09: 28 Aspartate Amino Transf (AST/SGOT) 23 U/L (15-37) 08/05/24:28 Coagulation Panel: 2 No Data to Display Cardiac Panel: 2 No Data to Display Arterial Blood Gas: 2 No Data to Display Venous Blood Gas: 2 No Data to Display Pancreas Panel: 2 No Data to Display Thyroid Panel: 2 No Data to Display Infectious Disease: 2 No Data to Display Blood Cultures: 2 No Data to Display Toxicology Panel: 2 No Data to Display Panel: 2 No Data to Display Anesthesia Assessment and Plan Anesthesia History Personal History: No History of Anesthesia Complications Family History: No Family History of Anesthesia Complications Exercise Tolerance Exercise Tolerance: Metabolic Equivalents>4 Pertinent Negatives Pertinent Negatives: No Symptoms of GERD, No Major Cardiovascular Symptoms or Complaints and No Major Pulmonary Symptoms or Complaints Cardiac & Pulmonary Exam Cardiac Exam: Normal S1/S2 Heart Sounds Pulmonary Exam: Clear Bilateral Breath Sounds Implantable Cardiac Device Does patient have a Pacemaker or an ICD?: No Airway Exam Known Difficult Airway: No Mallampati Class: 2 Mouth Opening: Normal (> 3cm) Thyromental Distance: Greater than 3 cm Neck Range of Motion: Full ROM Neck Circumference: Normal Teeth Condition: Normal Dentition ASA Classification ASA Score: ASA 3 Emergency Case?: No NPO Status NPO Status: NPO Clears >2 hours, Solids >8 hours Status Status: Confirmed Anesthesia Plan Resuscitation Status: Full Code Anesthesia Technique: Epidural Anesthesia Airway Planned: Natural Airway Monitors Used: Standard Monitors
--- NOTE | 2024-08-05 14:19 | HPE_ITS ---
Date of service: 08/05/24 Time of Service: 08:00 Assessment and Plan Assessment and plan (1) Encounter for induction of labor: Start date: 08/05/24 Status: Acute Assessment and plan: 24-year-old at 37+0 here for induction of labor secondary to pre-eclampsia without severe features. Initial Exam /-2. Will start IOL with Muniz & Misoprostol. Pitocin & AROM when able. Continuous EFM per protocol. Pain Management: Patient would like to use hydrotherapy for as long as possible. Possibly epidural. Will plan for anesthesia consult later today. Fetus: Cat 1. Global: Rh+, GBS+, Fetus 67th%ile at 36 weeks (EFW 8 lbs by Monica), anterior placenta (2) Pre-eclampsia affecting , antepartum: Status: Acute Assessment and plan: Continue home Labetalol 200 mg BID. Assess BPs per protocol. Rescue anti-hypertensives ordered PRN. Judicious use of Methergine. (3) GBS (group B Streptococcus carrier), +RV culture, currently : Status: Acute Assessment and plan: Initiate PCN per protocol with Pitocin or ROM (4) Obesity (BMI 35.0-39.9 without comorbidity): Status: Acute (5) Impaired glucose in , antepartum: Status: Acute Assessment and plan: Shoulder precautions at delivery. OB-HPI Labor/Delivery History of Present Illness Reason for Visit: Pre-eclampsia Chief Complaint: Scheduled Induction of Labor Indication for Induction: PreEclampsia. SENDY Calculator Estimated Delivery Date Method Current WG Current Estimate 08/26/24 LMP (Certain) 37w 0d Other Estimates 08/27/24 Ultrasound #1 36w 6d History of Present Expected Delivery Route/Plan - CNM FOB - Morgan Riff (first child) BG- Petey Morgan for labor support. GBS POSITIVE, plan PCN prophylaxis in labor IOL for gHTN 08/05/24 Specific Issues/Plan 1. BMI 39, early glucola 140; 3 hr GTT- 89, 132, 120, 101, repeat 3-hr GTT at 28 weeks 2hr reading 157, RD consult accepted 2. cfDNA - low risk, CF neg, SMA- neg, normal 20wk U/S, ant placenta 4. Low dose ASA for nulliparity and elevated BMI 5. left hip pain- sciatica, used heat and ice. 04/22: improved 6. Discomfort with urination - urinalysis neg and glucosuria noted - Hgb A1C 5.4 7. 4/02/18 elevated BP without dx HTN, labs WNL p:C 0.13. rNST 8. History of right kidney stone 2018 - Admitted to center with right flank pain and hematuria 07/14, renal US shows right mild-mod hydronephrosis. Bilateral kidney stones. 9. Preeclampsia @ 36+0. P:C 0.35; 24 hr urine total [id number] 9a. At 36 wks: EFW in 67th percentile, QING=11, cephalic presentation, Bi- weekly NST IOL 37 (5/12 AM) Review of Systems Constitutional Constitutional: Reports as per HPI PFSH All Active Problems (Updated 08/05/24 @ 14:39 by Ghazala Rodgers CNM) Impaired glucose in , antepartum (Acute) Encounter for induction of labor (Acute) Pre-eclampsia affecting , antepartum (Acute) GBS (group B Streptococcus carrier), +RV culture, currently (Acute) Gestational hypertension (Acute) Bilateral nephrolithiasis (Acute) Hydronephrosis of right kidney (Acute) Obesity (BMI 35.0-39.9 without comorbidity) (Acute) (Acute) Medical History (Updated 08/05/24 @ 14:39 by Ghazala Rodgers CNM) Elevated glucose Dysuria Glucosuria Right flank pain Hematuria Kidney stones 2018 [facility] Date of last menstrual period (LMP) unknown Missed menses Surgical History (Updated 12/25/23 @ 15:01 by Naomi Silva CNM) S/P appendectomy Tooth extraction extractions Family History (Updated 12/25/23 @ 15:02 by Naomi Silva CNM) Mother Essential hypertension Brother Asthma Brother Asthma outgrown Maternal Grandfather Diabetes Heart disease Social History Smoking/Tobacco Use Status: Never Smoking risk assessment performed?: Yes Alcohol Intake: never Drug use: Never Substance use type: does not use Housing: house Do you feel safe at home: Yes Do you feel safe in your relationship?: Yes History History 2 Para 0 Hx # Term Pregnancies 0 Multiple births 0 Hx # Pregnancies 0 Ectopic pregnancies 0 AB induced 1 Hx Number of Living Children 0 AB spontaneous 0 Meds Allergies and Home Medications Allergies Allergy/AdvReac Type Severity Reaction Status Date / Time No Known Allergies Allergy Verified 07/29/24 14:55 Home Medications ?Medication ?Instructions ?Recorded ?Confirmed ?Type vits no.126-ferrous fum 1 tab PO DAILY 12/25/23 08/01/24 History 28 mg iron-folic acid 800 mcg tablet (Classic ) aspirin 81 mg tablet,delayed 81 mg PO DAILY #90 tabs 02/09/24 08/01/24 Rx release pantoprazole 40 mg tablet,delayed 40 mg PO DAILY #30 tabs 03/25/24 08/01/24 Rx release (Protonix) labetalol 200 mg tablet 200 mg PO BID #30 tabs 08/01/24 08/01/24 Rx Exam Physical Exam Vital signs: Temp Pulse Resp BP Pulse Ox 98.1 F 87 18 135/84 97 08/05/24 11:24 08/05/24 13:48 08/05/24 11:24 08/05/24 13:48 08/05/24 13:48 Constitutional Constitutional: no acute distress Detailed Labor and Delivery Exam Gupta Score: Cervical Points Exam 0 1 2 3 Dilation Closed 1-2cm 3-4 cm 5-6cm Effacement 0-30% 40-50% 60-70% 80% Consistency Firm Medium Soft Station -3 -2 -1,0 +1,+2 Position Posterior Mid Anterior Respiratory Exam Respiratory Exam: Normal (Unlabored breathing on room air.) Detail Cardiovascular Exam Comments: Regular rate. Abdominal Exam Abdominal Exam: Normal (Gravid, Non-Tender. EFW 8 lbs.) Exam Exam: Normal Extremities Exam Extremities Exam: Normal Results Results Group Beta Strep: Positive Blood Type: O+ Rubella Status: Immune Varicella Immunity: Immune Abnormal Lab Findings: Abnormal Labs 08/05/24 09:28 Sodium 134 L Glucose 120 H Alkaline Phosphatase 151 H Albumin 2.4 L Risk Assessment Risk for Shoulder Dystocia Historical/Initial OB: POSITIVE FOR: Pre- BMI>30; NEGATIVE FOR: Pelvic Abnormality, Previous Shoulder Dystocia or Previous Macrosomia Risk for Pre-Eclampsia Date Initiated/Initials: to start at 12 wks JK Yes, if one or more: NEGATIVE FOR: Hx Pre-E/Gest HTN, Chronic HTN, Multiple Gestation, Pre-gestational DM, Renal Disease, Systemic Lupus or APA Syndrome Yes, if 2 or more: POSITIVE FOR: Nulliparity and BMI>30; NEGATIVE FOR: Age>= 35 yrs, >10yr btwn pregnancies, ethinicty, Mother/Sister w/ Pre-E or Previous IUGR Risk for Post- Hemorrhage Initial: NEGATIVE FOR: Multiple Gestation, Previous PPH, Known Clotting Defici ency, Grand Multiparity or Anticoagulation Risks Reviewed Risks Reviewed Upon Admission: Yes
--- NOTE | 2024-08-05 14:48 | W.PM.OBNL1 ---
Date of service: 08/05/24 Time of Service: 15:08 Informed Consent Informed Consent: Induction of Labor Contractions Monitor Mode: External Contraction Frequency(min): 2-3 mins Contraction Duration(sec): 30-45 seconds Intensity: Mild Fetus A Monitor: External (US) Heart Rate Baseline: 145 Presentation: Cephalic Variability: Moderate (6-25 BPM) Categories: Category I FHR Rhythm: Regular Accelerations: 15 X 15 Decelerations: None Amniotic Membrane Status: Intact Assessment Note: Cat 1 Assessment and Plan Assessment and plan (1) Encounter for induction of labor: Status: Acute Assessment and plan: 24 year-old at 37+0 here for IOL 2/2 PEC w/o SF, yimi on Pitocin, not yet in labor Labor: s/p Muniz which spontaneously was expelled at 3-4 cm, 1 dose Miso, Pitocin titration to max 6 Mu/min. Continue Pitocin titration, AROM with regular contraction pattern. Pain: s/p anesthesia consult. Plans hydrotherapy, possibly epidural. Fetus: Cat 1 (2) Pre-eclampsia affecting , antepartum: Status: Acute Assessment and plan: Normotensive since episode of N/V and severe cramping with Muniz. Will continue to Monitor Judicious use of Methergine. (3) GBS (group B Streptococcus carrier), +RV culture, currently : Status: Acute Assessment and plan: Continue PCN Ppx per protocol. Next does due at 18:00. (4) Impaired glucose in , antepartum: Status: Acute Assessment and plan: Shoulder precautions at delivery. Objective Abnormal lab results 08/05/24 Range/Units 09:28 Sodium 134 L (136-145) mmol/L Glucose 120 H (74-106) mg/dL Alkaline Phosphatase 151 H (46-116) U/L Albumin 2.4 L (3.4-5.0) g/dL Temp Pulse Resp BP Pulse Ox 98.1 F 87 18 135/84 97 08/05/24 11:24 08/05/24 13:48 08/05/24 11:24 08/05/24 13:48 08/05/24 13:48 Laboratory Results WBC 7.44 10^3/uL (4.4-10.8) 08/05/24 09:28 RBC 4.42 10^6/uL (3.93-5.22) 08/05/24: Hgb 12.5 g/dL (11.2-15.7) 08/05/24: Hct 36.6 % (36.0-46.0) 08/05/24 MCV 83 fL (80-95) 08/05/24: MCH 28.3 pg (27.0-33.0) 08/05/24 MCHC 34.2 % (32.0-36.0) 08/05/24 RDW 14.0 % (11.7-14.6) 08/05/24: Plt Count 232 10^3/uL (130-400) 08/05/24 MPV 10.9 fL (8.0-11.0) 08/05/24: Sodium 134 mmol/L (136-145) L 08/05/24: Potassium 3.9 mmol/L (3.5-5.1) 08/05/24 Chloride 104 mmol/L (98-107) 08/05/24: Carbon Dioxide 22.1 mmol/L (21.0-32.0) 08/05/24 Anion Gap 7.9 mmol/L (3-11) 08/05/24 BUN 8 mg/dL (7-18) 08/05/24: Creatinine 0.6 mg/dL (0.55-1.02) 08/05/24 Est GFR (CKD-EPI 2020) 127.67 (mL/min/1.73m2) 08/05/24: Glucose 120 mg/dL (74-106) H 08/05/24: Uric Acid 5.0 mg/dL (2.6-6.0) 08/05/24 Calcium 9.1 mg/dL (8.5-10.1) 08/05/24 Total Bilirubin 0.2 mg/dL (0.2-1.0) 08/05/24: AST 23 U/L (15-37) 08/05/24: ALT 28 U/L (14-59) 08/05/24: Alkaline Phosphatase 151 U/L (46-116) H 08/05/24 09:28 Total Protein 6.4 g/dL (6.4-8.2) 08/05/24 09: Albumin 2.4 g/dL (3.4-5.0) L 08/05/24 09:28 ABO/Rh O Positive 08/05/24 09: Antibody Screen NEGATIVE 08/05/24 09: Vital Signs Reviewed: Yes Notable Details: Normal serum PEC labs Subjective Interval history since last seen: 24-year-old at 37+0 here for IOL secondary to pre-eclampsia without severe features. She is starting to feel uterine contractions, mostly as tightening in her upper abdomen. Morgan supportive at bedside. No q/c at this time. Results Hemoglobin/Hematocrit: Hgb 12.5 g/dL (11.2-15.7) 08/05/24 09:28 Hct 36.6 % (36.0-46.0) 08/05/24 09:28 Abnormal Lab Findings: Abnormal Labs 08/05/24 09:28 Sodium 134 L Glucose 120 H Alkaline Phosphatase 151 H Albumin 2.4 L
[2024-08-05] MEDS: Oxytocin/Normal Saline 30 UNIT/500 ML BAG 6 UNITS IV (15:00)
[2024-08-05] MEDS: Ondansetron 4 MG/2 ML VIAL (17:22)
[2024-08-05] MEDS: Calcium Carbonate *TUMS* 500 MG CHEW 1000 MG PO (17:22)
[2024-08-05] MEDS: FentaNYL/ROPIvacaine 2 mcg/ml and 0.1% 200 ML CADD Cassette EP (18:22)
[2024-08-05] MEDS: Penicillin G POT. 3,000,000 UNITS in Normal Saline 50 ML 100 UNITS IVPB (18:22)
[2024-08-05] MEDS: Labetalol 100 MG TAB 200 MG PO (18:24)
--- NOTE | 2024-08-05 18:41 | W.ANESNEU ---
Epidural/Spinal Catheter Date Performed: 08/05/24 Procedure Start: 18:06 Procedure Stop: 18:13 Requesting Provider: Ghazala Rodgers Procedure Location: Obstetrics Reason Performed: Labor Epidural Standard Monitors Applied: ECG, Blood Pressure, SpO2 and See EMR for corresponding vital signs Patient Position: Sitting Sedation Given (Indicate Dose Given): No Sedation given Patient Mental Status: Awake Sterility: Hand Hygiene, Surgical Cap, Surgical Mask, Sterile Gloves, Sterile Drape/Sheet and Chlorhexidine Procedure Location: L3-L4 Interspace Epidural Needle: Tuohy 18 Gauge Needle Length: 3.5 Inch Needle Approach: Midline Epidural Procedure: Skin Prepped, Sterile Drape Placed, 1% Lidocaine to skin and subcutaneous tissue with 25G needle, Tuohy Needle placed, RACHELE to Saline Used, Epidural Catheter Placed, Negative Heme, Negative CSF Flow and Tuohy Needle Removed Catheter Placed?: Catheter Placed Test Dose (Indicate Dose Given): 3ml 1.5% Lidocaine with 1:200K Epinephrine Given and Negative Test Dose Loss of Resistance Depth (cm): 7 Catheter depth at skin (cm): 13 Dressing: [place] Dressing Placed Epidural Provider Bolus (Indicate Dose Given): Total bolus dose given in 3-5 ml divided doses and Total Ropivacaine 0.1% with Fentanyl 2mcg/ml Given from pump. (ml) Dose:: 13 mL Additives (Indicate Dose Given ): None Infusion Medication: Medication Infusion Began Medication Infusion: Ropivacaine 0.1% with Fentanyl 2mcg/ml Maintenance Infusion Rate (ml/hour): 10 PCEA Bolus Dose (ml): 5 Block Level: N/A Paresthesia: None Ultrasound: Not Used Number of Attempts (See previous attempts in note section): 1 Procedure Tolerated: No Complications and Patient tolerated well Procedure Outcome: Successful Performed By: Ada Cotton
--- NOTE | 2024-08-05 18:45 | W.PM.OBNL1 ---
Date of service: 08/05/24 Time of Service: 18:45 Informed Consent Informed Consent: Induction of Labor Pelvic Exam Comments: Leaking clear fluid. Contractions Monitor Mode: External Contraction Frequency(min): 2-3 mins Contraction Duration(sec): 60 Intensity: Moderate/Strong Fetus A Monitor: External (US) Heart Rate Baseline: 135 Presentation: Vertex Variability: Moderate (6-25 BPM) Categories: Category II FHR Rhythm: Regular Characteristics: Indeterminate Decelerations: Late Recurrence: Intermittent Amniotic Membrane Status: Ruptured Assessment Note: Cat 2 for intermittent late decels after epidural, improved with maternal repositioning. Assessment and Plan Assessment and plan (1) Encounter for induction of labor: Start date: 08/05/24 Start time: 18:50 Status: Acute Assessment and plan: 24-year-old at 37+0 here for IOL secondary to PEC w/o severe features Labor: s/p Muniz, 1 dose 25 mcg Miso, Pitocin titration to max of 12 mU/min, AROM x 2.5 hours. Plan SVE after comfortable with epidural. Continue Pitocin titration per protocol. Pain: Getting comfortable with epidural. Fetus: Cat 2 Indeterminate, however with moderate variability and improvement from recurrent immediately following epidural to occasional after maternal repositioning. (2) Pre-eclampsia affecting , antepartum: Status: Acute Assessment and plan: Severe range BPs noted when BP taken during painful contractions that improve to mild range on repeat. Will continue to monitor per protocol. Denies PEC sxs Continue 200 mg Labetalol BID Judicious use of Methergine (3) Impaired glucose in , antepartum: Status: Acute Assessment and plan: Should precautions at delivery (4) GBS (group B Streptococcus carrier), +RV culture, currently : Status: Acute Assessment and plan: Continue PCN ppx per protocol Objective Abnormal lab results 08/05/24 Range/Units 09:28 Sodium 134 L (136-145) mmol/L Glucose 120 H (74-106) mg/dL Alkaline Phosphatase 151 H (46-116) U/L Albumin 2.4 L (3.4-5.0) g/dL Temp Pulse Resp BP Pulse Ox 97.9 F 80 18 130/79 100 08/05/24 18:37 08/05/24 18:44 08/05/24 18:40 08/05/24 18:40 08/05/24 18:44 Laboratory Results WBC 7.44 10^3/uL (4.4-10.8) 08/05/24 09: RBC 4.42 10^6/uL (3.93-5.22) 08/05/24 09: Hgb 12.5 g/dL (11.2-15.7) 08/05/24 09: Hct 36.6 % (36.0-46.0) 08/05/24: MCV 83 fL (80-95) 08/05/24 09: MCH 28.3 pg (27.0-33.0) 08/05/24: MCHC 34.2 % (32.0-36.0) 08/05/24: RDW 14.0 % (11.7-14.6) 08/05/24 09: Plt Count 232 10^3/uL (130-400) 08/05/24 09: MPV 10.9 fL (8.0-11.0) 08/05/24 09: Sodium 134 mmol/L (136-145) L 08/05/24: Potassium 3.9 mmol/L (3.5-5.1) 08/05/24: Chloride 104 mmol/L (98-107) 08/05/24: Carbon Dioxide 22.1 mmol/L (21.0-32.0) 08/05/24: Anion Gap 7.9 mmol/L (3-11) 08/05/24 09: BUN 8 mg/dL (7-18) 08/05/24 09: Creatinine 0.6 mg/dL (0.55-1.02) 08/05/24 09: Est GFR (CKD-EPI 2020) 127.67 (mL/min/1.73m2) 08/05/24 09: Glucose 120 mg/dL (74-106) H 08/05/24: Uric Acid 5.0 mg/dL (2.6-6.0) 08/05/24: Calcium 9.1 mg/dL (8.5-10.1) 08/05/24 09: Total Bilirubin 0.2 mg/dL (0.2-1.0) 08/05/24 09:28 AST 23 U/L (15-37) 08/05/24 09: ALT 28 U/L (14-59) 08/05/24: Alkaline Phosphatase 151 U/L (46-116) H 08/05/24 09: Total Protein 6.4 g/dL (6.4-8.2) 08/05/24 09: Albumin 2.4 g/dL (3.4-5.0) L 08/05/24: ABO/Rh O Positive 08/05/24 09: Antibody Screen NEGATIVE 08/05/24: Subjective Interval history since last seen: Patient getting comfortable with epidural. Results Hemoglobin/Hematocrit: Hgb 12.5 g/dL (11.2-15.7) 08/05/24: Hct 36.6 % (36.0-46.0) 08/05/24: Abnormal Lab Findings: Abnormal Labs 08/05/24 09: Sodium 134 L Glucose 120 H Alkaline Phosphatase 151 H Albumin 2.4 L
[2024-08-05] MEDS: Oxytocin/Normal Saline 30 UNIT/500 ML BAG 95 UNITS IV (19:55)
[2024-08-05] MEDS: miSOPROStol 200 MCG TAB 800 MCG PR (20:05)
--- NOTE | 2024-08-05 21:05 | NUR.NOTE ---
Nursing Note: Epidural Off
--- NOTE | 2024-08-05 21:15 | OBVDS_ITS ---
Date of service: 08/05/24 Time of Service: 21:15 OB Labor/ Delivery Information Baby A Delivery Delivery Method: Spontaneaous Presentation: Cephalic Cephalic Position: Vertex Vertex Position: Right Occipital Anterior Cord Description-Baby A: 3 Vessels and Clamped/Cut Amniotic Fluid: Clear Estimated Blood Loss: 600 Delivery Outcome: Liveborn Infant Transferred: Remains with Mother Note: Stacy is a 24-year-old G2 now P1011 who presented for induction of labor secondary to pre-eclampsia without severe features. She was 2 cm on arrival and received a Muniz with one dose of Misoprostol, Pitocin titration to maximum of 12 mU/min and AROM for clear fluid. She was GBS+ and received adequate PCN prophylaxis. She received an epidural and progressed along a normal labor curve to deliver a viable female Petey with APGARs of 9/9, weighing 3620 grams. The delivered OA and restituted to PAZ. No nuchal, no meconium. The shoulders delivered easily and the was brought to the maternal chest with immediate strong cry noted. Delayed cord clamping was performed until the cord stopped pulsing. The cord was clamped by the CNM and cut by the father of the baby, Morgan. The placenta delivered [place] and was noted to be intact with a 3-vessel cord. Immediately following, brisk bleeding was noted. Uterine atony was suspected and double strength Pitocin and 800 mcg Misoprostol NV given. Bleeding improved significantly. The vulva and vagina were inspected. A 2nd degree laceration (hidden; with intact perineum), repaired in the usual fashion and a right labial laceration was hemostatic and re-approximated with 1 interrupted suture. Hemostasis appreciated. EBL 600 mL. Mother and Baby stable and initiated. Providers Nurse Research Development Manager: Ghazala Rodgers Supervisor Stave Finishing: Ada Cotton Turbine Engine Assembler: Srinivas Reynoso Nurse: Yasmin Hunter Nurse: Catrina Washington Labor/Delivery Information Number of Babies in Womb: 1 Steroids Given: None Group Beta Strep: Positive Antibiotics Administered: Yes Number of Doses of Antibiotics: 2 Rubella Status: Immune Blood Type: O+ Varicella Immunity: Immune Maternal Complications: None Shoulder Dystocia: No Stages of Labor Onset of Labor Date: 08/05/24 ROM Baby A: 08/05/24 ROM Baby A: 16:22 Infant Delivery Date-Baby A: 08/05/24 Delivery Time-Baby A: 19:49 Placenta Delivery Date-Baby A: 08/05/24 Placenta Delivery Time-Baby A: 19:57 Labor-Stage 3 Duration: 8 minutes Placenta Cultured: No Placenta Status: Delivered Baby A Infant Gender: Female Gestational Status: Early Term (37-38.6 wks) Gestational Age in Weeks/Days: 37 Weeks and 0 Days Score-1 Minute Interval(Baby A) Heart Rate-1 minute: 100 BPM or Greater Respiratory Effort- 1 minute: Spontaneous/Strong Cry Muscle Tone-1 minute: Active Movement Reflex Response-1 minute: Prompt Response Color-1 minute: Bluish Hands or Feet Total Score-1 minute: 9 Score-5 Minute Interval(Baby A) Heart Rate- 5 minute: 100 BPM or Greater Respiratory Effort-5 minute: Spontaneous/Strong Cry Muscle Tone-5 minute: Active Movement Reflex Response-5 minute: Prompt Response Color-5 minute: Bluish Hands or Feet Total Score- 5 minute: 9
[2024-08-05] MEDS: Acetaminophen 325 MG TAB 650 MG PO (22:00)
[2024-08-05] MEDS: Prenatal Multivitamin w/CA,FE TAB 1 TAB PO (22:01)
[2024-08-05] MEDS: Ibuprofen 600 MG TAB PO (22:01)
[2024-08-05] MEDS: Hamamelis Leaf/Glycerin 100 EACH BOX PR (22:02)
[2024-08-05] MEDS: Dibucaine 1% 28 GM TUBE TP (22:02)
[2024-08-06] VITALS (8 sets, daily range): BP systolic 131–151; BP diastolic 82–101; PULSE 74–94; RESP 18; TEMP 36.6–36.9; O2SAT 96–99
[2024-08-06] MEDS: Ibuprofen 600 MG TAB PO ×3 (06:15→19:19)
[2024-08-06] MEDS: Labetalol 100 MG TAB 200 MG PO (06:16)
[2024-08-06] MEDS: Acetaminophen 325 MG TAB 650 MG PO ×3 (06:16→19:19)
[2024-08-06 07:00] LABS: HCT 34.4 % (36.0-46.0); HGB 11.6 g/dL (11.2-15.7); MCH 27.9 pg (27.0-33.0); MCHC 33.7 % (32.0-36.0); MCV 83 fL (80-95); MPV 11.1 fL (8.0-11.0); Platelet Count 241 10^3/uL (130-400); RBC 4.16 10^6/uL (3.93-5.22); RDW 14.1 % (11.7-14.6); RDW-SD 42.2 fL; WBC 15.17 10^3/uL (4.4-10.8)
--- NOTE | 2024-08-06 12:27 | W.PM.OBPNV1 ---
Date of service: 08/06/24 Time of Service: 12:27 Assessment and Plan Assessment and plan (1) Term of female : Status: Acute Assessment and plan: Caring for baby independently. Pain is managed well with oral analgesics. Voiding without difficulty. well. Hgb and HCT WNL today. A - stable mother and baby , Post day 1 P - Discharge to home tomorrow. Routine post instructions. [facility] Subjective Subjective Interval history: Bindu feels well. her baby Patient comments: No complaints and Pain well controlled Patient's Mood: good baby status: Doing well feeding status: Exclusively breast feeding Exam Physical Exam Vital signs: Temp Pulse Resp BP Pulse Ox 97.9 F 84 18 131/88 96 08/06/24 07:59 08/06/24 11:41 08/06/24 11:41 08/06/24 11:41 08/06/24 11:41 Vital Signs Reviewed: Yes Constitutional Constitutional: no acute distress Respiratory Exam Respiratory Exam: Normal Cardiovascular Exam Cardiovascular Exam: Normal Fundal Exam Fundus: Below Umbilicus and Firm Rectal Exam Rectal Exam: Normal Extremities Exam Extremity Exam: Normal Skin Exam Skin Exam: Normal Psychiatric Exam Psychiatric Exam: Normal Results Hemoglobin/Hematocrit: Hgb 11.6 g/dL (11.2-15.7) 08/06/24 06:10 Hct 34.4 % (36.0-46.0) L 08/06/24 06:10 Abnormal Lab Findings: Abnormal Labs 08/05/24 08/06/24 09:28 06:10 WBC 15.17 H Hct 34.4 L MPV 11.1 H Sodium 134 L Glucose 120 H Alkaline Phosphatase 151 H Albumin 2.4 L
[2024-08-06] MEDS: Dibucaine 1% 28 GM TUBE TP (13:11)
--- NOTE | 2024-08-06 17:06 | W.PM.OBPNV1 ---
Date of service: 08/06/24 Time of Service: 17:09 Assessment and Plan Assessment and plan (1) Pre-eclampsia affecting , antepartum: Status: Acute Assessment and plan: A: Mild range pressures without severe features, Currently taking labetalol 200 mg PO BID <24 hrs, P: Reviewed BP levels with Dr. Del Rio Will switch medication to Nifedipine XL 30 mg qd Observe BP response overnight Expect discharge to home tomorrow morning Plan for BP check in office 2-3 days after discharge (2) Term delivered: Status: Acute Exam Physical Exam Vital signs: Temp Pulse Resp BP Pulse Ox 98.1 F 74 18 147/95 H 99 08/06/24 15:17 08/06/24 15:17 08/06/24 15:17 08/06/24 15:17 08/06/24 15:17 Vital Signs Reviewed: Yes Constitutional Constitutional: no acute distress, average body habitus and cooperative HEENT Exam HEENT Exam: Normal Neck Exam Neck Exam: Normal Breast Exam Bilateral: Breast Exam: Normal and Soft Nipple Exam: Normal and Uninjured Respiratory Exam Respiratory Exam: Normal Cardiovascular Exam Cardiovascular Exam: Normal Abdominal Exam Abdomen: Other (soft, nontender) Fundal Exam Fundus: Below Umbilicus and Firm Rectal Exam Rectal Exam: Normal Exam Perineum: Repair Intact Extremities Exam Extremity Exam: Normal Back/Spine/Pelvis Exam Back Exam: Normal Skin Exam Skin Exam: Normal Neurological Exam Neurological Exam: Normal Psychiatric Exam Psychiatric Exam: Normal Results Hemoglobin/Hematocrit: Hgb 11.6 g/dL (11.2-15.7) 08/06/24 06:10 Hct 34.4 % (36.0-46.0) L 08/06/24 06:10 Abnormal Lab Findings: Abnormal Labs 08/05/24 08/06/24 09:28 06:10 WBC 15.17 H Hct 34.4 L MPV 11.1 H Sodium 134 L Glucose 120 H Alkaline Phosphatase 151 H Albumin 2.4 L
[2024-08-06] MEDS: NIFEdipine-CR 30 MG TABCR PO (17:41)
[2024-08-06] MEDS: Prenatal Multivitamin w/CA,FE TAB 1 TAB PO (21:07)
[2024-08-07] VITALS: BP 138/97; PULSE 70; RESP 18; TEMP 36.8
[2024-08-07] MEDS: Acetaminophen 325 MG TAB 650 MG PO (03:57)
[2024-08-07] MEDS: Ibuprofen 600 MG TAB PO (03:57)
[2024-08-07 04:00] VITALS: BP 138/97; PULSE 70; RESP 18
--- NOTE | 2024-08-07 04:19 | W.PM.OBPNV1 ---
Date of service: 08/07/24 Time of Service: 04:19 Assessment and Plan Assessment and plan (1) Pre-eclampsia affecting , antepartum: Status: Acute Assessment and plan: A: Mild range pressures persist after Procardia XL 30 mg PO Pt denies ALVAREZ or RUQ pain, lochia flow nml for 24 hrs P: Labetalol 200 mg PO now repeat CBC and CMP Review lab results and medication plan with MD (2) Term delivered: Status: Acute Exam Physical Exam Vital signs: Temp Pulse Resp BP Pulse Ox 98.3 F 70 18 138/97 H 97 08/07/24 00:00 08/07/24 04:00 08/07/24 04:00 08/07/24 04:00 08/06/24 17:15 Vital Signs Reviewed: Yes Constitutional Constitutional: no acute distress, average body habitus and cooperative HEENT Exam HEENT Exam: Normal Neck Exam Neck Exam: Normal Breast Exam Bilateral: Breast Exam: Normal and Soft Respiratory Exam Respiratory Exam: Normal Cardiovascular Exam Cardiovascular Exam: Normal Abdominal Exam Abdomen: Other (soft, nontender) Fundal Exam Fundus: Below Umbilicus and Firm Rectal Exam Rectal Exam: Normal Exam Perineum: Repair Intact Extremities Exam Extremity Exam: Normal Back/Spine/Pelvis Exam Back Exam: Normal Skin Exam Skin Exam: Normal Neurological Exam Neurological Exam: Normal Psychiatric Exam Psychiatric Exam: Normal Hemorrrhage Note IV Site Left Hand: IV Catheter Gauge: 20
[2024-08-07] MEDS: Labetalol 100 MG TAB 200 MG PO (04:33)
[2024-08-07 06:45] LABS: HCT 34.4 % (36.0-46.0); HGB 11.6 g/dL (11.2-15.7); MCH 28.2 pg (27.0-33.0); MCHC 33.7 % (32.0-36.0); MCV 84 fL (80-95); MPV 10.5 fL (8.0-11.0); Platelet Count 228 10^3/uL (130-400); RBC 4.11 10^6/uL (3.93-5.22); RDW 14.3 % (11.7-14.6); RDW-SD 43.3 fL; WBC 9.65 10^3/uL (4.4-10.8)
[2024-08-07 08:15] VITALS: BP 135/87; PULSE 78; RESP 17; TEMP 36.7; O2SAT 97
[2024-08-07 09:21] LABS: ALT 34 U/L (14-59); AST 39 U/L (15-37); Albumin 2.4 g/dL (3.4-5.0); Alkaline Phosphatase 120 U/L (46-116); Anion Gap 10.8 mmol/L (3-11); BUN 8 mg/dL (7-18); Bilirubin, Total 0.2 mg/dL (0.2-1.0); CO2 25.2 mmol/L (21.0-32.0); CREATININE 0.7 mg/dL (0.55-1.02); Calcium 9.2 mg/dL (8.5-10.1); Chloride 104 mmol/L (98-107); Estimated GFR 123.01 (mL/min/1.73m2); Glucose 84 mg/dL (74-106); Potassium 4.1 mmol/L (3.5-5.1); Sodium 140 mmol/L (136-145); Total Protein 6.3 g/dL (6.4-8.2)
--- NOTE | 2024-08-07 11:26 | W.ANESPOSTOP ---
Postoperative Evaluation Date, Time and Location Date Performed: 08/07/24 Time Performed: 11:26 Patient Location: Obstetrics Vital Signs Most Recent Imported Vital Signs: Most Recent Vital Signs Temp Pulse Resp BP Pulse Ox 36.7 C 78 17 135/87 97 08/07/24 08:15 08/07/24 08:15 08/07/24 08:15 08/07/24 08:15 08/07/24 08:15 Pain Score Most Recent Pain Score: Most Recent Pain Score Pain Level [Abdomen] 0 08/07/24 08:15 Pain Level 4 08/07/24 03:57 Assessment Mental Status: Awake (Alert & Oriented to Patient Baseline) Airway and Respiratory Function: Patent airway with normal (patient baseline) respiratory exam Cardiovascular Function: Hemodynamically Stable Hydration Status: Adequately Hydrated Nausea & Vomiting: No Nausea or Vomiting Pain: Pt. Denies Any Pain Peripheral Nerve Block: Patient did not receive a nerve block
--- NOTE | 2024-08-07 12:23 | OBPPV_ITS ---
Date of service: 08/07/24 Time of Service: 12:23 Assessment and Plan Assessment and plan (1) Pre-eclampsia affecting , antepartum: Status: Acute Assessment and plan: A: Mild range pressures with severe feature of slightly elevated AST this morning (@39) Pt feels well, desires discharge to home is going well P: Consultation with Dr. Ware Continue Nifedipine 30 XL q24hrs and labetalol 200 mg PO BID F/up 08/09 in office for BP check and repeat LFT's Written instructions reviewed with pt and given Warning sx of pre-eclampsia reviewed with pt F/up this Monday, at 1 wk, 2wks and 6 wks (2) Term delivered: Status: Acute Subjective Subjective Patient comments: No complaints, Pain well controlled, Tolerating diet and Flatus present Patient's Mood: happy [place] baby status: Doing well, Nursing well, Rooming in and Strong Bonding Observed feeding status: Exclusively breast feeding Exam Physical Exam Vital signs: Temp Pulse Resp BP Pulse Ox 98.0 F 78 17 135/87 97 08/07/24 08:15 08/07/24 08:15 08/07/24 08:15 08/07/24 08:15 08/07/24 08:15 Vital Signs Reviewed: Yes Constitutional Constitutional: no acute distress, average body habitus and cooperative HEENT Exam HEENT Exam: Normal Neck Exam Neck Exam: Normal Breast Exam Bilateral: Breast Exam: Normal and Soft Respiratory Exam Respiratory Exam: Normal Cardiovascular Exam Cardiovascular Exam: Normal Abdominal Exam Abdomen: Other (soft, nontender) Fundal Exam Fundus: Below Umbilicus and Firm Rectal Exam Rectal Exam: Normal Exam Perineum: Repair Intact Extremities Exam Extremity Exam: Normal Back/Spine/Pelvis Exam Back Exam: Normal Skin Exam Skin Exam: Normal Neurological Exam Neurological Exam: Normal Psychiatric Exam Psychiatric Exam: Normal Results Hemoglobin/Hematocrit: Hgb 11.6 g/dL (11.2-15.7) 08/07/24 06:34 Hct 34.4 % (36.0-46.0) L 08/07/24 06:34 Abnormal Lab Findings: Abnormal Labs 08/05/24 08/06/24 08/07/24 09:28 06:10 06:34 WBC 15.17 H Hct 34.4 L 34.4 L MPV 11.1 H Sodium 134 L Glucose 120 H AST 39 H Alkaline Phosphatase 151 H 120 H Total Protein 6.3 L Albumin 2.4 L 2.4 L
--- NOTE | 2024-08-07 12:33 | DSE_ITS ---
Date of service: 08/07/24 Time of Service: 12:33 DS: Diagnosis Discharge Diagnosis (1) Pre-eclampsia affecting , antepartum: Status: Acute (2) Term delivered: Status: Acute Discharge Plan Disposition Patient Disposition: Home Condition: Improving Discharge Details Reason For Visit: Pre-eclampsia Admit Date/Time: 08/05/24 08:43 Admit Provider: Ghazala Rodgers Attending Provider: Ghazala Rodgers Primary Care Provider: Whit Avelar Hospital Course Hospital Course: Induction of labor at 37 weeks for pre-eclampsia, on HD#1, BP remained mild range and controlled with Labetalol and Nifedipine, discharged on PPD#2 with close follow up planned. Home Meds and New Rx's Prescriptions: No Action Classic 28 mg iron- 800 mcg tablet 1 tab PO DAILY nifedipine [Procardia XL] 30 mg tablet extended release 24hr 30 mg PO DAILY Qty: 30 0RF labetalol 200 mg tablet 200 mg PO BID Qty: 60 0RF Discharge Instructions Additional Instructions: Please keep follow up appointments as planned, call for any and all concerns Stand Alone Forms: BC Instructions, BC Post Vaginal Deliver Activity:: Activity as Tolerated Equipment/Supplies:: No Equipment Needed Diet:: Normal Diet OB:DS Summary Summary Vaginal Delivery Method: Spontaneaous Episiotomy Description: Midline Laceration Description: Perineal Laceration Extension: Second Degree Contraception Discussed Contraception Discussed: Yes Contraceptive Plan: Undecided, [place] Gender-Baby A: Female Status at Discharge Functional status at discharge: independent ambulation Overall status at discharge: patient is progressing back to baseline Mental Status: mental status grossly normal Speech and Movement: speech and movement normal and speech clear Mood: congruent mood Affect: normal affect Quality:SDOH Health Related Social Needs: No Data to Display Exam Physical Exam Vital signs: Temp Pulse Resp BP Pulse Ox 98.0 F 78 17 135/87 97 08/07/24 08:15 08/07/24 08:15 08/07/24 08:15 08/07/24 08:15 08/07/24 08:15 Constitutional Constitutional: no acute distress, average body habitus and cooperative HEENT Exam HEENT Exam: Normal Neck Exam Neck Exam: Normal Breast Exam Bilateral: Breast Exam: Normal and Soft Respiratory Exam Respiratory Exam: Normal Cardiovascular Exam Cardiovascular Exam: Normal Abdominal Exam Abdomen: Other (soft, nontender) Fundal Exam Fundus: Below Umbilicus and Firm Rectal Exam Rectal Exam: Normal Exam Perineum: Repair Intact Extremities Exam Extremity Exam: Normal Back/Spine/Pelvis Exam Back Exam: Normal Skin Exam Skin Exam: Normal Neurological Exam Neurological Exam: Normal Psychiatric Exam Psychiatric Exam: Normal PFSH All Active Problems (Updated 08/06/24 @ 17:07 by Jemima Henrqiuez) Term delivered (Acute) Pre-eclampsia affecting , antepartum (Acute) Gestational hypertension (Acute) Bilateral nephrolithiasis (Acute) Hydronephrosis of right kidney (Acute) Obesity (BMI 35.0-39.9 without comorbidity) (Acute) Medical History (Updated 08/06/24 @ 17:07 by Jemima Henriquez) GBS (group B Streptococcus carrier), +RV culture, currently Impaired glucose in , antepartum Term of female Elevated glucose Dysuria Glucosuria Right flank pain Hematuria Kidney stones 2018 [facility] Ed Date of last menstrual period (LMP) unknown Missed menses Surgical History (Updated 12/25/23 @ 15:01 by Naomi Silva CNM) S/P appendectomy Tooth extraction extractions Family History (Updated 12/25/23 @ 15:02 by Naomi Silva CNM) Mother Essential hypertension Brother Asthma Brother Asthma outgrown Maternal Grandfather Diabetes Heart disease Social History Smoking/Tobacco Use Status: Never Smoking risk assessment performed?: Yes Alcohol Intake: never Drug use: Never Substance use type: does not use Housing: house Do you feel safe at home: Yes Do you feel safe in your relationship?: Yes History History 2 Para 0 Hx # Term Pregnancies 0 Multiple births 0 Hx # Pregnancies 0 Ectopic pregnancies 0 AB induced 1 Hx Number of Living Children 0 AB spontaneous 0 DS: Data Vitals/I&O Vitals and I&O: Vital Signs Temperature 98.0 F 08/07/24 08:15 Temperature 97.7 F 08/05/24 08:02 Temperature Source Oral 08/07/24 00:00 Pulse 78 08/07/24 08:15 Pulse 94 08/05/24 08:02 Pulse Rhythm Regular 08/06/24 07:59 Respiratory Rate 17 08/07/24 08:15 Blood Pressure 135/87 08/07/24 08:15 Blood Pressure 120/72 08/05/24 08:02 Blood Pressure Mean 103 08/07/24 08:15 Pulse Oximetry 97 08/07/24 08:15 Pain Level 0 08/07/24 08:15 Comment CNM aware of BP 08/06/24 18:43 Data Completed and Pending Labs on day of discharge: Labs from last 24 hours 08/07/24 06:34: WBC 9.65, RBC 4.11, Hgb 11.6, Hct 34.4 L, MCV 84, MCH 28.2, MCHC 33.7, RDW 14.3, Plt Count 228, MPV 10.5, Sodium 140, Potassium 4.1, Chloride 104, Carbon Dioxide 25.2, Anion Gap 10.8, BUN 8, Creatinine 0.7, Est GFR (CKD- EPI 2020) 123.01, Glucose 84, Calcium 9.2, Total Bilirubin 0.2, AST 39 H, ALT 34, Alkaline Phosphatase 120 H, Total Protein 6.3 L, Albumin 2.4 L
[2024-08-07] MEDS: Dibucaine 1% 28 GM TUBE TP ×2 (13:15)
== END 2024-08-07 13:28 | disposition home or self-care (01) | DRG 807 ==
PROVIDERS: Advanced Practice Midwife; Admitting Provider Advanced Practice Midwife; PCP Nurse Practitioner Family; Visit Provider Advanced Practice Midwife
DX: O14.04 Mild to moderate pre-eclampsia, complicating childbirth (principal); Z37.0 Single live birth; O99.824 Streptococcus B carrier state complicating childbirth; Z3A.37 37 weeks gestation of pregnancy; O99.814 Abnormal glucose complicating childbirth; O75.89 Other specified complications of labor and delivery; O70.1 Second degree perineal laceration during delivery; O99.214 Obesity complicating childbirth; E66.9 Obesity, unspecified
CPT/HCPCS: 36415; 80053; 85027; 86850; 86900; 86901; 59200; 84550; J2405; J2540; J3490

== ENCOUNTER 2024-08-09 02:45 | Outpatient (CLI) | payer BC, SELFPAY ==
[2024-08-09 05:53] LABS: HCT 36.4 % (36.0-46.0); MCH 27.7 pg (27.0-33.0); MCV 84 fL (80-95); MPV 10.2 fL (8.0-11.0); Platelet Count 301 10^3/uL (130-400); RBC 4.33 10^6/uL (3.93-5.22); RDW 13.8 % (11.7-14.6); RDW-SD 42.5 fL; WBC 8.69 10^3/uL (4.4-10.8)
[2024-08-09 06:07] LABS: ALT 170 U/L (14-59); AST 133 U/L (15-37); Albumin 2.8 g/dL (3.4-5.0); Alkaline Phosphatase 126 U/L (46-116); Anion Gap 10.7 mmol/L (3-11); BUN 8 mg/dL (7-18); Bilirubin, Total 0.2 mg/dL (0.2-1.0); CO2 24.3 mmol/L (21.0-32.0); CREATININE 0.6 mg/dL (0.55-1.02); Calcium 9.8 mg/dL (8.5-10.1); Chloride 102 mmol/L (98-107); Estimated GFR 127.67 (mL/min/1.73m2); Glucose 81 mg/dL (74-106); Potassium 3.8 mmol/L (3.5-5.1); Sodium 137 mmol/L (136-145)
[2024-08-09 07:25] VITALS: BP 126/84; PULSE 80
--- NOTE | 2024-08-09 07:54 | W.OBCONSULT ---
Date of service: 08/09/24 Time of Service: 07:54 Assessment and Plan Assessment and plan (1) Term delivered: Status: Acute Assessment and plan: 4 days status post vaginal after labor induction at 37 weeks for preeclampsia without severe features. (2) Pre-eclampsia affecting , antepartum: Status: Acute Assessment and plan: Patient has now developed help syndrome with elevated blood pressures prior to her initial discharge home, and elevated liver enzymes with normal platelet count today. Overall, her blood pressures remain stable on her antihypertensive regime of 200 mg of labetalol twice daily and Procardia XL 30 mg daily. Extensive conversation and counseling regarding precautions. Patient is to report any changes in her constitutional symptoms including headache, visual changes, epigastric pain, nausea, vomiting, fevers, chills, increased bleeding, decreased urine output. She is scheduled to be seen back in the hospital with her for bilirubin check in 24 hours. She is instructed to check her blood pressure 1 hour after each dose of her medication and report blood pressures that are greater than 150/90. She will have very close surveillance and follow-up. Will reconsider laboratory studies tomorrow if warranted. At this point, I do not think that she needs magnesium sulfate for seizure prophylaxis as she is now 4 days and with relatively stable blood pressures. All questions were answered. History of Present Illness History of Present Illness Chief Complaint: Post pre-eclampsia, HELLP syndrome Narrative: Patient is a 24-year-old female who is from vaginal on 08/05/2024. She had an induction of labor at 37 weeks for preeclampsia without severe features. She had a labor after cervical ripening with a Muniz balloon and misoprostol. She had Pitocin augmentation and subsequent delivery of a viable female named Petey with Apgars of 9 and 9. In the immediate period she had some labile blood pressures and ultimately was discharged home on labetalol, 200 mg p.o. twice daily along with Procardia XL 30 mg daily. The plan had been for short interval follow-up. She was discharged to home on 08/07/2024. Her baby was subsequently admitted to the hospital for jaundice and phototherapy. During the course of her stay, she did have blood pressure monitoring and laboratory studies were done today, 08/09/2024. She was noted to have a normal platelet count of 301 and elevated liver enzymes with an AST of 133 ALT of 170. She did have an elevated AST at 39 prior to her discharge home on 414. Today, she is seen and evaluated in consultation by me. She has no headache, no visual changes, no epigastric pain. She denies nausea or vomiting. She reports that she is urinating briskly. She does have lower extremity edema. Her blood pressures are stable on her current medication regime of labetalol 200 mg twice daily and Procardia XL 30 mg daily. Blood pressure today is 126/84. We had a lengthy conversation over the course of 30 minutes regarding her preeclampsia with severe features and help syndrome. I do not think it is warranted at this point that she needed magnesium sulfate for seizure prophylaxis. She does, however need very close follow-up. She has a blood pressure cuff at home and will check her blood pressures 1 hour after each dose of her antihypertensive medication and report blood pressures of greater than 150/90. Consults Consult date: 08/09/24 Requesting physician: Jemima Henriquez Review of Systems Narrative: Alert, oriented, somewhat emotional. Constitutional Constitutional: Reports as per HPI, Denies headache(s), Denies lethargy and Denies weakness Eyes Eyes: Reports system reviewed and no additional complaints, except as documented, Denies blurry vision, Denies decreased night vision, Denies diplopia and Denies loss of vision ENT Ears, Nose, Mouth, and Throat: Reports system reviewed and no additional complaints, except as documented, Denies dizziness and Denies headache(s) Cardiovascular Cardiovascular: Reports system reviewed and no additional complaints, except as documented, Denies chest pain, Denies chest pain at rest, Denies dyspnea and Denies dyspnea on exertion Respiratory Respiratory: Denies dyspnea and Denies dyspnea on exertion Gastrointestinal Gastrointestinal: Reports as per HPI and Reports system reviewed and no additional complaints, except as documented Genitourinary Genitourinary: Reports system reviewed and no additional complaints, except as documented Musculoskeletal Musculoskeletal: Reports system reviewed and no additional complaints, except as documented and Denies numbness Integumentary/Breasts Skin/Breast: Reports system reviewed and no additional complaints, except as documented Neurologic Neurologic: Denies dizziness, Denies headache(s), Denies localized weakness, Denies loss of vision, Denies numbness and Denies weakness PFSH All Active Problems (Updated 08/09/24 @ 07:56 by Bozena Cadena DO) Term delivered (Acute) Pre-eclampsia affecting , antepartum (Acute) Post HELLP Gestational hypertension (Acute) Bilateral nephrolithiasis (Acute) Hydronephrosis of right kidney (Acute) Obesity (BMI 35.0-39.9 without comorbidity) (Acute) Medical History (Updated 08/09/24 @ 07:56 by Bozena Cadena DO) GBS (group B Streptococcus carrier), +RV culture, currently Impaired glucose in , antepartum Term of female Elevated glucose Dysuria Glucosuria Right flank pain Hematuria Kidney stones 2018 [facility] Ed Date of last menstrual period (LMP) unknown Missed menses Surgical History (Updated 12/25/23 @ 15:01 by Naomi Silva CNM) S/P appendectomy Tooth extraction extractions Family History (Updated 12/25/23 @ 15:02 by Naomi Silva CNM) Mother Essential hypertension Brother Asthma Brother Asthma outgrown Maternal Grandfather Diabetes Heart disease Social History Smoking/Tobacco Use Status: Never Smoking risk assessment performed?: Yes Alcohol Intake: never Drug use: Never Substance use type: does not use Housing: house Do you feel safe at home: Yes Do you feel safe in your relationship?: Yes History History 2 Para 0 Hx # Term Pregnancies 0 Multiple births 0 Hx # Pregnancies 0 Ectopic pregnancies 0 AB induced 1 Hx Number of Living Children 0 AB spontaneous 0 Exam Const General: cooperative, healthy appearing, comfortable and no acute distress Nutritional Appearance: average body habitus HENMA Head: normal to inspection Eyes General: appearance normal, both eyes and all related structures Neck Neck: normal visual inspection, supple and nontender Resp Effort & Inspection: normal respiratory effort, no audible wheezes and no cough Cardio Rate: regular rate Rhythm: regular rhythm GI Inspection: normal to inspection Palpation: soft Neuro General: patient alert, patient awake and patient oriented x3 Cognition: normal cognition Speech: speech normal Motor: muscle tone normal throughout DTR's: Rt Patellar: 3+, Lt Patellar: 3+, Rt Ankle: 2+ and Lt Ankle: 2+ Extrem General: no calf tenderness and edema (2+, lower extremity) Laterality: bilateral Results Last Vital Signs Pulse 80 08/09/24 07:25 BP 126/84 08/09/24 07:25 Labs 05/16/25 05:12 08/09/24 05:12 Labs: Laboratory Results - last 24 hr 08/09/24 05:12 WBC 8.69 RBC 4.33 Hgb 12.0 Hct 36.4 MCV 84 MCH 27.7 MCHC 33.0 RDW 13.8 Plt Count 301 MPV 10.2 Sodium 137 Potassium 3.8 Chloride 102 Carbon Dioxide 24.3 Anion Gap 10.7 BUN 8 Creatinine 0.6 Est GFR (CKD-EPI 2020) 127.67 Glucose 81 Calcium 9.8 Total Bilirubin 0.2 AST 133 H ALT 170 H Alkaline Phosphatase 126 H Total Protein 7.0 Albumin 2.8 L
--- NOTE | 2024-08-09 08:11 | PGE_ITS ---
Date of Service Date of service: 08/09/24 Time of Service: 08:11 Assessment and Plan Assessment and plan (1) Pre-eclampsia affecting , antepartum: Status: Acute Assessment and plan: A: s/p x4 days, BP under control with Labetalol 200 mg BID and Procardia XL 30 mg daily Dieresis as expected , pt denies ALVAREZ or RUQ pain LFT's elevated this morning P: Consult with Dr. Cadena Pt to return home today, take her BP prior to and after medication doses Warning sx reviewed with pt by Dr. Cadena and when to report BP readings Recheck BP tomorrow, repeat LFT's in 48-72 hrs Subjective Subjective Interval history since last seen: pr states she feels well, voiding large amounts often, nml bowel function, working on skills with baby who has jaundice and received phototherapy yesterday and overnight. Exam Narrative Exam Narrative: Well appearing, 4 days s/p IOL for pre-eclampsia Const General: cooperative, healthy appearing, comfortable and well developed Nutritional Appearance: well nourished and overweight Orientation: alert, awake and oriented x3 Resp Effort & Inspection: normal respiratory effort and able to speak in complete sentences Cardio Rate: regular rate Rhythm: regular rhythm GI Inspection: normal to inspection Palpation: soft General: deferred Skin General skin exam: no rashes or lesions noted and elasticity normal Extrem General: full ROM and capillary refill normal Other: trace pedal edema Psych Mood: congruent mood Affect: normal affect and other (a bit teary-eyed when discussing lab results) Attitude: cooperative Thought Process: normal Objective Last Vital Signs Pulse 80 08/09/24 07:25 BP 126/84 08/09/24 07:25 Laboratory Results - last 24 hr 08/09/24 05:12 WBC 8.69 RBC 4.33 Hgb 12.0 Hct 36.4 MCV 84 MCH 27.7 MCHC 33.0 RDW 13.8 Plt Count 301 MPV 10.2 Sodium 137 Potassium 3.8 Chloride 102 Carbon Dioxide 24.3 Anion Gap 10.7 BUN 8 Creatinine 0.6 Est GFR (CKD-EPI 2020) 127.67 Glucose 81 Calcium 9.8 Total Bilirubin 0.2 AST 133 H ALT 170 H Alkaline Phosphatase 126 H Total Protein 7.0 Albumin 2.8 L Time Spent with Patient Time Spent with Patient: <25 minutes Time was spent: preparing to see the patient(eg.review tests), obtaining and/or reviewing separately otained hiistory, ordering medications,tests, procedures and referring, communicating with other health early breastfeeding care specialist
== END 2024-08-09 09:01 | disposition home or self-care (01) ==
LOC: BCD 02:47 → OBS 09:01
PROVIDERS: PCP Nurse Practitioner Family; Visit Provider Advanced Practice Midwife
DX: O14.25 HELLP syndrome, complicating the puerperium (principal)
CPT/HCPCS: 36415; 80053; 85027

== ENCOUNTER 2024-08-10 09:02 | Outpatient (CLI) | payer BC, SELFPAY ==
[2024-08-10 09:52] LABS: HCT 36.6 % (36.0-46.0); HGB 12.3 g/dL (11.2-15.7); MCH 28.7 pg (27.0-33.0); MCHC 33.6 % (32.0-36.0); MCV 85 fL (80-95); Platelet Count 313 10^3/uL (130-400); RBC 4.29 10^6/uL (3.93-5.22); RDW 13.8 % (11.7-14.6); RDW-SD 42.9 fL; WBC 7.49 10^3/uL (4.4-10.8)
[2024-08-10 10:08] LABS: ALT 161 U/L (14-59); AST 81 U/L (15-37); Albumin 2.9 g/dL (3.4-5.0); Alkaline Phosphatase 126 U/L (46-116); BUN 8 mg/dL (7-18); Bilirubin, Total 0.4 mg/dL (0.2-1.0); CREATININE 0.7 mg/dL (0.55-1.02); Calcium 9.4 mg/dL (8.5-10.1); Chloride 105 mmol/L (98-107); Estimated GFR 123.01 (mL/min/1.73m2); Glucose 98 mg/dL (74-106); Potassium 4.5 mmol/L (3.5-5.1); Sodium 139 mmol/L (136-145)
--- NOTE | 2024-08-10 10:59 | W.PM.PROGNOT ---
Date of Service Date of service: 08/10/24 Time of Service: 10:59 Assessment and Plan Assessment and plan (1) Pre-eclampsia affecting , antepartum: Status: Acute Assessment and plan: Stable and improving. Blood pressure remained stable. Continue antihypertensive medications with both labetalol and Procardia. Short interval follow-up in 24 to 48 hours for blood pressure check. No need to repeat labs at this point. Subjective Subjective Interval history since last seen: Patient seen this morning after labs are drawn. Improvement in her liver functions. Patient is feeling well. She denies headache, visual changes, epigastric pain, nausea, vomiting. She is taking her labetalol, 200 twice daily and Procardia XL 30 mg daily. Her blood pressure checks at home have been appropriate in the 120s to 130s over 70s to 80s. She has no signs of worsening preeclampsia. We did conversation regarding her activity, her medications, and ongoing surveillance and symptomatology. She should be seen for a blood pressure reevaluation in 24 to 48 hours. All questions answered. Objective Laboratory Results - last 24 hr 08/10/24 09:30 WBC 7.49 RBC 4.29 Hgb 12.3 Hct 36.6 MCV 85 MCH 28.7 MCHC 33.6 RDW 13.8 Plt Count 313 MPV 10.0 Sodium 139 Potassium 4.5 Chloride 105 Carbon Dioxide 27.0 Anion Gap 7.0 BUN 8 Creatinine 0.7 Est GFR (CKD-EPI 2020) 123.01 Glucose 98 Calcium 9.4 Total Bilirubin 0.4 AST 81 H ALT 161 H Alkaline Phosphatase 126 H Total Protein 7.0 Albumin 2.9 L Time Spent with Patient Time Spent with Patient: 25-34 minutes Time was spent: preparing to see the patient(eg.review tests), obtaining and/or reviewing separately otained hiistory, referring, communicating with other health healthcare administration internship, indepentently interpreting results and counseling the patient
== END 2024-08-10 13:30 ==
LOC: BCD 09:03
PROVIDERS: PCP Nurse Practitioner Family; Visit Provider Advanced Practice Midwife
DX: O14.95 Unspecified pre-eclampsia, complicating the puerperium (principal)
CPT/HCPCS: 36415; 80053; 85027